=== PATIENT | male | born 1935 | race Caucasian/White ===

== ENCOUNTER → 2020-06-03 10:22 | Outpatient (CLI) | payer MEDICARE, OTHER, SELFPAY ==
[2020-06-04 10:41] LABS: COVID19 Sendout Not Detected (Not Detect)
== END ==
PROVIDERS: Family Provider Internal Medicine; PCP Internal Medicine; Visit Provider Physician Assistant
DX: Z11.59 Encounter for screening for other viral diseases (principal)
CPT/HCPCS: 87635

== ENCOUNTER 2020-06-06 11:44 | Day surgery (SDC) | payer MEDICARE, OTHER, SELFPAY ==
[2020-06-03 10:17] VITALS: BMI 28.5
[2020-06-06] VITALS (11 sets, daily range): BP systolic 121–158; BP diastolic 54–79; PULSE 51–63; RESP 11–20; TEMP 36.4–36.9; O2SAT 92–99; BMI 27.6
[2020-06-06] MEDS: LACTATED RINGERS 1,000 ML 42 ML IV ×2 (12:21→14:08)
--- NOTE | 2020-06-06 12:52 | PM.PREOP ---
Pre-operative Note COVID-19 COVID-19 status: Negative Result date/Date tested (Pos, Neg/Pending): 06/03/20 Interval Note History & Physical reviewed/Exam performed by Physician: Yes Changes to H&P: No
[2020-06-06] MEDS: CLINDAMYCIN 900 MG/50 ML PIGGYBACK 50 MG IV (13:24)
--- NOTE | 2020-06-06 13:40 | SUR.OPER ---
Supine on padded OR bed, head on pillow, arms secured on padded arm boards at <90 degrees abduction, legs uncrossed, safety belt at thigh, tape over blanket over lower legs.
[2020-06-06] MEDS: BUPIVACAINE 0.5% (PF) VIAL 30 ML INJ (13:46)
--- NOTE | 2020-06-06 15:14 | PM.OP.1 ---
Operative Date/Time/Diagnoses Date of procedure: 06/06/20 Time of procedure: 15:15 Pre-op diagnosis: Incisional ventral hernia reducible Post-op diagnosis: same Procedure & Clinicians Procedure: Hernia repair with an underlay of mesh Same procedure as scheduled: Yes Indications: Symptomatic hernia in an incision from a laparoscopic colectomy. Surgeon: Rony Garcia Click Yes if Unassisted: Yes Anesthesia Type: General Operative Notes Findings: Large sac with a defect measuring about 5 cm in diameter Closure Type: primary Specimen(s): none sent Prosthetic devices, grafts, tissues, transplants, or devices: Ventralex mesh 8 x 12 cm Estimated Blood Loss (mL): 20 Procedure in detail: The patient was placed supine on the operating table and underwent general LMA anesthesia. He was prepped and draped in the usual fashion. Local anesthetic was infiltrated and a transverse incision is made through the old scar. It was carried down level the hernia sac which was the essentially her right below the skin. The sac was dissected from the overlying tissues and the fascial edge cleared. Id sec did the peritoneum off the overlying muscular wall back at least 4 cm circumferentially. I removed a portion of the sac that was excessively redundant. I closed the defect with a running 2 0 Vicryl. The piece of mesh was then placed over top of this peritoneum and under the muscle wall. It was circumferentially sutured with 0 Vicryl in a running fashion. And occasional interrupted suture was also placed. I sutured the posterior fascia to the underlying mesh. Once this was completed the fascial defect was closed with [id number] 1. Ethibond suture. The subcu was closed with interrupted 3 0 Vicryl and the skin was closed with a running 4 0 Vicryl subcuticular stitch and Steri-Strips. Dressing was applied the patient was awakened and taken to recovery room good condition. Complications: none Post-operative Condition: stable Disposition: PACU Plan for aftercare: Follow-up in the office
[2020-06-06] MEDS: fentaNYL 100 MCG/2 ML INJ IV (15:32)
[2020-06-06] MEDS: ONDANSETRON 4 MG/2 ML INJ IV (15:52)
[2020-06-06] MEDS: OXYCODONE/ACETAMINOPHEN 5/325 TABLET 1 TAB PO ×2 (15:52→16:40)
--- NOTE | 2020-06-06 16:35 | SUR.PHASEII ---
Patient unable to fill prescription at [facility] due to unavailability of medication. (Hydrocodone with Ibuprofen). Called two other pharmacies and neither have that medication in stock. Paged Dr Garcia.
--- NOTE | 2020-06-06 17:08 | SUR.PHASEII ---
Received return call from Dr Garcia regarding pain medication unavailability. Dr Garcia will call in oxycodone for patient at [email or web address]. Patient to vehicle with all belongings returned. Provided discharge paperwork to and instructed to return to [email or web address] for new prescription. V/U. Home in stable condition.
== END 2020-06-06 17:10 | disposition home or self-care (01) ==
PROVIDERS: Family Provider Internal Medicine; Referring Provider Specialist; Visit Provider Specialist
PROC: (CPT 49560; principal; 2020-06-06 12:45)
DX: K43.2 Incisional hernia without obstruction or gangrene (principal); I10 Essential (primary) hypertension; G47.33 Obstructive sleep apnea (adult) (pediatric); Z85.51 Personal history of malignant neoplasm of bladder
CPT/HCPCS: 49560; 49568; C1781; J2405; J2704; J3010

== ENCOUNTER → 2020-08-06 13:22 | Outpatient (CLI) | payer MEDICARE, OTHER, SELFPAY ==
[2020-08-08 02:24] LABS: COVID19 Sendout Not Detected (Not Detect)
== END ==
PROVIDERS: Family Provider Internal Medicine; Visit Provider Nurse Practitioner
DX: Z11.59 Encounter for screening for other viral diseases (principal)
CPT/HCPCS: 87635

== ENCOUNTER 2020-08-09 09:46 | Day surgery (SDC) | payer MEDICARE, OTHER, SELFPAY ==
[2020-08-09] VITALS (7 sets, daily range): BP systolic 101–139; BP diastolic 56–76; PULSE 54–66; RESP 10–16; TEMP 36.2–37; O2SAT 96–99; BMI 27.7
--- NOTE | 2020-08-09 | PATH_ITS ---
[facility] Accession Number: [id number] . 01 Material submitted: . PART A: colon - POLYP @ 55 CM PART B: colon - ASCENDING COLON POLYP PART C: colon - POLYP @ 20CM . 01 Clinical history: . SDC . 02 Diagnosis: A. Colon, Polyp at 55 cm, Biopsy: Hyperplastic polyp. . B. Ascending Colon, Polyp, Biopsy: Tubular adenoma. . C. Polyp, 20 cm, Biopsy: Hyperplastic polyp. MRV 08/11/2020 1247 Local . 02 Electronically signed: . Preeti Urban MD, Pathologist NPI- [id number] . 01 Gross description: . Part A: POLYP @ 55 CM: Received in formalin is 1 fragment(s) of garcia, soft tissue measuring 5 x 0.3 x 0.2 cm submitted entirely in 1 cassette(s) Part B: ASCENDING COLON POLYP: Received in formalin are 2 fragment(s) of garcia, soft tissue measuring 0.2 x 0.2 x 0.2 cm to 0.5 x 0.3 x 0.3 cm submitted entirely in 1 cassette(s) Part C: POLYP @ 20CM: Received in formalin are 3 fragment(s) of garcia, soft tissue measuring 0.2 x 0.2 x 0.2 cm to 0.6 x 0.3 x 0.2 cm submitted entirely in 1 cassette(s) /MARY 08/10/2020 0145 Local . 02 Pathologist provided ICD-10: D12.2 . 02 CPT . 881768, 003114, [id number] Performed at: [address], [place], [place] [id number] MD Ryan Gallagher MD Phone: [phone] Performed at: 02 [facility] [address] [place] [id number] MD Preeti Urban MD Phone: [phone]
[2020-08-09] MEDS: LACTATED RINGERS 1,000 ML 200 ML IV (10:26)
--- NOTE | 2020-08-09 11:22 | PM.HP.1 ---
History of Present Illness History of Present Illness Date Patient Seen: 08/09/20 Time Patient Seen: 11:22 Chief complaint: SDC Narrative: The patient is a gentleman here for a screening colonoscopy. He had a colon resection a year ago and is this is his 1st colonoscopy since the resection. The last colonoscopy he had was prior to his operation. He does not appear to be followed by any oncologist. Patient History Medical History Allergic rhinitis (Chronic) BPH (benign prostatic hyperplasia) (Chronic) Erectile dysfunction (Chronic) GERD (gastroesophageal reflux disease) (Chronic) Glaucoma (Acute) Hearing loss (Acute) HTN (hypertension) (Chronic) Neoplasm, bladder (Chronic) Obstructive sleep apnea of adult (Chronic) Scoliosis (Acute) Spinal stenosis (Acute) Surgical History H/O transurethral resection of prostate (Resolved) History of surgery (Acute) Hx of appendectomy (Acute) Hx of cataract surgery (Acute) Hx of hernia repair (Acute) Hx of toe surgery (Acute) Hx of vasectomy (Acute) Status post biopsy of thyroid gland (Acute) Family & Social History Family History Father Heart disease Gallstones Cancer Mother Cancer Social History: household members spouse lives independently Yes caregiver/support person No Tobacco & Substance use: Smoking Status Never smoker alcohol intake current alcohol intake frequency 0-2 drinks per day Substance Use Type does not use Meds Home Medications and Allergies Home Medications Medication Instructions Recorded Confirmed Type latanoprost [Xalatan] 1 p [facility] HS #0 02/12/11 08/09/20 History alfuzosin [Uroxatral] 10 mg PO BEDTIME #0 11/09/11 08/09/20 History aspirin 81 mg tablet,delayed 81 mg PO DAILY 07/23/18 08/09/20 History release fluticasone propionate 50 2 spray NASAL DAILY 07/23/18 08/09/20 History mcg/actuation nasal spray,suspension loratadine 10 mg tablet 10 mg PO DAILY 07/23/18 08/09/20 History rabeprazole 20 mg tablet,delayed 20 mg PO DAILY 07/23/18 08/09/20 History release Respironics Dreamstation CPAP #1 ea 03/25/19 08/09/20 History amlodipine 10 mg tablet 10 mg PO DAILY 03/25/19 08/09/20 History lisinopril 40 mg tablet 40 mg PO BEDTIME 03/25/19 08/09/20 History cholecalciferol (vitamin D3) 25 25 mcg PO BID 05/31/20 08/09/20 History mcg (1,000 unit) capsule Allergies Allergy/AdvReac Type Severity Reaction Status Date / Time bimatoprost Allergy Mild SWELLING Verified 08/09/20 10:17 AT EYES cephalexin [CEPHALEXIN] Allergy Mild RASH Verified 08/09/20 10:17 scopolamine Allergy Mild BLURRED Verified 08/09/20 10:17 VISION, DISORIENTED Review of Systems Review of Systems Narrative: Had a recent hernia repair and is doing well. ROS: Yes All systems reviewed with the patient and are negative except as otherwise documented Exam Vital Signs (past 8 hours): - 08/09/20 10:27 Temperature 97.1 F L Pulse Rate 57 L Respiratory Rate 16 Blood Pressure 139/67 Pulse Oximetry 99 Narrative Exam Narrative: No apparent distress. Lungs are clear to auscultation. No rales or rhonchi. Heart regular rate and rhythm without murmur gallop. Abdomen is soft nontender without mass. He has a diastasis recti.. He is alert and oriented. Assessment & Plan Assessment & Plan narrative: The patient for a screening colonoscopy. I have discussed the procedure with them. Risks of bleeding, perforation which would necessitate major operation, failure to find remove all lesions, the potential tattoo were all discussed. All questions were answered. They wished to proceed.
--- NOTE | 2020-08-09 11:25 | PM.PREOP ---
Pre-operative Note COVID-19 COVID-19 status: Negative Result date/Date tested (Pos, Neg/Pending): 08/06/20 Interval Note History & Physical reviewed/Exam performed by Physician: Yes Changes to H&P: No ASA Class (for procedural sedation): III
[2020-08-09] MEDS: fentaNYL 250 MCG/5 ML INJ IV (11:39)
[2020-08-09] MEDS: MIDAZOLAM 5 MG/5 ML VIAL IV (11:51)
--- NOTE | 2020-08-09 12:10 | PM.OP.ENDO ---
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 Most quite small) Procedure & Clinicians Study performed: Colonoscopy with cold biopsy Same procedure as scheduled: Yes Indications: Screening in high risk patient. Last exam about a year ago Surgeon: Rony Garcia Procedure Notes SCOAP/Timeout: Performed Procedure in detail: The patient was placed in the left lateral decubitus position and underwent IV sedation directed by the surgeon consisting of fentanyl and Versed. Digital exam was unremarkable. I did not feel is prostate well . The scope was inserted and advanced through the rectum into the sigmoid, descending, transverse, and ascending colon. A small polyp was removed at 55 cm from the anal verge. Pressure was applied a stiffener inserted.. The cecum was reached identified by the ileocecal valve and the appendiceal opening. The scope was gradually brought out. I saw what appeared to be an end-to-end anastomosis at about 110 cm from the anal verge. Small Polyps were found at the ascending colon, 55 cm and 20 cm from the anal verge. There were all removed with biopsy forceps. The scope ultimately was retroflexed in the rectum. The appearance was normal. The scope was removed and the patient tolerated the procedure well. The prep was very good Scope withdrawal time: 8 minutes(12.5 total) Findings: polyp Specimen(s): other (Polyps) Complications: none Post-procedure Recommendations: Colonscopy in 3 years Follow up: as needed Disposition: PACU
== END 2020-08-09 13:10 | disposition home or self-care (01) ==
PROVIDERS: Family Provider Internal Medicine; PCP Internal Medicine; Referring Provider Specialist; Visit Provider Specialist
PROC: 0DJD8ZZ Inspection of Lower Intestinal Tract, Via Natural or Artificial Opening Endoscopic (ICD-10-PCS; CPT 45378; principal; 2020-08-09 10:45)
DX: Z12.11 Encounter for screening for malignant neoplasm of colon (principal); Z86.010 Personal history of colon polyps; Z90.49 Acquired absence of other specified parts of digestive tract; G47.33 Obstructive sleep apnea (adult) (pediatric); I10 Essential (primary) hypertension; K21.9 Gastro-esophageal reflux disease without esophagitis; D12.2 Benign neoplasm of ascending colon
CPT/HCPCS: 45380; J2250; J3010

== ENCOUNTER → 2020-12-12 16:17 | Outpatient (CLI) | payer MEDICARE, OTHER, SELFPAY ==
--- NOTE | 2020-12-12 16:20 | DI.MRI.S_ITS ---
PROCEDURE: MR ANKLE RT WO CON INDICATIONS: STRAIN OF RIGHT ARCHILLES TENDON INTIAL ECOUNTER TECHNIQUE: Noncontrast sagittal T1 spin echo and T2 fast spin echo with fat saturation, axial proton density fast spin echo and T2 fast spin echo with fat saturation, coronal T1 spin echo and T2 fast spin echo with fat saturation through the ankle/hindfoot. COMPARISON: None. FINDINGS: Image quality: Excellent. Bones and joints: Significant soft soft tissue swelling and edema surrounding ankle joint is seen. No bone marrow contusions or fractures. No hindfoot coalitions. No osteochondral injuries of the talar dome. No pathologic joint effusions. Medial structures: The posterior tibialis, flexor digitorum longus, and flexor hallucis longus tendons are intact. The posterior tibial neurovascular bundle appears normal within the tarsal tunnel, without extrinsic mass effect. The deep layer (anterior and posterior tibiotalar ligaments) and superficial layer (tibionavicular, tibiospring, and tibiocalcaneal ligaments) of the deltoid ligament appear normal. The spring ligament components (superomedial calcaneonavicular, medioplantar oblique calcaneonavicular, and inferoplantar longitudinal ligaments) are intact. Lateral structures: The anterior talofibular, calcaneofibular, and posterior talofibular ligaments appear intact. More superiorly, the anterior and posterior tibiofibular ligaments appear intact, as is the intermalleolar ligament. The tibiofibular syndesmosis is normal in width at 2 mm or less. The peroneus longus and brevis tendons demonstrate normal location and morphology. Adjacent bony peroneal tubercle and retrotrochlear prominence are normal in size. The sinus tarsi demonstrates normal fatty signal, without edema, fibrosis, or cyst formation. Visualized sinus tarsi components (cervical ligament, interosseous talocalcaneal ligament, roots of the inferior extensor retinaculum) appear normal. The calcaneonavicular and calcaneocuboid components of the bifurcate ligament appear intact. The dorsal calcaneocuboid ligament appears intact. Anterior structures: The tibialis anterior, extensor hallucis longus, and extensor digitorum longus tendons appear intact. The dorsal talonavicular ligament appears intact. Posterior and plantar structures: There is full-thickness rupture of Achilles tendon approximately 4.4 centimeter from its distal insertion of posterior calcaneus with up to 5.1 centimeter proximal retraction of torn tendon fibers and a fluid-filled gap at site of rupture with surrounding soft tissue edema. Medial and lateral bands of the plantar fascia are of normal thickness. No abductor digiti quinti muscle atrophy to suggest Cai neuropathy. IMPRESSION: 1. Full-thickness rupture of distal Achilles tendon approximately 4.4 cm from its insertion on posterior calcaneus with up to 5.1 cm proximal retraction of torn tendon fibers and a fluid-filled gap at the site of rupture with surrounding soft tissue edema. Extensive soft tissue edema and swelling surrounding ankle joint. 2. No marrow edema. No fracture or dislocation. Midfoot joint osteoarthritis. 3. Other ankle tendons are grossly intact. Medial and lateral ankle ligaments are intact. Dictated by: Brett Dale M.D. on 12/13/2020 at 9:54 Approved by: Brett Dale M.D. on 12/13/2020 at 10:07
--- NOTE | 2020-12-12 16:22 | DI.US.S_ITS ---
PROCEDURE: US PERIPH VENOUS LOW EXTREM RT INDICATIONS: RULE OUT DVT TECHNIQUE: Real-time imaging, as well as color and pulse Doppler interrogation, were performed of the lower extremity deep veins from the inguinal ligament to the popliteal fossa. COMPARISON: None. FINDINGS: The common femoral, femoral and popliteal veins are normally compressible, and free of intraluminal thrombus. Color and pulse Doppler demonstrate normal phasic intraluminal flow. There is normal augmentation response to distal compression maneuver. IMPRESSION: No right-sided lower extremity DVT found. Dictated by: Kevin Medina M.D. on 12/12/2020 at 17:18 Approved by: Kevin Medina M.D. on 12/12/2020 at 17:19
== END ==
PROVIDERS: Family Provider Internal Medicine; PCP Internal Medicine; Referring Provider Orthopaedic Surgery Foot and Ankle Surgery; Visit Provider Orthopaedic Surgery Foot and Ankle Surgery
DX: S86.011A Strain of right Achilles tendon, initial encounter (principal); R60.0 Localized edema; M19.071 Primary osteoarthritis, right ankle and foot; X58.XXXA Exposure to other specified factors, initial encounter
CPT/HCPCS: 73721; 93971

== ENCOUNTER → 2020-12-15 14:10 | Outpatient (CLI) | payer MEDICARE, OTHER, SELFPAY | PROVIDERS: Family Provider Internal Medicine; PCP Internal Medicine; Referring Provider Orthopaedic Surgery Foot and Ankle Surgery; Visit Provider Orthopaedic Surgery Foot and Ankle Surgery | DX: Z01.818 Encounter for other preprocedural examination (principal) | CPT/HCPCS: 93005 ==

== ENCOUNTER → 2021-07-31 10:36 | Outpatient (CLI) | payer MEDICARE, OTHER, SELFPAY ==
--- NOTE | 2021-07-31 | DI.US.S_ITS ---
PROCEDURE: US PERIPH VENOUS LOW EXTREM RT INDICATIONS: SWELLING TECHNIQUE: Real-time imaging, as well as color and pulse Doppler interrogation, were performed of the lower extremity deep veins from the inguinal ligament to the popliteal fossa. COMPARISON: None. FINDINGS: The common femoral, femoral and popliteal veins are normally compressible, and free of intraluminal thrombus. Color and pulse Doppler demonstrate normal phasic intraluminal flow. There is normal augmentation response to distal compression maneuver. Calf and ankle edema. IMPRESSION: No deep venous thrombosis identified within the right lower extremity. Dictated by: Brian MCKINNON Interpreted: Connie Chavez MD on 07/31/2021 at 11:11 Transcribed by: KERRY on 07/31/2021 at 11:12 Approved by: Connie Chavez M.D. on 07/31/2021 at 13:44
== END ==
PROVIDERS: Family Provider Internal Medicine; PCP Internal Medicine; Referring Provider Orthopaedic Surgery Foot and Ankle Surgery; Visit Provider Orthopaedic Surgery Foot and Ankle Surgery
DX: M79.89 Other specified soft tissue disorders (principal)
CPT/HCPCS: 93971

== ENCOUNTER 2021-12-15 12:42 | Emergency (ER) | payer MEDICARE, OTHER, SELFPAY ==
[2021-12-15] VITALS (38 sets, daily range): BP systolic 95–182; BP diastolic 54–88; PULSE 50–94; RESP 15–27; TEMP 36.2–36.4; O2SAT 89–100
--- NOTE | 2021-12-15 12:44 | DI.CT.S_ITS ---
PROCEDURE: CT STROKE INDICATIONS: stroke/seizure TECHNIQUE: Noncontrast 4.5 mm thick angled axial sections acquired from the foramen magnum to the vertex, with coronal reformats. For radiation dose reduction, the following was used: automated exposure control, adjustment of mA and/or kV according to patient size. COMPARISON: None. FINDINGS: Image quality: Excellent. CSF spaces: Basal cisterns are patent. No extra-axial fluid collections. The ventricles are symmetric in size and shape. Brain: No intracranial bleeds or masses. There is cerebral volume loss for age, with resultant ventricular and sulcal prominence. There are periventricular and deep white matter chronic small vessel ischemic changes. There is intracranial internal carotid artery atherosclerosis. Skull and face: Calvarium and visualized facial bones appear intact, without suspicious lesions. Sinuses: Visualized sinuses and mastoids are clear. IMPRESSION: 1. No CT evidence of acute intracranial abnormalities. 2. Age related atrophy and moderate white matter chronic small vessel ischemic changes. Findings were reported to Dr. Rudolph in the ER at 12:58 p.m. On 12/15/2021. This study fulfills neurological imaging criteria for inclusion or exclusion of acute stroke therapies based on available published neurological guidelines. Dictated by: Brett Dale M.D. on 12/15/2021 at 12:56 Approved by: Brett Dale M.D. on 12/15/2021 at 12:59
--- NOTE | 2021-12-15 12:44 | DI.CT.S_ITS ---
PROCEDURE: CT ANGIO HEAD AND NECK INDICATIONS: stroke, seizure TECHNIQUE: After the administration of intravenous contrast, 1 mm thick sections acquired from the aortic arch through the [place] of [place]. Post-contrast 4.5 mm thick sections then re-acquired from the foramen magnum to the vertex. 3-dimensional fqfaccs-saqhyeqhm-gksjzfbqoz (MIP) and/or volume rendering reformats were acquired of the central intracranial vasculature and neck separately. COMPARISON: [facility], CT, CT STROKE, 12/15/2021, 12:45. FINDINGS: Image quality: There is metallic streak artifact from patient's dental hardware limiting evaluation. BRAIN: CSF spaces: Basal cisterns are patent. No extra-axial fluid collections. The ventricles are symmetric in size and shape. There is mild cerebral volume loss, with resultant ventricular and sulcal prominence. Brain: No hematoma collections, mass, or mass effect. There are subcortical, periventricular and deep white matter hypodensities consistent with mild chronic small vessel ischemic changes. The lott-white matter junction appears preserved. No abnormal intracranial enhancement. Skull and face: Calvarium and facial bones appear intact, without suspicious lesions. Orbits appear normal. Sinuses: There is mild mucosal thickening within the maxillary and ethmoid sinuses. Mastoid air cells are clear. HEAD CT ANGIOGRAPHY: Anterior circulation: Intracranial internal carotid arteries are normal in size and appear patent bilaterally. There is mild atherosclerotic calcification along the cavernous segments of the internal carotid arteries. The paired anterior cerebral arteries appear patent bilaterally. There is an absent A1 segment of the right anterior cerebral artery consistent with an anatomic variant. The anterior communicating artery appears patent. The middle cerebral arteries appear patent bilaterally. No high-grade stenosis, occlusion, or filling defects. No cerebral aneurysms identified. Posterior circulation: Visualized portions of the vertebral arteries demonstrate normal caliber, and join to form a patent basilar artery. The posterior cerebral arteries appears patent bilaterally. No high-grade stenosis, occlusion, or filling defects. No cerebral aneurysms identified. NECK CT ANGIOGRAPHY: Carotid system: The great vessels demonstrate a conventional anatomy as they arise from the aortic arch. The origins of the common carotid arteries appear patent. The common carotid arteries demonstrate normal caliber and courses. There is calcified plaque with minimal narrowing in the right carotid bulb. Left carotid bulb appears widely patent. The internal carotid arteries demonstrate normal calibers and courses. Posterior circulation: There is moderate narrowing at the origin of the left vertebral artery. The origin of the right vertebral artery appears patent with mild focal narrowing proximally. The more superior extracranial portions of both vertebral arteries appear patent bilaterally. There is mild to moderate focal narrowing in the distal right vertebral artery. They join to form a patent basilar artery. Soft tissues: Visualized neck soft tissues demonstrate no suspicious abnormalities. Bones: No suspicious bony lesions. Visualized cervical spine appears normally aligned. IMPRESSION: 1. No acute intracranial abnormality. 2. No high-grade stenosis or occlusion of the central intracranial arteries. 3. Minimal narrowing in the right carotid bulb. Left carotid bulb appears widely patent. 4. Moderate narrowing at the origin of the left vertebral artery. Mild to moderate focal narrowing also demonstrated in the distal right vertebral artery. Any quantitative measurements of stenosis were performed using NASCET criteria. Dictated by: Ryan Lomax M.D. on 12/15/2021 at 13:22 Approved by: Ryan Lomax M.D. on 12/15/2021 at 13:31
--- NOTE | 2021-12-15 12:50 | ED_ITS ---
HPI - Neuro Symptoms/Deficit General Chief Complaint: Neuro Symptoms/Deficit Stated Complaint: Stroke Time Seen by Provider: 12/15/21 12:48 History of Present Illness HPI Narrative: 86 Male with history of hypertension,colon ressection presenting today as a code stroke. He was working in the yard this morning and doing well at 11:45 a.m. he came up to his . She initially was talking to him but then suddenly could not understand him. He collapsed. He when EMS arrived she did have some right- sided weakness he was able to follow commands. In route he had a gaze to the right and started having a seizure. He was given 5 mg of Versed. He was immediately to CT. states that she took a shower and he helped her change the bandage that was around 11:00 a.m.. I personally looked and read at noncontrast head CT at 12:55 p.m. in did not see any intracranial hemorrhage at that point we proceeded with a CT angiogram Patient no longer protecting airway and was intubated when he returned from CT. Related Data Home Medications Medication Instructions Recorded Confirmed latanoprost 0.005 % eye drops 1 drp [facility] HS #0 02/12/11 10/11/21 (Xalatan) alfuzosin 10 mg tablet,extended 10 mg PO BEDTIME #0 11/09/11 10/11/21 release 24 hr (Uroxatral) aspirin 81 mg tablet,delayed 81 mg PO DAILY 07/23/18 10/11/21 release fluticasone propionate 50 2 spray NASAL DAILY 07/23/18 10/11/21 mcg/actuation nasal spray,suspension loratadine 10 mg tablet 10 mg PO DAILY 07/23/18 10/11/21 rabeprazole 20 mg tablet,delayed 20 mg PO DAILY 07/23/18 10/11/21 release (AcipHex) Respironics Dreamstation CPAP #1 ea 03/25/19 10/11/21 amlodipine 10 mg tablet 10 mg PO DAILY 03/25/19 10/11/21 lisinopril 40 mg tablet 40 mg PO BEDTIME 03/25/19 10/11/21 cholecalciferol (vitamin D3) 25 25 mcg PO BID 05/31/20 10/11/21 mcg (1,000 unit) capsule Allergies Allergy/AdvReac Type Severity Reaction Status Date / Time bimatoprost Allergy Mild SWELLING Verified 12/15/21 16:01 AT EYES cephalexin [CEPHALEXIN] Allergy Mild RASH Verified 12/15/21 16:01 scopolamine Allergy Mild BLURRED Verified 12/15/21 16:01 VISION, DISORIENTED Review of Systems Review of Systems ROS Unobtainable: Unobtainable due to medical condition Patient History Medical History Allergic rhinitis BPH (benign prostatic hyperplasia) Erectile dysfunction GERD (gastroesophageal reflux disease) Glaucoma Hearing loss HTN (hypertension) Incisional hernia of anterior abdominal wall without obstruction or gangrene 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) Neoplasm, bladder Obstructive sleep apnea of adult (~2009) Scoliosis Spinal stenosis Surgical History H/O transurethral resection of prostate History of surgery History of uvulopalatopharyngoplasty (~2000) Hx of appendectomy Hx of cataract surgery Hx of hernia repair Hx of toe surgery Hx of vasectomy Status post biopsy of thyroid gland Family History Father Heart disease Gallstones Cancer Mother Cancer Social History marital status: details: hugo Andersen, lives in [place], [place] household members: spouse lives independently: Yes caregiver/support person: No Smoking Status: Never smoker alcohol intake: current substance use type: does not use Smoking Status: Never smoker alcohol intake frequency: 0-2 drinks per day Substance Use Type: does not use Exam Initial Vital Signs Initial Vital Signs: Vital Signs Pulse Rate 86 12/15/21 12:53 Respiratory Rate 23 12/15/21 12:53 Pulse Oximetry 89 L 12/15/21 12:53 Gen.: Unresponsive male sonorous respirations HEENT: No sign of head trauma. Pupils are pinpoint and equal Neck: No JVD Lungs: Clear bilaterally no respiratory distress Cardiac: Regular in rate no murmur Abdomen: Soft nontender no sign of trauma Extremities: Peripheral pulses intact no bony deformity Neurologic: Unresponsive GCS 3 no facial droop pupils reactive no obvious gaze deficit Procedures Intubation sedative: Ketamine (100) paralytic: Succinylcholine (100) ET Tube Size: 7.5 Tube Secured Depth (cm): 23 Tube Secured Location: teeth Tube Placement Confirmation: Visualized tube passing through cords, Equal breath sounds bilaterally, No breath sounds over epigastrium, Confirmation by capnometry and Chest Xray Patient Tolerated Procedure: Well Course Orders Ordered: ED Orders 12/15/21 12:24 Basic Metabolic Panel Stat Complete Blood Count AUTO DIFF Stat ETOH [Ethanol (ETOH)] Stat PT [Prothrombin Time INR] Stat PTT [Partial Thromboplastin Time] Stat Prolactin Stat Troponin & CK Cardiac Panel Stat 12/15/21 12:[address] angio head and neck Stat EKG-12 Lead Stat 12/15/21 13:05 Consult to Dietitian, Adult Routine Chest [XR chest 1V] Stat Ventilator Order 12/15/21 13:30 COVID19 -Nasal swab/Pre-Proc Stat 12/15/21 13:32 Arterial Blood Gas Stat 12/15/21 13:37 Urinalysis and Microscopic Stat Urine Drug Screen, Rapid Stat 12/15/21 16:00 CT head/brain wo con Stat Discontinued Medications Fentanyl (Fentanyl 100 Mcg/2 Ml Inj) 50 mcg IV Q30MIN PRN PRN Reason: Agitation Stop: 12/16/21 00:00 Last Admin: 12/15/21 15:44 Dose: 50 mcg Documented by: Admin: 12/15/21 15:18 Dose: 50 mcg Documented by: ALEXIS Fentanyl (Fentanyl 100 Mcg/2 Ml Inj) 100 mcg IV NOW ONE Stop: 12/15/21 13:21 Last Admin: 12/15/21 13:23 Dose: 100 mcg Documented by: ALEXIS Sodium Chloride (Normal Saline 0.9%) 1,000 mls @ 150 mls/hr IV CONT NATO Last Infusion: 12/15/21 16:20 Dose: 0 mls/hr Documented by: Admin: 12/15/21 13:15 Dose: 150 mls/hr Documented by: ALEXIS Fentanyl 1,000 mcg/ Dextrose 270 mls @ 22.032 mls/hr IV TITRATE NATO; Protocol Last Titration: 12/15/21 16:20 Dose: 0 mcg/kg/hr, 0 mls/hr Documented by: Titration: 12/15/21 15:18 Dose: 1.5 mcg/kg/hr, 33.048 mls/hr Documented by: Admin: 12/15/21 13:36 Dose: 1 mcg/kg/hr, 22.032 mls/hr Documented by: ALEXIS Midazolam HCl 50 mg/ Dextrose 250 mls @ 8.16 mls/hr IV TITRATE NATO; Protocol Last Titration: 12/15/21 16:20 Dose: 0 mg/kg/hr, 0 mls/hr Documented by: Titration: 12/15/21 15:43 Dose: 0.04 mg/kg/hr, 16.32 mls/hr Documented by: Titration: 12/15/21 15:18 Dose: 0.03 mg/kg/hr, 12.24 mls/hr Documented by: Admin: 12/15/21 13:31 Dose: 0.02 mg/kg/hr, 8.16 mls/hr Documented by: ALEXIS Alteplase, Recombinant (Activase) 7.3 mg in 7.3 mls @ 438 mls/hr 0.09 mg/kg (7. 3 mg) IV NOW ONE Stop: 12/15/21 13:35 Last Infusion: 12/15/21 13:49 Dose: 0 mls/hr Documented by: Admin: 12/15/21 13:48 Dose: 438 mls/hr Documented by: ALEXIS Alteplase, Recombinant (Activase) 66.1 mg in 66.1 mls @ 66.1 mls/hr 0.81 mg/kg (66.1 mg) IV NOW ONE Stop: 12/15/21 14:33 Last Infusion: 12/15/21 14:50 Dose: 0 mls/hr Documented by: Admin: 12/15/21 13:49 Dose: 66.1 mls/hr Documented by: ALEXIS Levetiracetam 1,000 mg/ Sodium (Chloride) 110 mls @ 440 mls/hr IV NOW ONE Stop: 12/15/21 13:38 Last Infusion: 12/15/21 14:17 Dose: 0 mls/hr Documented by: Admin: 12/15/21 14:00 Dose: 440 mls/hr Documented by: ALEXIS Succinylcholine Chloride (Succinylcholine 200 Mg/10 Ml Vial) 100 mg IV NOW ONE Stop: 12/15/21 13:01 Last Admin: 12/15/21 13:01 Dose: 100 mg Documented by: ALEXIS Vital Signs Vital signs: Vital Signs - 8 hr 12/15/21 12:53 12/15/21 12:55 12/15/21 13:00 Temperature Pulse Rate 86 83 83 Respiratory Rate 23 18 22 Blood Pressure 125/58 L 121/59 L Pulse Oximetry 89 L 91 93 12/15/21 13:05 12/15/21 13:10 12/15/21 13:15 Temperature Pulse Rate 94 H 88 84 Respiratory Rate 15 27 H 26 H Blood Pressure 176/79 H 182/88 H 165/78 H Pulse Oximetry 92 99 97 12/15/21 13:20 12/15/21 13:25 12/15/21 13:30 Temperature Pulse Rate 82 69 67 Respiratory Rate 18 16 17 Blood Pressure 134/66 102/59 L 99/54 L Pulse Oximetry 97 98 98 12/15/21 13:35 12/15/21 13:40 12/15/21 13:45 Temperature Pulse Rate 68 66 67 Respiratory Rate 16 18 19 Blood Pressure 98/59 L 95/59 L 104/62 Pulse Oximetry 99 97 97 12/15/21 13:50 12/15/21 13:55 12/15/21 14:00 Temperature 97.5 F L 97.5 F L 97.5 F L Pulse Rate 62 60 58 L Respiratory Rate 18 18 18 Blood Pressure 103/61 109/64 103/59 L Pulse Oximetry 97 97 97 12/15/21 14:05 12/15/21 14:10 12/15/21 14:15 Temperature 97.5 F L 97.3 F L 97.3 F L Pulse Rate 55 L 55 L 53 L Respiratory Rate 18 18 18 Blood Pressure 102/58 L 106/61 104/56 L Pulse Oximetry 97 98 97 12/15/21 14:20 12/15/21 14:25 12/15/21 14:30 Temperature 97.3 F L 97.3 F L 97.3 F L Pulse Rate 54 L 52 L 51 L Respiratory Rate 18 18 18 Blood Pressure 105/61 113/63 109/58 L Pulse Oximetry 98 98 98 12/15/21 14:35 12/15/21 14:40 12/15/21 14:45 Temperature 97.3 F L 97.3 F L 97.2 F L Pulse Rate 51 L 51 L 50 L Respiratory Rate 18 18 18 Blood Pressure 112/63 118/64 124/67 Pulse Oximetry 98 99 99 12/15/21 14:50 12/15/21 14:55 12/15/21 15:00 Temperature 97.2 F L 97.2 F L 97.3 F L Pulse Rate 51 L 50 L 51 L Respiratory Rate 18 18 18 Blood Pressure 124/65 123/65 134/69 Pulse Oximetry 99 99 100 12/15/21 15:05 12/15/21 15:10 12/15/21 15:15 Temperature 97.3 F L 97.3 F L 97.3 F L Pulse Rate 52 L 51 L 54 L Respiratory Rate 18 18 18 Blood Pressure 136/70 135/72 141/71 H Pulse Oximetry 100 100 100 12/15/21 15:20 12/15/21 15:25 12/15/21 15:30 Temperature 97.3 F L 97.3 F L 97.3 F L Pulse Rate 52 L 52 L 53 L Respiratory Rate 18 18 18 Blood Pressure 122/61 125/66 Pulse Oximetry 100 100 100 12/15/21 15:39 12/15/21 15:45 12/15/21 15:49 Temperature Pulse Rate 60 56 L 57 L Respiratory Rate 20 18 18 Blood Pressure 164/75 H 150/79 H 145/72 H Pulse Oximetry 100 100 12/15/21 15:50 Temperature Pulse Rate 56 L Respiratory Rate 18 Blood Pressure 143/73 H Pulse Oximetry 100 MDM - Neuro Symptoms/Deficit Lab Data Result diagrams: 12/15/21 12:24 12/15/21 12:24 Labs: Lab Results 12/15/21 12/15/21 12/15/21 Range/Units 12:24 12:24 12:24 WBC 6.3 (4.5-11.0) X10^3/uL RBC 4.87 (4.5-5.9) X10^6/uL Hgb 16.0 (13.5-17.5) g/dL Hct 45.9 (41-53) % MCV 94.2 (80-100) fL MCH 32.8 (26-34) PG MCHC 34.9 (30-36) % RDW 12.7 (11.6-14.8) % Plt Count 205 (150-400) X10^3/uL Neut % (Auto) 53.9 (50-75) % Lymph % (Auto) 28.3 (25-40) % [place] % (Auto) 12.5 (3-14) % Eos % (Auto) 4.5 H (2-4) % Baso % (Auto) 0.8 (0-2) % Neut # (Auto) 3400 (6315-3480) /uL Lymph # (Auto) 1800 (7738-7312) /uL [place] # (Auto) 800 (0-900) /uL Eos # (Auto) 300 (0-450) /uL Baso # (Auto) 100 (0-100) /uL PT 11.3 (10.1-12.7) SECONDS INR 1.0 (0.9-1.3) APTT 32 (26.4-36.2) SECONDS ABG pH (7.35-7.45) ABG pCO2 (35-45) mmHg ABG pO2 (80-100) mmHg ABG HCO3 (22-26) mmol/L ABG Total CO2 (21-31) mmol/L ABG O2 Saturation (95-100) % ABG Base Excess (-2-2) mmol/L FiO2 Sodium 130 L (137-145) mmol/L Potassium 4.2 (3.4-5.1) mmol/L Chloride 99 (98-107) mmol/L Carbon Dioxide 27 (22-32) mmol/L BUN 11 (9-20) mg/dL Creatinine 0.55 L (0.66-1.25) mg/dL Estimated GFR > 60.0 (>60) mL/min BUN/Creatinine Ratio 20.0 (6-22) Glucose 100 (80-110) mg/dL Calcium 9.3 (8.4-10.2) mg/dL Total Creatine Kinase (55-170) U/L CK-MB (CK-2) (<2.37) ng/mL CK-MB (CK-2) Rel Index (1.5-5.0) % Troponin I (0.01-0.034) ng/mL Prolactin (3.7-17.9) ng/mL Urine Color Urine Appearance Urine pH (4.5-8.0) Ur Specific [place] (1.000-1.035) Urine Protein (Negative) Urine Glucose (UA) (Negative) g/dL Urine Ketones (NEGATIVE) Urine Occult Blood (Negative) Urine Nitrate (Negative) Urine Bilirubin (NEGATIVE) Urine Urobilinogen (0.2) E.U./dL Ur Leukocyte Esterase (NEGATIVE) Urine RBC (0-5/HPF) Urine WBC (0-5/HPF) Urine Bacteria (None) Ur Culture Indicated? U Opiates 300ng/mL cut (Negative) Ur Oxycodone Screen (Negative) Urine Methadone Screen (Negative) Ur Barbiturates Screen (Negative) U Tricyclic Antidepress (Negative) Ur Phencyclidine Scrn (Negative) Ur Amphetamines Screen (Negative) U Methamphetamines Scrn (Negative) Ur MDMA Scrn (Ecstasy) (Negative) U Benzodiazepines Scrn (Negative) Urine Cocaine Screen (Negative) U Marijuana (THC) Screen (Negative) Ethyl Alcohol ( - 10) mg/dL SARS-CoV-2 (PCR) (Negative) 12/15/21 12/15/21 12/15/21 Range/Units 12:24 13:30 13:32 WBC (4.5-11.0) X10^3/uL RBC (4.5-5.9) X10^6/uL Hgb (13.5-17.5) g/dL Hct (41-53) % MCV (80-100) fL MCH (26-34) PG MCHC (30-36) % RDW (11.6-14.8) % Plt Count (150-400) X10^3/uL Neut % (Auto) (50-75) % Lymph % (Auto) (25-40) % [place] % (Auto) (3-14) % Eos % (Auto) (2-4) % Baso % (Auto) (0-2) % Neut # (Auto) (1124-3519) /uL Lymph # (Auto) (0948-3088) /uL [place] # (Auto) (0-900) /uL Eos # (Auto) (0-450) /uL Baso # (Auto) (0-100) /uL PT (10.1-12.7) SECONDS INR (0.9-1.3) APTT (26.4-36.2) SECONDS ABG pH 7.30 L (7.35-7.45) ABG pCO2 42.0 (35-45) mmHg ABG pO2 134 H (80-100) mmHg ABG HCO3 20 L (22-26) mmol/L ABG Total CO2 22 (21-31) mmol/L ABG O2 Saturation 99 (95-100) % ABG Base Excess -6.0 L (-2-2) mmol/L FiO2 50 Sodium (137-145) mmol/L Potassium (3.4-5.1) mmol/L Chloride (98-107) mmol/L Carbon Dioxide (22-32) mmol/L BUN (9-20) mg/dL Creatinine (0.66-1.25) mg/dL Estimated GFR (>60) mL/min BUN/Creatinine Ratio (6-22) Glucose (80-110) mg/dL Calcium (8.4-10.2) mg/dL Total Creatine Kinase 248 H (55-170) U/L CK-MB (CK-2) 6.61 H (<2.37) ng/mL CK-MB (CK-2) Rel Index 2.7 (1.5-5.0) % Troponin I < 0.012 (0.01-0.034) ng/mL Prolactin 45.1 H (3.7-17.9) ng/mL Urine Color Urine Appearance Urine pH (4.5-8.0) Ur Specific [place] (1.000-1.035) Urine Protein (Negative) Urine Glucose (UA) (Negative) g/dL Urine Ketones (NEGATIVE) Urine Occult Blood (Negative) Urine Nitrate (Negative) Urine Bilirubin (NEGATIVE) Urine Urobilinogen (0.2) E.U./dL Ur Leukocyte Esterase (NEGATIVE) Urine RBC (0-5/HPF) Urine WBC (0-5/HPF) Urine Bacteria (None) Ur Culture Indicated? U Opiates 300ng/mL cut (Negative) Ur Oxycodone Screen (Negative) Urine Methadone Screen (Negative) Ur Barbiturates Screen (Negative) U Tricyclic Antidepress (Negative) Ur Phencyclidine Scrn (Negative) Ur Amphetamines Screen (Negative) U Methamphetamines Scrn (Negative) Ur MDMA Scrn (Ecstasy) (Negative) U Benzodiazepines Scrn (Negative) Urine Cocaine Screen (Negative) U Marijuana (THC) Screen (Negative) Ethyl Alcohol < 10 ( - 10) mg/dL SARS-CoV-2 (PCR) Negative (Negative) 12/15/21 12/15/21 Range/Units 13:37 13:37 WBC (4.5-11.0) X10^3/uL RBC (4.5-5.9) X10^6/uL Hgb (13.5-17.5) g/dL Hct (41-53) % MCV (80-100) fL MCH (26-34) PG MCHC (30-36) % RDW (11.6-14.8) % Plt Count (150-400) X10^3/uL Neut % (Auto) (50-75) % Lymph % (Auto) (25-40) % [place] % (Auto) (3-14) % Eos % (Auto) (2-4) % Baso % (Auto) (0-2) % Neut # (Auto) (6288-6451) /uL Lymph # (Auto) (6819-0809) /uL [place] # (Auto) (0-900) /uL Eos # (Auto) (0-450) /uL Baso # (Auto) (0-100) /uL PT (10.1-12.7) SECONDS INR (0.9-1.3) APTT (26.4-36.2) SECONDS ABG pH (7.35-7.45) ABG pCO2 (35-45) mmHg ABG pO2 (80-100) mmHg ABG HCO3 (22-26) mmol/L ABG Total CO2 (21-31) mmol/L ABG O2 Saturation (95-100) % ABG Base Excess (-2-2) mmol/L FiO2 Sodium (137-145) mmol/L Potassium (3.4-5.1) mmol/L Chloride (98-107) mmol/L Carbon Dioxide (22-32) mmol/L BUN (9-20) mg/dL Creatinine (0.66-1.25) mg/dL Estimated GFR (>60) mL/min BUN/Creatinine Ratio (6-22) Glucose (80-110) mg/dL Calcium (8.4-10.2) mg/dL Total Creatine Kinase (55-170) U/L CK-MB (CK-2) (<2.37) ng/mL CK-MB (CK-2) Rel Index (1.5-5.0) % Troponin I (0.01-0.034) ng/mL Prolactin (3.7-17.9) ng/mL Urine Color Yellow Urine Appearance Clear Urine pH 6.5 (4.5-8.0) Ur Specific [place] 1.010 (1.000-1.035) Urine Protein 2+ H (Negative) Urine Glucose (UA) Negative (Negative) g/dL Urine Ketones Negative (NEGATIVE) Urine Occult Blood 1+ H (Negative) Urine Nitrate Negative (Negative) Urine Bilirubin Negative (NEGATIVE) Urine Urobilinogen 0.2 (0.2) E.U./dL Ur Leukocyte Esterase Negative (NEGATIVE) Urine RBC 0-1/hpf (0-5/HPF) Urine WBC 0-1/hpf (0-5/HPF) Urine Bacteria None seen (None) Ur Culture Indicated? Cult not indicated U Opiates 300ng/mL cut Negative (Negative) Ur Oxycodone Screen Negative (Negative) Urine Methadone Screen Negative (Negative) Ur Barbiturates Screen Negative (Negative) U Tricyclic Antidepress Negative (Negative) Ur Phencyclidine Scrn Negative (Negative) Ur Amphetamines Screen Negative (Negative) U Methamphetamines Scrn Negative (Negative) Ur MDMA Scrn (Ecstasy) Negative (Negative) U Benzodiazepines Scrn Negative (Negative) Urine Cocaine Screen Negative (Negative) U Marijuana (THC) Screen Negative (Negative) Ethyl Alcohol ( - 10) mg/dL SARS-CoV-2 (PCR) (Negative) Imaging Data CT scan - head: Radiologist's Impression: PROCEDURE:? CT STROKE ? INDICATIONS:? stroke/seizure ? TECHNIQUE:? Noncontrast 4.5 mm thick angled axial sections acquired from the foramen magnum to the vertex, with coronal reformats.? For radiation dose reduction, the following was used:? automated exposure control, adjustment of mA and/or kV according to patient size.? ? COMPARISON:? None. ? FINDINGS:? Image quality:? Excellent.? ? CSF spaces:? Basal cisterns are patent.? No extra-axial fluid collections.? The ventricles are symmetric in size and shape.? ? Brain:? No intracranial bleeds or masses.? There is cerebral volume loss for age, with resultant ventricular and sulcal prominence.? There are periventricular and deep white matter chronic small vessel ischemic changes.? There is intracranial internal carotid artery atherosclerosis.? ? Skull and face:? Calvarium and visualized facial bones appear intact, without suspicious lesions.? ? Sinuses:? Visualized sinuses and mastoids are clear.? ? IMPRESSION:? 1. No CT evidence of acute intracranial abnormalities. 2. Age related atrophy and moderate white matter chronic small vessel ischemic changes. ? Findings were reported to Dr. Rudolph in the ER at 12:58 p.m. On 12/15/2021. ? This study fulfills neurological imaging criteria for inclusion or exclusion of acute stroke therapies based on available published neurological guidelines.? ? ? Dictated by: Brett Dale M.D. on 12/15/2021 at 12:56 ? ? Approved by: Brett Dale M.D. on 12/15/2021 at 12:59 ? CTA - brain/neck: Radiologist's Impression: PROCEDURE:? CT ANGIO HEAD AND NECK ? INDICATIONS:? stroke, seizure ? TECHNIQUE:? After the administration of intravenous contrast, 1 mm thick sections acquired from the aortic arch through the [place] of [place].? Post-contrast 4.5 mm thick sections then re-acquired from the foramen magnum to the vertex.? 3-dimensional [id number] (MIP) and/or volume rendering reformats were acquired of the central intracranial vasculature and neck separately. ? COMPARISON:? Formerly [facility], CT, CT STROKE, 12/15/2021, 12:45. ? FINDINGS:? Image quality:? There is metallic streak artifact from patient's dental hardware limiting evaluation.? ? BRAIN:? CSF spaces:? Basal cisterns are patent.? No extra-axial fluid collections.? The ventricles are symmetric in size and shape.? There is mild cerebral volume loss, with resultant ventricular and sulcal prominence.? ? Brain:? No hematoma collections, mass, or mass effect.? There are subcortical, periventricular and deep white matter hypodensities consistent with mild chronic small vessel ischemic changes.? The ramirez-white matter junction appears preserved.? No abnormal intracranial enhancement. ? Skull and face:? Calvarium and facial bones appear intact, without suspicious lesions.? Orbits appear normal.? ? Sinuses:? There is mild mucosal thickening within the maxillary and ethmoid sinuses.? Mastoid air cells are clear. ? HEAD CT ANGIOGRAPHY:? Anterior circulation:? Intracranial internal carotid arteries are normal in size and appear patent bilaterally.? There is mild atherosclerotic calcification along the cavernous segments of the internal carotid arteries.? The paired anterior cerebral arteries appear patent bilaterally.? There is an absent A1 segment of the right anterior cerebral artery consistent with an anatomic variant.? The anterior communicating artery appears patent. The middle cerebral arteries appear patent bilaterally.? No high-grade stenosis, occlusion, or filling defects.? No cerebral aneurysms identified. ? Posterior circulation:? Visualized portions of the vertebral arteries demonstrate normal caliber, and join to form a patent basilar artery.? The posterior cerebral arteries appears patent bilaterally.? No high-grade stenosis, occlusion, or filling defects.? No cerebral aneurysms identified. ? NECK CT ANGIOGRAPHY:? Carotid system:? The great vessels demonstrate a conventional anatomy as they arise from the aortic arch.? The origins of the common carotid arteries appear patent.? The common carotid arteries demonstrate normal caliber and courses.? There is calcified plaque with minimal narrowing in the right carotid bulb.? Left carotid bulb appears widely patent.? The internal carotid arteries demonstrate normal calibers and courses.? ? Posterior circulation:? There is moderate narrowing at the origin of the left vertebral artery.? The origin of the right vertebral artery appears patent with mild focal narrowing proximally.? The more superior extracranial portions of both vertebral arteries appear patent bilaterally.? There is mild to moderate focal narrowing in the distal right vertebral artery.? They join to form a patent basilar artery.? ? Soft tissues:? Visualized neck soft tissues demonstrate no suspicious abnormalities.? ? Bones:? No suspicious bony lesions.? Visualized cervical spine appears normally aligned.? ? ? IMPRESSION:? ? 1. No acute intracranial abnormality. ? 2. No high-grade stenosis or occlusion of the central intracranial arteries. ? 3. Minimal narrowing in the right carotid bulb.? Left carotid bulb appears widely patent. ? 4.? Moderate narrowing at the origin of the left vertebral artery.? Mild to moderate focal narrowing also demonstrated in the distal right vertebral artery. ? Any quantitative measurements of stenosis were performed using NASCET criteria.? ? ? Dictated by: Ryan Lomax M.D. on 12/15/2021 at 13:22 ? ? Chest x-ray: Radiologist's Impression: PROCEDURE:? XR CHEST 1V ? INDICATIONS:? post-intubation, ng tube placement ? TECHNIQUE:? One view of the chest was acquired.? ? COMPARISON:? Formerly [facility], CR, CHEST 2 VIEW, 02/24/2016, 11:13. ? FINDINGS:? ? Surgical changes and devices:? Interval placement of endotracheal tube which projects 4.7 cm from the jono.? New line enteric tube extending beyond the left diaphragm with tip in the gastroduodenal region. ? Lungs and pleura:? Low lung volumes.? No consolidation, pleural effusions or pneumothorax.? ? Mediastinum:? Prominence of the cardiomediastinal silhouette, exaggerated by technique.? ? Bones and chest wall:? No suspicious bony lesions.? Overlying soft tissues appear unremarkable.? ? IMPRESSION:? Support devices as detailed above. ? ? Dictated by: Earl Seymour M.D. on 12/15/2021 at 13:25 ? ? CT Head #2: Radiologist's Impression: PROCEDURE:? CT HEAD/BRAIN WO CON ? INDICATIONS:? POST TPA ? TECHNIQUE:? Noncontrast 4.5 mm thick angled axial sections acquired from the foramen magnum to the vertex, with coronal and sagittal reformats.? For radiation dose reduction, the following was used:? automated exposure control, adjustment of mA and/or kV according to patient size.? ? COMPARISON:? [facility], CT, CT STROKE, 12/15/2021, 12:45. ? FINDINGS:? Image quality:? Excellent.? ? CSF spaces:? Basal cisterns are patent.? No extra-axial fluid collections.? Ventricles are normal in size and shape.? ? Brain:? Age-related global cerebral volume loss and chronic microvascular ischemic changes.? Vertebral and carotid artery atherosclerosis.? No midline shift.? No intracranial masses or hemorrhage.? [place]-white matter interface is normal.? ? Skull and face:? Calvarium and visualized facial bones are intact, without suspicious lesions.? ? Sinuses:? Visualized sinuses and mastoids are clear.? ? IMPRESSION:? No acute intracranial abnormality.? Age-related global cerebral volume loss and chronic microvascular ischemic changes as seen on prior study. ? ? Dictated by: Mina Rodriguez M.D. on 12/15/2021 at 15:52 ? ? ECG Data Interpretation: Sinus rhythm rate 64 TX interval 224 QRS 80 QTC 449 MDM Narrative Medical decision making narrative: Patient was brought immediately to CT. He had no obvious intracranial hemo rrhage CT angio was done. Patient had an oral airway placed while in CT for sonorous respirations. He maintained blood pressure heart rate and O2 saturation. The patient was immediately brought back to the resuscitation room where he was intubated for airway protection. 1310 Discussed case with tele stroke Dr. Hilario, in regards to if the patient is a tPA candidate or not. He has talked to himself, at this time they are both in agreeance to push tPA. He also recommends loading 1000 mg of Keppra. 1445 Dr. Patton at [facility] is noted in patient's symptoms test results will accept patient when bed available 1450 Dr. Monique at [facility] has been updated patient's symptoms test results requests repeat head CT before transfer to be sure there was no complication from tPA. Request that we try other places they are boarding many people, but will accept if no other places available 1500zdr. Cassandra, at [facility] updated patient's symptoms test results happily accepts patient. Patient is fortunately accepted at [facility] he is given are regular. at bedside agrees with helicopter transfer. Patient is in CT for repeat Patient's repeat head CT did not show any new bleeding from tPA. Critical Care Time Critical Care Time Critical Care Time: Yes Total Critical Care Time: 52 Attestation: The high probability of a clinically significant, sudden or life threatening deterioration of the neurovascular system(s) required my full and direct attention, intervention and personal management. The aggregate critical care time was 52 minutes. This time is in addition to time spent performing reported procedures but includes the following: [x] Data Review and interpretation [x] Patient assessment and monitoring of vital signs [x] Documentation [x] Medication orders and management Discharge Plan [facility] Impression: CVA (cerebral vascular accident) Prescriptions: No Action latanoprost [Xalatan] 0.005 % drops 1 drp OPHTH HS Qty: 0 0RF alfuzosin [Uroxatral] 10 MG tablet extended release 24 hr 10 mg PO BEDTIME Qty: 0 0RF cholecalciferol (vitamin D3) 25 mcg (1,000 unit) capsule 25 mcg PO BID 0RF rabeprazole [AcipHex] 20 mg tablet,delayed release (DR/EC) 20 mg PO DAILY 0RF fluticasone propionate 50 mcg/actuation spray,suspension 2 spray NASAL DAILY 0RF aspirin 81 mg tablet,delayed release (DR/EC) 81 mg PO DAILY 0RF Label Comments: takes every 3rd day loratadine 10 mg tablet 10 mg PO DAILY 0RF lisinopril 40 mg tablet 40 mg PO BEDTIME 0RF amlodipine 10 mg tablet 10 mg PO DAILY 0RF (DME) RespirSynthetic Genomicss Dreamstation CPAP Qty: 1 0RF Dose Instruction: As directed Label Comments: Pressure: 8-14 cmH2O DME: Medicare [place] Rx Instructions: As directed
[2021-12-15] MEDS: KETAMINE 50 MG/5 ML *SYRINGE 100 MG (13:00)
[2021-12-15] MEDS: SUCCINYLCHOLINE 200 MG/10 ML VIAL 100 MG IV (13:01)
[2021-12-15 13:04] LABS: Add Manual Diff / Slide Review NO; Basophils Absolute Auto 100 /uL (0-100); Basophils Percent Auto 0.8 % (0-2); Eosinophils Absolute Auto 300 /uL (0-450); Eosinophils Percent Auto 4.5 % (2-4); Hematocrit 45.9 % (41-53); Lymphocytes Absolute Auto 1800 /uL (1100-4500); Lymphocytes Percent Auto 28.3 % (25-40); Mean Corpuscular HGB Conc 34.9 % (30-36); Mean Corpuscular Hemoglobin 32.8 PG (26-34); Mean Corpuscular Volume 94.2 fL (80-100); Monocytes Absolute Auto 800 /uL (0-900); Monocytes Percent Auto 12.5 % (3-14); Neutrophils Absolute Auto 3400 /uL (1500-7000); Neutrophils Percent Auto 53.9 % (50-75); Platelet Count 205 X10^3/uL (150-400); Red Blood Cell Count 4.87 X10^6/uL (4.5-5.9); Red Cell Distribution Width 12.7 % (11.6-14.8); White Blood Cell Count 6.3 X10^3/uL (4.5-11.0)
--- NOTE | 2021-12-15 13:05 | DI.RAD.S_ITS ---
PROCEDURE: XR CHEST 1V INDICATIONS: post-intubation, ng tube placement TECHNIQUE: One view of the chest was acquired. COMPARISON: [facility], , CHEST 2 VIEW, 02/24/2016, 11:13. FINDINGS: Surgical changes and devices: Interval placement of endotracheal tube which projects 4.7 cm from the jono. New line enteric tube extending beyond the left diaphragm with tip in the gastroduodenal region. Lungs and pleura: Low lung volumes. No consolidation, pleural effusions or pneumothorax. Mediastinum: Prominence of the cardiomediastinal silhouette, exaggerated by technique. Bones and chest wall: No suspicious bony lesions. Overlying soft tissues appear unremarkable. IMPRESSION: Support devices as detailed above. Dictated by: Earl Seymour M.D. on 12/15/2021 at 13:25 Approved by: Earl Seymour M.D. on 12/15/2021 at 13:25
[2021-12-15 13:09] LABS: Prothrombin Time 11.3 SECONDS (10.1-12.7)
[2021-12-15 13:12] LABS: PTT Partial Thromboplastin Tim 32 SECONDS (26.4-36.2)
[2021-12-15] MEDS: SODIUM CHLORIDE 0.9% 1,000 ML 150 ML IV (13:15)
[2021-12-15 13:20] LABS: Blood Urea Nitrogen 11 mg/dL (9-20); Calcium 9.3 mg/dL (8.4-10.2); Carbon Dioxide 27 mmol/L (22-32); Chloride 99 mmol/L (98-107); Estimated Glomerular Filt Rate > 60.0 mL/min (>60); Glucose 100 mg/dL (80-110); HEMOLYSIS 28 (0-50); Potassium 4.2 mmol/L (3.4-5.1); Sodium 130 mmol/L (137-145)
[2021-12-15] MEDS: MIDAZOLAM 5 MG/ML VIAL ×2 (13:20→16:04)
[2021-12-15 13:21] LABS: Creatine Kinase 248 U/L (55-170); Ethanol (ETOH) < 10 mg/dL
[2021-12-15] MEDS: fentaNYL 100 MCG/2 ML INJ IV (13:23)
[2021-12-15] MEDS: MIDAZOLAM 50 MG in DEXTROSE 5% IN WATER 240 ML 8.16 ML IV (13:31)
[2021-12-15 13:33] LABS: Troponin I < 0.012 ng/mL (0.01-0.034)
[2021-12-15 13:36] LABS: CKMB % Relative Index 2.7 % (1.5-5.0); Creatine Kinase MB 6.61 ng/mL (<2.37)
[2021-12-15] MEDS: fentaNYL 1,000 MCG in DEXTROSE 5% IN WATER 250 ML 22.032 ML IV (13:36)
[2021-12-15 13:37] LABS: Prolactin 45.1 ng/mL (3.7-17.9)
[2021-12-15] MEDS: ALTEPLASE 438 MG IV (13:48)
[2021-12-15] MEDS: ALTEPLASE IV (13:49)
[2021-12-15 13:52] LABS: Fractionated Inspired Oxygen 50; HCO3 ABG 20 mmol/L (22-26); Oxygen Saturation ABG 99 % (95-100); PO2 ABG 134 mmHg (80-100); TCO2 ABG 22 mmol/L (21-31)
[2021-12-15 13:52] LABS: UR Morphine/Opiate cutoff 300 Negative (Negative); Ur Creatinine Normal (Normal); Ur Specific Gravity Normal (Normal); Urine Amphetamines Negative (Negative); Urine Barbiturates Negative (Negative); Urine Benzodiazepines Negative (Negative); Urine Cocaine Negative (Negative); Urine MDMA Negative (Negative); Urine Methadone Negative (Negative); Urine Methamphetamines Negative (Negative); Urine Oxycodone Negative (Negative); Urine Phencyclidine Negative (Negative); Urine Tetrahydrocannabinol Negative (Negative); Urine Tricyclic Antidepressant Negative (Negative); Urine pH Normal (Normal)
[2021-12-15] MEDS: levETIRAcetam 1,000 MG in SODIUM CHLORIDE 0.9% 100 ML 440 ML IV (14:00)
[2021-12-15 14:06] LABS: COVID19 -Nasal RAPID Negative (Negative)
[2021-12-15 14:20] LABS: Appearance Urine UA CLEAR; Bilirubin Urine UA NEGATIVE (NEGATIVE); Color Urine UA YELLOW; Glucose Urine UA NEGATIVE (Negative); Ketones Urine UA NEGATIVE (NEGATIVE); Leukocyte Esterase Urine UA NEGATIVE (NEGATIVE); Nitrite Urine UA NEGATIVE (Negative); Occult Blood Urine UA 1+ (Negative); Protein Urine UA 2+ (Negative); Urobilinogen Urine UA 0.2 E.U./dL (0.2); pH Urine UA 6.5 (4.5-8.0)
[2021-12-15 14:30] LABS: Bacteria Urine None Seen; Culture Indicated Urine Cult Not Indicated; RBC Urine 0-1/HPF (0-5/HPF); WBC Urine 0-1/HPF (0-5/HPF)
[2021-12-15] MEDS: fentaNYL 100 MCG/2 ML INJ 50 MCG IV ×2 (15:18→15:44)
--- NOTE | 2021-12-15 16:00 | DI.CT.S_ITS ---
PROCEDURE: CT HEAD/BRAIN WO CON INDICATIONS: POST TPA TECHNIQUE: Noncontrast 4.5 mm thick angled axial sections acquired from the foramen magnum to the vertex, with coronal and sagittal reformats. For radiation dose reduction, the following was used: automated exposure control, adjustment of mA and/or kV according to patient size. COMPARISON: Merged With [facility], CT, CT STROKE, 12/15/2021, 12:45. FINDINGS: Image quality: Excellent. CSF spaces: Basal cisterns are patent. No extra-axial fluid collections. Ventricles are normal in size and shape. Brain: Age-related global cerebral volume loss and chronic microvascular ischemic changes. Vertebral and carotid artery atherosclerosis. No midline shift. No intracranial masses or hemorrhage. Ramirez-white matter interface is normal. Skull and face: Calvarium and visualized facial bones are intact, without suspicious lesions. Sinuses: Visualized sinuses and mastoids are clear. IMPRESSION: No acute intracranial abnormality. Age-related global cerebral volume loss and chronic microvascular ischemic changes as seen on prior study. Dictated by: Mina Rodriguez M.D. on 12/15/2021 at 15:52 Approved by: Mina Rodriguez M.D. on 12/15/2021 at 15:53
--- NOTE | 2021-12-15 16:29 | PC.NURSE ---
Note: all belongings sent home from ED with including clothing, wallet, keys.
--- NOTE | 2021-12-15 16:33 | PC.NURSE ---
Please note, Midazolam, fentanyl and normal saline continued with ALNW. Discontinued for purposes of [facility] charting only.
== END 2021-12-15 16:35 | disposition short-term general hospital (02) ==
PROVIDERS: Emergency Medicine; Emergency Provider Emergency Medicine; Family Provider Internal Medicine
DX: I63.9 Cerebral infarction, unspecified (principal); I10 Essential (primary) hypertension; Z20.822 Contact with and (suspected) exposure to COVID-19
CPT/HCPCS: 31500; 36415; 36600; 70450; 70496; 70498; 71045; 80048; 80305; 80320; 81001; 82550; 82553; 82805; 84146; 84484; 85025; 85610; 85730; 87635; 93005; 93010; 94799; 96365; 96366; 96368; 96375; 99285; 99291; 99292; C9803; J0330; J1953; J2250; J2997; J3010; Q9967

== ENCOUNTER → 2022-03-27 14:33 | Outpatient (CLI) | payer MEDICARE, OTHER, SELFPAY ==
[2021-12-15 15:29] VITALS: PULSE 51; RESP 18; O2SAT 100
== END ==
PROVIDERS: Family Provider Internal Medicine; PCP Internal Medicine; Referring Provider Internal Medicine; Visit Provider Internal Medicine

== ENCOUNTER 2022-04-12 11:54 | Emergency (ER) | payer MEDICARE, OTHER, SELFPAY ==
[2021-12-15 15:29] VITALS: PULSE 51; RESP 18; O2SAT 100
[2022-04-12 12:00] VITALS: BP 199/91; PULSE 59; RESP 20; TEMP 36.1; O2SAT 98; BMI 27.8
[2022-04-12 13:25] VITALS: BP 184/87
[2022-04-12 13:30] VITALS: BP 195/84
--- NOTE | 2022-04-12 13:44 | ED_ITS ---
HPI - Abdominal Pain General Chief Complaint: Abdominal Pain Stated Complaint: Suspects Hernia, Abd Time Seen by Provider: 04/12/22 13:24 Source: patient Mode of arrival: Ambulatory History of Present Illness HPI narrative: Patient is a 86-year-old male history of colon resection for follow-up, hypertension, TIA presenting today with with what he thinks is a hernia. He says this morning he stood up he felt a bulge in his abdomen. It was quite tender he pushed on it and it went away. He has no further abdominal pain no bulging no nausea no vomiting no change in bowel habits. He overall is feeling significantly better and back to his normal self. Related Data Home Medications Medication Instructions Recorded Confirmed latanoprost 0.005 % eye drops 1 drp [facility] ##0 02/12/11 04/11/22 (Xalatan) alfuzosin 10 mg tablet,extended 10 mg PO BEDTIME ##0 11/09/11 04/11/22 release 24 hr (Uroxatral) aspirin 81 mg tablet,delayed 81 mg PO DAILY 07/23/18 04/11/22 release fluticasone propionate 50 2 spray intranasal DAILY 07/23/18 04/11/22 mcg/actuation nasal spray,suspension loratadine 10 mg tablet 10 mg PO DAILY 07/23/18 04/11/22 Respironics Dreamstation CPAP #1 ea 03/25/19 04/11/22 cholecalciferol (vitamin D3) 25 25 mcg PO BID 05/31/20 04/11/22 mcg (1,000 unit) capsule rosuvastatin 5 mg tablet 5 mg PO DAILY 01/15/22 04/11/22 chlorthalidone 25 mg tablet 12.5 mg PO DAILY 04/11/22 04/11/22 psyllium husk 3.4 gram/5.4 gram 1 tbsp PO DAILY 04/11/22 04/11/22 oral powder (Metamucil) sodium chloride, sodium ea .Route 04/11/22 04/11/22 bicarb-nasal rinse squeeze bottle with packet (Neilmed Sinus Rinse Complete with packet) Previous Rx's Medication Instructions Recorded lisinopril 40 mg tablet 40 mg PO BEDTIME #90 tabs 01/15/22 rabeprazole 20 mg tablet,delayed 20 mg PO DAILY #90 tabs 01/15/22 release (AcipHex) Allergies Allergy/AdvReac Type Severity Reaction Status Date / Time bimatoprost Allergy Mild SWELLING Verified 04/12/22 12:05 AT EYES cephalexin [CEPHALEXIN] Allergy Mild RASH Verified 04/12/22 12:05 scopolamine Allergy Mild BLURRED Verified 04/12/22 12:05 VISION, DISORIENTED Review of Systems Review of Systems Narrative: GENERAL: Denies chills, fatigue, malaise, fever, sweats, travel HEENT: Denies sinus pain, ear pain, sore throat, difficulty swallowing, neck pain RESPIRATORY: Denies dyspnea, cough, wheezing, hemoptysis, sputum. CARDIOVASCULAR: Denies chest pain, palpitations, orthopnea, edema GASTROINTESTINAL: See HPI : Denies dysuria, frequency, incontinence, hematuria, urinary retention, flank pain. MUSCULOSKELETAL: Denies weakness, joint pain, or bony pain SKIN: No rash, no erythema, no pruritus NEUROLOGIC: Denies weakness, dizziness, headache, numbness, change in speech, confusion PSYCHIATRIC: No concerning psychosocial issues. 12 point review of systems is negative except for those stated above and HPI Patient History Medical History Allergic rhinitis (~194) Ankle pain (~2019) Bladder cancer (~2006) BPH (benign prostatic hyperplasia) (~1997) BPH w urinary obs/LUTS Cataracts, bilateral Cerebrovascular disease Chicken pox Colon polyps Erectile dysfunction Essential hypertension Foot pain Fractures GERD (gastroesophageal reflux disease) Glaucoma (~2000) Hearing loss (~2008) Hemorrhoid (~1957) History of elevated PSA (~2009) HTN (hypertension) Incisional hernia of anterior abdominal wall without obstruction or gangrene 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) Mixed hyperlipidemia Mumps Neoplasm, bladder Obstructive sleep apnea of adult (~2009) Prostate cancer (~2009) Scoliosis Spinal stenosis Venous insufficiency Surgical History Anesthesia H/O transurethral resection of prostate History of surgery History of uvulopalatopharyngoplasty (~2000) Hx of appendectomy Hx of cataract surgery Hx of hernia repair Hx of toe surgery Hx of vasectomy Status post biopsy of thyroid gland Family History Father Heart disease Gallstones Cancer Mother Cancer Grandfather Heart disease Social History marital status: details: hugo Andersen, lives in [place], [place] household members: spouse lives independently: Yes caregiver/support person: No Smoking Status: Never smoker alcohol intake: current substance use type: does not use Smoking Status: Never smoker alcohol intake frequency: 0-2 drinks per day Substance Use Type: does not use Exam Initial Vital Signs Initial Vital Signs: Vital Signs Temperature 97.0 F L 04/12/22 12:00 Pulse Rate 59 L 04/12/22 12:00 Respiratory Rate 20 04/12/22 12:00 Blood Pressure 199/91 H 04/12/22 12:00 Pulse Oximetry 98 04/12/22 12:00 Oxygen Delivery Method 04/12/22 12:00 GENERAL: Alert pleasant 86-year-old and in no acute distress. HEENT: Head atraumatic,EOMI, pupils reactive, face symmetric, moist mucous membranes CARDIOVASCULAR: Regular rate and rhythm without murmurs, rubs or gallops. RESPIRATORY: Breath sounds equal bilaterally, no wheezes rales or rhonchi. ABDOMEN: Soft, nontender. No appreciable hernia felt. Even while standing I do not appreciate any bulging. Normoactive bowel sounds all 4 quadrants. No guarding or rebound. EXTREMITIES: Normal range of motion, no clubbing or edema. Neurovascularly intact NEUROLOGICAL: Alert and oriented x4.Normal gait and speech. SKIN: Warm, dry, no laceration, no petechiae, no rashes or lesions. Course Vital Signs Vital signs: Vital Signs - 8 hr 04/12/22 12:00 04/12/22 13:25 04/12/22 13:30 Temperature 97.0 F L Pulse Rate 59 L Respiratory Rate 20 Blood Pressure 199/91 H 184/87 H 195/84 H Pulse Oximetry 98 Oxygen Delivery Method Room Air 04/12/22 13:52 Temperature Pulse Rate 52 L Respiratory Rate Blood Pressure 183/89 H Pulse Oximetry 98 Oxygen Delivery Method Room Air MDM - Abdominal Pain MDM Narrative Medical decision making narrative: At this time the patient does have an reproducible hernia. He currently is completely asymptomatic. I see no need for any imaging or blood work. He is nontender in his abdomen. Discharge Plan Departure Patient Disposition: Home Clinical Impression: Ventral hernia Instructions: Ventral Hernia Activity Restrictions/Additional Instructions: *You have been diagnosed with probable ventral hernia *What to do: At this time likely had a ventral hernia. I am glad that you were able to reduce it your self. I anticipate that it may pop out again. Try to lay down and push on it to get it to reduce herself. If unable to do so than please return to the emergency department *Continue to take medications as directed *Follow up with your primary care provider in 2-3 days or call [phone] *Return to ER if you should have increasing abdominal pain, persistent vomiting, is increased pain unable to push bulging or any new, worsening or concerning symptoms Prescriptions: No Action latanoprost [Xalatan] 0.005 % drops 1 drp OPHTH HS Qty: 0 alfuzosin [Uroxatral] 10 MG tablet extended release 24 hr 10 mg PO BEDTIME Qty: 0 rosuvastatin 5 mg tablet 5 mg PO DAILY rabeprazole [AcipHex] 20 mg tablet,delayed release (DR/EC) 20 mg PO DAILY Qty: 90 3RF lisinopril 40 mg tablet 40 mg PO BEDTIME Qty: 90 3RF chlorthalidone 25 mg tablet 12.5 mg PO DAILY Rx Instructions: 1/2 tablet daily cholecalciferol (vitamin D3) 25 mcg (1,000 unit) capsule 25 mcg PO BID Neilmed Sinus Rinse Complete Packet With Rinse Device .Route Rx Instructions: . Metamucil 3.4 gram/5.4 gram powder 1 tbsp PO DAILY Rx Instructions: mix into at least 8 oz of water or juice before administering fluticasone propionate 50 mcg/actuation spray,suspension 2 spray NASAL DAILY aspirin 81 mg tablet,delayed release (DR/EC) 81 mg PO DAILY Label Comments: takes every 3rd day loratadine 10 mg tablet 10 mg PO DAILY (DME) Respironics Dreamstation CPAP Qty: 1 Dose Instruction: As directed Label Comments: Pressure: 8-14 cmH2O DME: Medicare [place] Rx Instructions: As directed Referrals: Sanford Kramer MD [Primary Care Provider] - Visit Report Forms: Patient Portal/API
[2022-04-12 13:52] VITALS: BP 183/89; PULSE 52; O2SAT 98
== END 2022-04-12 13:53 | disposition home or self-care (01) ==
PROVIDERS: Emergency Provider Emergency Medicine; Family Provider Internal Medicine; PCP Internal Medicine
DX: K43.9 Ventral hernia without obstruction or gangrene (principal)
CPT/HCPCS: 99281

== ENCOUNTER → 2022-04-24 11:50 | Outpatient (CLI) | payer MEDICARE, OTHER, SELFPAY ==
[2021-12-15 15:29] VITALS: PULSE 51; RESP 18; O2SAT 100
== END ==
PROVIDERS: Family Provider Internal Medicine; PCP Internal Medicine; Referring Provider Internal Medicine; Visit Provider Internal Medicine

== ENCOUNTER 2022-04-24 13:30 | Outpatient (RCR) | payer MEDICARE, OTHER, SELFPAY ==
[2021-12-15 15:29] VITALS: PULSE 51; RESP 18; O2SAT 100
--- NOTE | 2022-04-19 13:13 | ST.OP.ACL ---
Visit Care Team Role Provider Type Sanford Kramer MD Attending Provider Physician Family Provider Primary Care Provider Referring Provider Specialty: Internal Medicine Address: [address] [place] [address], [facility] Email: [email or web address] Adult Cognitive Linguistic Evaluation PRODUCT PICKER Adult Cognitive Linguistic Eval Start: 04/19/22 11:01 Freq: Status: Active Protocol: Document 04/19/22 11:02 REUBENK (Rec: 04/19/22 11:31 LNK [id number]) Adult Cognitive Linguistic Evaluation Session Time Visit Start Time 10:30 Visit Stop Time 11:30 Total Visit Minutes 60 Visit Information Visit Number 1 Plan of Care Dates 04/18/22-07/19/[address] Kramer Reason for Referral s/p TIA/cognitive deficits Setting Assessment Location Outpatient Care Visit Type Note Type Initial evaluation Next Note Type Next Note Type Treatment Note Patient Information Identification Type Name,Date of Patient History Pt was accompanied by his Nathaly. Pt and reported that pt has history of cerebrovascular event considered ischemic presenting with a TIA on 12/15/2021, with right-sided weakness and a seizure with aphasia, apparently resolved by the time of ER visit. He was reported as recovering completely except for some bruising that occurred when he fell at the time while gardening. He was given TPA IV at [facility] ER and transferred and hospitalized overnight at [facility] in [place]. With a normal brain MRI 12/17/2021, he was discharged home. The cerebrovascular accident has left no sequelae but pt's notices he seems to be a little more forgetful. Occupation Status retired Previous Therapy Previous Speech-Language Therapy No Subjective Patient Report Pt does not think he has difficulty with memory, despite 's ongoing concerns. Assessment Oral Motor Examination Completed Informal assessment indicated structures and function to be WNL Informal Assessment Receptive Language Normal Yes Expressive Language Normal Yes Pragmatic Language Normal Yes Pragmatic Language Impairment(s) Turn-taking Speech Normal Yes Cognition Normal notes pt has short term memory problems lately Cognitive Impairment(s) Short-term memory,Executive functioning Formal Assessment Standardized Test/Screener Type Research [facility] Mental Status (UMS) Administration Complete Results The SLUMS was administered 03/27 with results demonstrating difficulty with clock drawing . He was ten referred for additional cognitive assessment with ST. The Cognitive Linguistic Quick Test + (CLQT+) was administered and completed. The CLQT assesses 6 cognitive domains: Attention, Memory, Executive Functions, Language, Visual Spatial skills and a Clock Drawing task. There are 10 subtests that contribute to, and comprise, the overall cognition scores. The 10 subtests are as follows: Personal Facts, Symbol Cancellation, Confrontational Naming, Clock Drawing, Story Retelling, Symbol Trails, Generative Naming, Design Memory, Mazes and Design Generation. All subtests are timed. There were two areas in which -----'s score was at a moderate deficit. Those were Memory and his Clock Drawing. The other areas scored at a mild impairment level. A criterion referenced table was used to determine if ----- ----'s scores and performance were within expected norms for his age. -------- scored MILD cognitive impairment for the following cognitive domains: Attention, Executive Functions, language and Visuospatial Skills. Findings/Results Language Function Mildly impaired Cognitive Function Mildly impaired Findings Across all cognitive domains listed above (6), the pt's scores were WNL (for ages 79- 89). with the exception of the Language Domain, which was mildly impaired. Within the Language domain, two subtests presented with significant difficulty with Generative Naming and design Generation subtests, both of which require good Executive Functioning skills such as which evaluates mental flexibility, productivity and a disciplined linguistic recall, strategy development, creativity, working memory and self-monitoring skills. Cognitive Communication Deficits Self-awareness of Cognitive- Limited awareness (minimal Communication Deficits appreciation without specificity) Impact on Functioning Activity Limits/Particip.Rest. Mild: General Tasks and Demands Household Tasks Interpersonal Interactions Mod: Community Safety Risks Mild: Being Left Alone at Home Traveling Alone in Community Mod: Reacting to Emergency Managing Medication Prognosis Prognosis Good Based on Family support Plan of Care Speech-Language Treatment No Frequency 1x/week Patient/Caregiver Education Described results of evaluation,Patient expressed understanding of evaluation, Family/caregivers expressed understanding of evaluation, Patient requires further education/training,Family/ caregivers require further education/training Short Term Goals 1) Recommend Cognitive Therapy weekly to assist Marcus and his family to develop compensatory strategies and exercises to improve cognitive flexibility. 2) Recommend that Marcus take driving test before driving a car. Heating And Ventilating Worker Goals Strategies will be developed for memory, organization and planning with Marcus and his family. He will successfully use these strategies daily as reported by pt and his family
--- NOTE | 2022-04-19 13:15 | ST.OPPOC ---
Physical, Occupational & Speech Therapy At [facility] Visit Care Team Role Provider Type Sanford Kramer MD Attending Provider Physician Family Provider Primary Care Provider Referring Provider Address: [address] [place] [address], [id number] Speech Pathology Plan of Care Plan of Care Dates 04/18/22-07/19/[address] Kramer Patient History Pt was accompanied by his Nathaly. Pt and reported that pt has history of cerebrovascular event considered ischemic presenting with a TIA on 12/15/2021, with right- sided weakness and a seizure with aphasia, apparently resolved by the time of ER visit. He was reported as recovering completely except for some bruising that occurred when he fell at the time while gardening. He was given TPA IV at [facility] ER and transferred and hospitalized overnight at [facility] in [place]. With a normal brain MRI 12/17/2021, he wasdischarged home. The cerebrovascular accident has left no sequelae but pt's notices he seems to be a little more forgetful. Short Term Goals 1) Recommend Cognitive Therapy weekly to assist Marcus and his family to develop compensatory strategies and exercises to improve cognitive flexibility. 2) Recommend that Marcus take driving test before driving a car. Watch Technician Goals Strategies will be developed for memory, organization and planning with Marcus and his family. He will successfully use these strategies daily as reported by pt and his family Comment: Electronically Signed by: PARUL Enrique 04/19/22 0268 If you are in agreement with this Plan of Care, please return a signed and dated copy. I have reviewed this Plan of Care and certify that the skilled therapy services above are required to meet the patient?s needs. Physician Signature Date Printed Name and Credentials Clinical Instructor Signature Printed Name and Credentials
--- NOTE | 2022-04-24 17:13 | ST.OPDS ---
Visit Care Team Role Provider Type Sanford Kramer MD Attending Provider Physician Family Provider Primary Care Provider Referring Provider Address: [address] [place] [address], [id number] PATHOLOGY TECH Treatment Note PATHOLOGY TECH Treatment Note Start: 04/19/22 11:01 Freq: Status: Active Protocol: Document 04/24/22 16:55 LNK (Rec: 04/24/22 17:11 LNK [id number]) Speech Pathology Treatment Note Session Time Visit Start Time 13:30 Visit Stop Time 14:30 Total Visit Minutes 60 Visit Information Visit Number 2 Plan of Care Dates 04/18/22-07/19/22 Setting Treatment Setting Outpatient Care Visit Type Note Type Treatment Note Next Note Type Next Note Type Discharge Summary General Information Patient History Pt was accompanied by his Nathaly. Pt and reported that pt has history of cerebrovascular event considered ischemic presenting with a TIA on 12/15/2021, with right-sided weakness and a seizure with aphasia, apparently resolved by the time of ER visit. He was reported as recovering completely except for some bruising that occurred when he fell at the time while gardening. He was given TPA IV at [facility] ER and transferred and hospitalized overnight at [facility] in [place]. With a normal brain MRI 12/17/2021, he was discharged home. The cerebrovascular accident has left no sequelae but pt's notices he seems to be a little more forgetful. Subjective Identification Type Name,Date of Others Present Family Additional Areas of Concern Memory Patient Knowledge/Awareness of PATHOLOGY TECH Role Excellent in Treatment Patient/Caregiver Compliance with Home Excellent Exercise Program Objective Short Term Goals 1) Recommend Cognitive Therapy weekly to assist Marcus and his family to develop compensatory strategies and exercises to improve cognitive flexibility. 2) Recommend that Marcus take driving test before driving a car. Half-Way Goals Strategies will be developed for memory, organization and planning with Marcus and his family. He will successfully use these strategies daily as reported by pt and his family Treatment Activities Reviewed the CLQT+ with the pt and his , explaining the results of the sub-tests, the criteria references and the overall results. Pt was pleased to hear that his results were WNL with the exception of his language domain, which eas mildly problematic. Reviewed pt's 's concern with the pt's memory. Pt reported that he found a white board at his home and will use it to aid his memory. Strategies were described and reviewed with the pt. Uses of technology to assist memory were also presented. Written information listing the above was provided to the pt and his . Pt and both felt that they wanted to try the strategies at [facility] before trying therapy. Given the results of the assessment, this PATHOLOGY TECH is in agreement with their plan. They were encouraged to contact their physician if they notice any decline in the pt's overall status. Th pt was discharged from therapy to [facility]. Assessment Patient Response to Treatment Excellent Rehab Potential Excellent Impairment comment memory - working and short term Reviewed with Patient Home Exercise Program Patient/Caregiver Understanding Excellent Plan Amount of Therapy Recommended No Further Therapy Frequency of Treatment No Further Therapy Provided Patient/Caregiver Instruction Home Exercise Program, Questions/Concerns Therapy Recommendations Recommended Exercises/ Activities,Discharge from Speech Therapy
== END 2022-06-14 09:45 ==
LOC: SP 13:30
PROVIDERS: Family Provider Internal Medicine; PCP Internal Medicine; Referring Provider Internal Medicine; Visit Provider Internal Medicine
DX: R41.3 Other amnesia (principal); R47.9 Unspecified speech disturbances; I63.9 Cerebral infarction, unspecified
CPT/HCPCS: 96125; 97129; 97130

== ENCOUNTER → 2022-10-22 10:37 | Outpatient (CLI) | payer MEDICARE, OTHER, SELFPAY ==
[2021-12-15 15:29] VITALS: PULSE 51; RESP 18; O2SAT 100
[2022-10-22 14:14] LABS: COVID19 -Nasal RAPID Negative (Negative)
== END ==
PROVIDERS: Family Provider Internal Medicine; PCP Internal Medicine; Visit Provider Surgery
DX: Z20.822 Contact with and (suspected) exposure to COVID-19 (principal); Z01.812 Encounter for preprocedural laboratory examination
CPT/HCPCS: 87635; C9803

== ENCOUNTER 2022-10-23 06:38 | Day surgery (SDC) | payer MEDICARE, OTHER, SELFPAY ==
[2021-12-15 15:29] VITALS: PULSE 51; RESP 18; O2SAT 100
[2022-10-23] VITALS (16 sets, daily range): BP systolic 129–262; BP diastolic 46–79; PULSE 51–71; RESP 11–25; TEMP 36–36.3; O2SAT 94–99; BMI 27.4
--- NOTE | 2022-10-23 07:37 | SUR.OPER ---
Supine on pink padded OR bed, head on pillow, arms padded and tucked at sides, legs uncrossed, safety belt at thigh, tape over blanket over lower legs .
[2022-10-23] MEDS: LACTATED RINGERS 1,000 ML 42 ML IV (07:44)
--- NOTE | 2022-10-23 07:47 | P.HP_ITS ---
History of Present Illness History of Present Illness Date Patient Seen: 10/23/22 Time Patient Seen: 07:30 Chief complaint: [facility] Narrative: Mr. Greco is here today for a hernia repair for a recurrent incisional hernia at the epigastric region from previous port site. He was seen in my office in August and reports no changes in his health since then. Is hernia continues to be troublesome bothersome and painful. 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) Medicare annual wellness visit, initial Microalbuminuria Mixed hyperlipidemia Mumps Neoplasm, bladder Obstructive sleep apnea of adult (~2009) 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) Prostate cancer (~2009) Repeated falls Scoliosis Seizure Spinal stenosis Venous insufficiency Surgical History Anesthesia History of ankle surgery History of bladder surgery (08/04/19) History of colon surgery History of surgery History of uvulopalatopharyngoplasty (~2000) Hx of appendectomy Hx of cataract surgery Hx of cystoscopy Hx of hernia repair (06/06/20) Hx of toe surgery Hx of vasectomy Status post biopsy of thyroid gland Family & Social History Family History Father Heart disease Gallstones Cancer Mother Cancer Grandfather Heart disease Social History: household members spouse lives independently Yes caregiver/support person No Tobacco & Substance use: Smoking Status Never smoker alcohol intake current alcohol intake frequency holiday/special occasion Substance Use Type does not use Meds Home Medications and Allergies Home Medications Medication Instructions Recorded Confirmed Type latanoprost 0.005 % eye drops 1 drp OPHTH HS ##0 02/12/11 10/23/22 History (Xalatan) alfuzosin 10 mg tablet,extended 10 mg PO BEDTIME ##0 11/09/11 10/23/22 History release 24 hr (Uroxatral) aspirin 81 mg tablet,delayed 81 mg PO DAILY 07/23/18 10/23/22 History release fluticasone propionate 50 2 spray intranasal DAILY 07/23/18 10/23/22 History mcg/actuation nasal spray,suspension loratadine 10 mg tablet 10 mg PO DAILY 07/23/18 10/23/22 History Respironics Dreamstation CPAP #1 ea 03/25/19 09/19/22 History cholecalciferol (vitamin D3) 25 25 mcg PO BID 05/31/20 10/23/22 History mcg (1,000 unit) capsule rosuvastatin 5 mg tablet 5 mg PO DAILY 01/15/22 10/23/22 History psyllium husk 3.4 gram/5.4 gram 1 tbsp PO DAILY 04/11/22 10/22/22 History oral powder (Metamucil) sodium chloride, sodium ea .Route 04/11/22 09/19/22 History bicarb-nasal rinse squeeze bottle with packet (Neilmed Sinus Rinse Complete with packet) lisinopril 40 mg tablet 40 mg PO BEDTIME #90 tabs 08/20/22 10/23/22 Rx oxycodone 5 mg tablet 5 mg PO Q6H PRN pain #20 tabs 10/23/22 Rx Allergies Allergy/AdvReac Type Severity Reaction Status Date / Time bimatoprost Allergy Mild SWELLING Verified 10/23/22 07:28 AT EYES cephalexin [CEPHALEXIN] Allergy Mild RASH Verified 10/23/22 07:28 scopolamine Allergy Mild BLURRED Verified 10/23/22 07:28 VISION, DISORIENTED Exam Vital Signs (past 8 hours): - 10/23/22 07:37 Temperature 97.4 F L Pulse Rate 51 L Respiratory Rate 16 Blood Pressure 176/79 H Pulse Oximetry 99 Oxygen Delivery Method Room Air Oxygen Delivery Method Room Air Const General: cooperative, healthy appearing and comfortable [facility] Head: normal to inspection Resp Effort & Inspection: normal respiratory effort and able to speak in complete sentences Cardio Pulses: radial pulses present GI Palpation: soft, hernia (Palpable epigastric hernia just caudal to the site of a previous incision.) and No tender Assessment & Plan Assessment and plan (1) Recurrent incisional hernia: Status: Acute Assessment & Plan narrative: I discussed risks benefits and alternatives of laparoscopic and open repair. I have obtained Mr. Greco's informed consent to proceed with a laparoscopic possible open repair of this area. Understands the risks include but are not limited to bleeding infection recurrence injury to organs requiring additional surgery to repair, stroke heart attack blood clots. He would like to proceed. Time Spent With Patient Critical Care time: I spent a total of [] minutes of critical care time on this patient's care today; this time is exclusive of procedural time.
[2022-10-23] MEDS: CEFAZOLIN 2 GM/100 ML PREMIX 100 ML IV (07:55)
[2022-10-23] MEDS: BUPIVACAINE 0.5% W/ EPI (PF) 30 ML VIAL INJ (08:29)
--- NOTE | 2022-10-23 10:14 | PM.OP.1 ---
Procedure & Clinicians Procedure: Laparoscopic incisional recurrent hernia repair Same procedure as scheduled: Yes Indications: Mr. Greco presented to my office with symptomatic problems with a hernia protruding from what on exam appeared to be just inferior to a previously repaired incisional hernia. I discussed the risks benefits and alternatives of open versus incisional repair and Mr. Greco understanding risks agreed to proceed Surgeon: Miri Cobb Click Yes if Unassisted: Yes Anesthesia Type: General Operative Notes Findings: There was a hernia in the epigastric area, which had some omentum incarcerated within it. Evidence of a previous repair as well as sutures were seen cephalad to this. Additionally there were some scattered adhesions in the right upper quadrant and right lateral. The defect was measured at 2 cm in diameter. Specimen(s): none sent Prosthetic devices, grafts, tissues, transplants, or devices: A 8 cm Ventralex mesh was used. Procedure in detail: Patient was taken to the operating room and placed supine on the operating room table. Preoperative antibiotics were administered and bilateral SCDs were in place. General endotracheal anesthesia was induced. A time-out was performed. The abdomen was prepped and draped in the usual sterile fashion with the arms tucked. Next local anesthetic was used to infused just about at McBurney's point in the right lower quadrant. An open technique was used to incise the skin carry the incision down through the subcutaneous tissues anterior rectus sheath, split the muscles and enter the abdomen posteriorly under direct visualization. A Ayana trocar was introduced into the abdomen and the abdomen was insufflated. The laparoscope was inserted and there was no evidence of entry injury. Two 5 mm additional trocars were then placed under direct visualization. One just above the umbilicus and 1 laterally. Laparoscopic graspers were used to gently reduce the hernia contents. It was omentum and transverse colon attached below but was not touched by any instrument. The defect was measured by comparing it to the laparoscopic instrument and then measuring the instrument. The defect was 2 cm in diameter. The hernia sac was left in place. A 8 cm Ventralex mesh was prepared by placing sutures of 0 Prolene in all 4 quadrants. It was introduced to the abdomen through the 12 mm port. Next small stab wounds were created around the defect and a [place] device was used to grab the sutures and create a transabdominal tacking suture. This was repeated in all 4 quadrants. I decreased the insulfaltion pressure to 10 mmHg. When I went to tie the very 1st of the tacking sutures, I broke the suture. I then placed a another Prolene suture into the abdomen and placed it through the ring of the ventralex mesh laparoscopically. I then used the [place] device to create another full thickness suture tack in that location, and tied all 4 sutures down. I inspected the area and placed local anesthesia around each of the stab points. I removed the accessory trocars under direct visualization. I desufflated the abdomen and removed the Ayana trocar. A previously placed 0 Vicryl suture in the anterior rectus sheath was closed and an additional 0 Prolene was placed in this defect as well. The skin was closed with Monocryl and dressed with Steri-Strips. Patient tolerated the procedure well and went in good condition to the postoperative care unit. There were no complications and the EBL was minimal Complications: none Post-operative Disposition: PACU
--- NOTE | 2022-10-23 10:41 | SUR.PHASEI ---
Lower midline puncture and laterally to left stab incisions are oozing. soaked [address] Cobb aware, went to start another case. 4x4's and tape applied to slow oozing. Pt. comfortable, drinking fluids.
--- NOTE | 2022-10-23 11:00 | SUR.PHASEI ---
continues to ooze from stab incisions. MD unavailable, ABD binder applied with fresh 4x4's and tape. awaiting MD to see patient before transfer.
--- NOTE | 2022-10-23 11:15 | SUR.PHASEI ---
Dr. hood at bedside. dressings changed, new steri strips applied. gauze, tegaderm applied. abd binder back on.
[2022-10-23] MEDS: OXYCODONE/ACETAMINOPHEN 5/325 TABLET 1 TAB PO (11:37)
--- NOTE | 2022-10-23 12:02 | SUR.PHASEII ---
Pt with lap sites intact. Left lateral site with sanguinous output. Not saturated. Newly dressed wounds from PACU still in place. along with abdominal binder. Pt has pain 4/10.
== END 2022-10-23 12:03 | disposition home or self-care (01) ==
PROVIDERS: Family Provider Internal Medicine; PCP Internal Medicine; Referring Provider Surgery; Visit Provider Surgery
PROC: (CPT 49613; principal; 2022-10-23 07:45)
DX: K43.2 Incisional hernia without obstruction or gangrene (principal)
CPT/HCPCS: 49613; 71045; 80053; 82550; 82553; 83690; 83735; 84484; 85025; 85610; 85730; 93005; 99285; J0330; J0690; J1100; J2704; J3010

== ENCOUNTER 2022-10-23 21:40 | Observation (INO) | payer MEDICARE, OTHER, SELFPAY ==
[2021-12-15 15:29] VITALS: PULSE 51; RESP 18; O2SAT 100
[2022-10-23 21:50] VITALS: BP 114/65; PULSE 64; RESP 16; TEMP 36.4; O2SAT 95; BMI 27.2
--- NOTE | 2022-10-23 21:55 | DI.RAD.S_ITS ---
PROCEDURE: XR CHEST 1V INDICATIONS: chest pain TECHNIQUE: One view of the chest was acquired. COMPARISON: [facility], CR, XR CHEST 1V, 12/15/2021, 13:10. FINDINGS: Surgical changes and devices: None. Lungs and pleura: There are low lung volumes with probable mild linear atelectasis in the left lung base. No definite focal consolidation. No pleural effusions or pneumothorax. Mediastinum: Mediastinal contours appear normal. Heart size is normal. Bones and chest wall: No suspicious bony lesions. Overlying soft tissues appear unremarkable. IMPRESSION: 1. Low lung volumes with probable left basilar atelectasis. No definite acute cardiopulmonary disease. Dictated by: Ryan Lomax M.D. on 10/23/2022 at 23:13 Approved by: Ryan Lomax M.D. on 10/23/2022 at 23:14
[2022-10-23 21:58] VITALS: PULSE 66; RESP 23; O2SAT 98
[2022-10-23 22:00] VITALS: BP 117/66; PULSE 63; RESP 24; RESP 25; O2SAT 98
[2022-10-23 22:21] LABS: Add Manual Diff / Slide Review NO; Basophils Absolute Auto 0 /uL (0-100); Basophils Percent Auto 0.2 % (0-2); Eosinophils Absolute Auto 0 /uL (0-450); Eosinophils Percent Auto 0.1 % (2-4); Hematocrit 40.3 % (41-53); Hemoglobin 13.5 g/dL (13.5-17.5); Lymphocytes Absolute Auto 1400 /uL (1100-4500); Lymphocytes Percent Auto 9.8 % (25-40); Mean Corpuscular HGB Conc 33.5 % (30-36); Mean Corpuscular Hemoglobin 32.1 PG (26-34); Mean Corpuscular Volume 95.6 fL (80-100); Monocytes Absolute Auto 1300 /uL (0-900); Monocytes Percent Auto 9.1 % (3-14); Neutrophils Absolute Auto 11300 /uL (1500-7000); Neutrophils Percent Auto 80.8 % (50-75); Platelet Count 240 X10^3/uL (150-400); Red Blood Cell Count 4.22 X10^6/uL (4.5-5.9); Red Cell Distribution Width 12.7 % (11.6-14.8)
[2022-10-23 22:26] LABS: Prothrombin Time 11.9 SECONDS (10.1-12.7)
[2022-10-23 22:28] LABS: PTT Partial Thromboplastin Tim 24 SECONDS (26-36)
[2022-10-23 22:30] VITALS: BP 117/55; PULSE 65; RESP 24; O2SAT 98
[2022-10-23 22:30] LABS: Alanine Aminotransferase 23 IU/L (<50); Alkaline Phosphatase 69 U/L (38-126); Aspartate Aminotransferase 30 IU/L (17-59); BUN Creatinine Ratio 24.6 (6-22); Blood Urea Nitrogen 16 mg/dL (9-20); Calcium 8.8 mg/dL (8.4-10.2); Carbon Dioxide 26 mmol/L (22-32); Chloride 97 mmol/L (98-107); Creatine Kinase 296 U/L (55-170); Estimated Glomerular Filt Rate > 60 mL/min (>60); Glucose 155 mg/dL (80-110); HEMOLYSIS < 15 (0-50); Lipase 70 U/L (23-300); Magnesium 1.7 mg/dL (1.6-2.3); Potassium 3.9 mmol/L (3.4-5.1); Sodium 132 mmol/L (137-145); Total Protein 6.5 g/dL (6.3-8.2)
[2022-10-23 22:41] LABS: Troponin I 0.036 ng/mL (0.01-0.034)
[2022-10-23 22:45] LABS: CKMB % Relative Index 1.9 % (1.5-5.0); Creatine Kinase MB 5.66 ng/mL (<2.37)
[2022-10-23 23:00] VITALS: BP 117/55; PULSE 62; RESP 17; O2SAT 97
[2022-10-23 23:01] VITALS: BP 112/62; PULSE 61; RESP 22; O2SAT 97
[2022-10-24] VITALS (13 sets, daily range): BP systolic 124–169; BP diastolic 58–77; PULSE 59–65; RESP 16–30; O2SAT 91–99
--- NOTE | 2022-10-24 00:43 | DI.CT.S_ITS ---
PROCEDURE: CT HEAD/BRAIN WO CON INDICATIONS: Altered mental status TECHNIQUE: Noncontrast 4.5 mm thick angled axial sections acquired from the foramen magnum to the vertex, with coronal and sagittal reformats. For radiation dose reduction, the following was used: automated exposure control, adjustment of mA and/or kV according to patient size. COMPARISON: [facility], CT, CT HEAD/BRAIN WO CON, 12/15/2021, 15:19. FINDINGS: Image quality: Excellent. CSF spaces: Basal cisterns are patent. No extra-axial fluid collections. There is moderate cerebral volume loss, with resultant ventricular and sulcal prominence. Brain: No intracranial hemorrhage, mass, or mass effect. There are subcortical, periventricular and deep white matter hypodensities consistent with moderate chronic small vessel ischemic changes. The lott-white matter junction appears preserved. There is intracranial internal carotid artery atherosclerosis. Skull and face: Calvarium and visualized facial bones are intact, without suspicious lesions. Sinuses: Visualized sinuses and mastoids are clear. IMPRESSION: 1. No acute intracranial abnormality. 2. Moderate cerebral volume loss and chronic white matter small vessel ischemic changes. Dictated by: Ryan Lomax M.D. on 10/24/2022 at 1:32 Approved by: Ryan Lomax M.D. on 10/24/2022 at 1:34
--- NOTE | 2022-10-24 00:43 | DI.CT.S_ITS ---
PROCEDURE: CT ANGIO CHEST ABDOMEN PELVIS INDICATIONS: Dissection protocol/syncope TECHNIQUE: Precontrast 5 mm thick sections acquired from the lung apices to the iliac crests. After the administration of intravenous contrast, 2.5 mm thick sections again acquired from the lung apices to the iliac crests. Maximum intensity projection (MIP) oblique sagittal and coronal reformats were then acquired. For radiation dose reduction, the following was used: automated exposure control. COMPARISON: None. FINDINGS: Image quality: Excellent. AORTA: Noncontrast images demonstrate no evidence of intramural hematoma. The aorta is normal in caliber and contour without intimal flaps to suggest dissection. There is conventional branching of the aortic arch. The visualized great vessels are normal in caliber and appear patent. The celiac, superior mesenteric, and inferior mesenteric arteries are patent. There are single renal arteries bilaterally which also appear patent. The common, external, and internal iliac arteries appear patent. The common femoral and visualized proximal superficial femoral arteries appear patent. CHEST: Lower Neck: No lymphadenopathy by size criteria. Thyroid: Visualized thyroid demonstrates a few small nodules within the left lobe measuring up to 0.8 cm. Axillae: No lymphadenopathy by size criteria. Chest Wall: Unremarkable. Lungs and Airways: No acute consolidation. There is mild dependent atelectasis and scarring within the lung bases. There are few scattered small pulmonary nodules including a left lower lobe nodule measuring up to 0.5 cm on series 4, image 183 and a a left lower lobe subpleural 0.3 cm nodule on series 4, image 177. The trachea and central airways are patent. Pleura: No pneumothorax or pleural effusions. Heart: Heart size is mildly enlarged. No pericardial effusion. Thoracic Vessels: The pulmonary arteries are normal in size and demonstrate no filling defects to suggest central pulmonary embolism. Mediastinum and Shu: No lymphadenopathy by size criteria. Esophagus: No wall thickening. There is a small hiatal hernia. ABDOMEN: Liver: No mass lesion. Gallbladder: Within normal limits without calcified gallstones. Biliary ducts: No biliary ductal dilatation. Pancreas: Unremarkable. Spleen: Normal in size. Adrenal Glands: No adrenal nodules. Kidneys and Ureters: No hydronephrosis. There are bilateral renal cysts. Stomach and Bowel: Stomach, small bowel loops, and colon are normal in caliber and wall thickness. Peritoneum: There is a small to moderate amount of hyperdense intraperitoneal free fluid. This includes a lobulated dense collection along the left anterior abdominal wall and in the left paracolic gutter. Small amount of perihepatic fluid is also demonstrated extending inferiorly within the right paracolic gutter. A small amount of free fluid is also demonstrated in the pelvis. The findings are consistent with hemoperitoneum, likely related to recent surgery. No evidence of active arterial extravasation. There are few scattered small foci of free air within the left abdomen consistent with sequelae of recent surgery. Ventral Wall: There is a small midline ventral abdominal hernia containing a short segment small bowel. No evidence of associated bowel obstruction or definite strangulation. There is edema and gas within the right rectus abdominus muscle consistent with sequelae of recent surgery. Abdominal Nodes: No retroperitoneal or mesenteric adenopathy by size criteria. Vessels: Aorta and inferior vena cava are normal in size. PELVIS: Pelvic Organs: Unremarkable. Bladder: Unremarkable. Pelvic Nodes: No enlarged lymph nodes. Miscellaneous: No inguinal hernias are seen. Bones: Visualized osseous structures demonstrate no suspicious focal lesions. IMPRESSION: 1. No evidence of aortic aneurysm or dissection. 2. No evidence of central pulmonary embolism. 3. Small to moderate amount of hemoperitoneum in the abdomen and pelvis including a lobulated dense collection along the left anterolateral abdominal wall likely reflecting the source of hemorrhage. No evidence of active arterial extravasation identified. Findings reported to Dr. Liriano on 10/24/2022 at 1:49 a.m.. Dictated by: Ryan Lomax M.D. on 10/24/2022 at 1:36 Approved by: Ryan Lomax M.D. on 10/24/2022 at 2:01
--- NOTE | 2022-10-24 00:45 | ED_ITS ---
HPI - Syncope General Chief Complaint: Syncope Stated Complaint: Syncope Time Seen by Provider: 10/24/22 00:28 Source: EMS Mode of arrival: EMS History of Present Illness HPI narrative: Patient here with family. Here for near-syncope/tremors/seizure-like activity/diaphoresis/dizziness. Patient discharged this morning from this facility after elective laparoscopic incisional recurrent hernia repair. Has been doing well with his abdominal pain after the surgery. Today when he got home there was an episode when he was in the bathroom and got very diaphoretic and dizzy. Denied any chest pain or palpitations. Tonight at the dinner table had an episode where he had seizure-like activity but he remembers everything no loss of consciousness. He had a hard time speaking when this happened. No headache no chest pain no back pain. Patient was tremulous dizzy and diaphoretic. Symptoms have resolved now. No history of seizures in the past. No history of cardiac disease or stroke. Symptoms have now resolved Fast exam is negative Related Data Home Medications Medication Instructions Recorded Confirmed latanoprost 0.005 % eye drops 1 drp [facility] ##0 02/12/11 10/24/22 (Xalatan) alfuzosin 10 mg tablet,extended 10 mg PO BEDTIME ##0 11/09/11 10/24/22 release 24 hr (Uroxatral) fluticasone propionate 50 2 spray intranasal DAILY 07/23/18 10/24/22 mcg/actuation nasal spray,suspension loratadine 10 mg tablet 10 mg PO DAILY 07/23/18 10/24/22 Respironics Dreamstation CPAP #1 ea 03/25/19 09/19/22 cholecalciferol (vitamin D3) 25 25 mcg PO BID 05/31/20 10/24/22 mcg (1,000 unit) capsule rosuvastatin 5 mg tablet 5 mg PO DAILY 01/15/22 10/24/22 psyllium husk 3.4 gram/5.4 gram 1 tbsp PO DAILY 04/11/22 10/24/22 oral powder (Metamucil) sodium chloride, sodium ea DAILY 04/11/22 09/19/22 bicarb-nasal rinse squeeze bottle with packet (Neilmed Sinus Rinse Complete with packet) Previous Rx's Medication Instructions Recorded lisinopril 40 mg tablet 40 mg PO BEDTIME #90 tabs 08/20/22 acetaminophen 500 mg tablet 500 mg PO Q6H #30 tabs 10/23/22 (Acetaminophen Extra Strength) docusate sodium 100 mg capsule 100 mg PO DAILY #30 caps 10/23/22 (Colace) oxycodone 5 mg tablet 5 mg PO Q6H PRN pain #20 tabs 10/23/22 Allergies Allergy/AdvReac Type Severity Reaction Status Date / Time bimatoprost Allergy Mild SWELLING Verified 10/23/22 21:54 AT EYES cephalexin [CEPHALEXIN] Allergy Mild RASH Verified 10/23/22 21:54 scopolamine Allergy Mild BLURRED Verified 10/23/22 21:54 VISION, DISORIENTED Review of Systems Review of Systems Narrative: GENERAL: negative chills, fatigue, malaise, fever, positive sweats. HEENT: negative sinus pain, ear pain, sore throat RESPIRATORY: negative dyspnea, cough CARDIOVASCULAR: negative chest pain, palpitations GASTROINTESTINAL: negative nausea, vomiting, abdominal pain : negative dysuria, frequency, hematuria MUSCULOSKELETAL: negative muscle or bony pain SKIN: negative rash, skin lesions NEUROLOGIC: negative weakness, positive dizziness, positive aphasia, positive tremors ROS Unobtainable: All systems reviewed & are unremarkable except as noted in HPI and below Patient History Medical History Allergic rhinitis (~1944) Ankle pain (~2019) Bilateral leg edema Bladder cancer (~2006) BPH (benign prostatic hyperplasia) (~1997) BPH w urinary obs/LUTS Cataracts, bilateral Cerebrovascular disease Chicken pox Colon polyps Do not resuscitate Erectile dysfunction Essential hypertension Fractures GERD (gastroesophageal reflux disease) Glaucoma (~2000) Hearing loss (~2008) Hemorrhoid (~1957) History of elevated PSA (~2009) HTN (hypertension) Incisional hernia of anterior abdominal wall without obstruction or gangrene 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) Medicare annual wellness visit, initial Microalbuminuria Mixed hyperlipidemia Mumps Neoplasm, bladder Obstructive sleep apnea of adult (~2009) 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) Prostate cancer (~2009) Repeated falls Scoliosis Seizure Spinal stenosis Venous insufficiency Surgical History Anesthesia History of ankle surgery History of bladder surgery (08/04/19) History of colon surgery History of surgery History of uvulopalatopharyngoplasty (~2000) Hx of appendectomy Hx of cataract surgery Hx of cystoscopy Hx of hernia repair (06/06/20) Hx of toe surgery Hx of vasectomy Status post biopsy of thyroid gland Family History Father Heart disease Gallstones Cancer Mother Cancer Grandfather Heart disease Social History marital status: details: hugo Andersen, lives in [place], [place] household members: spouse lives independently: Yes caregiver/support person: No Smoking Status: Never smoker alcohol intake: current substance use type: does not use Smoking Status: Never smoker alcohol intake frequency: holidays/special occasions only Substance Use Type: does not use Exam Narrative Exam Narrative: GENERAL: in no distress, not toxic not dyspneic HEAD: Normocephalic. EYES: Pupils equal round No scleral icterus. ENT: Mucous membranes moist. NECK: Trachea midline. CARDIOVASCULAR: Regular rate and rhythm without murmurs RESPIRATORY: Clear to auscultation. Breath sounds equal bilaterally. No wheezes, rales, or rhonchi. GASTROINTESTINAL: Abdomen soft, non-tender EXTREMITIES: No gross deformities. BACK: No flank tenderness. NEURO: AOx4. Clear speech no facial droop light touch intact bilateral face hands and legs. 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 Negative pronator drift SKIN: Warm and dry PSYCH: Not anxious, is cooperative Initial Vital Signs Initial Vital Signs: Vital Signs Temperature 97.6 F 10/23/22 21:50 Pulse Rate 64 10/23/22 21:50 Respiratory Rate 16 10/23/22 21:50 Blood Pressure 114/65 10/23/22 21:50 Pulse Oximetry 95 10/23/22 21:50 Oxygen Delivery Method 10/23/22 21:50 Scores NIH Stroke Scale Level of Conciousness: Alert, keenly responsive Ask month/age: Answers both questions correctly. Open/close eyes, close hand: Performs both tasks correctly Best gaze horizontal: Normal Visual yap: No visual loss Facial palsy: Normal symetrical movement Left arm drift: No drift for full 10 sec Right arm drift: No drift for full 10 sec Left leg drift: No drift for full 5 sec Right leg drift: No drift for full 5 sec Limb ataxia: Absent Sensory on face/arms/legs: Normal, no sensory loss Best language: No aphasia, normal Dysarthria: Normal Extinction or inattention: No abnormality Total NIH Stroke scale score: 0 Course Orders Ordered: Discontinued Medications Acetaminophen (Acetaminophen 325 Mg Tablet) 650 mg PO Q6H PRN PRN Reason: Fever/Mild Pain (1-3) Atorvastatin Calcium (Atorvastatin 20 Mg Tablet) 80 mg PO BEDTIME NATO Sodium Chloride (Normal Saline 0.9%) 500 mls @ 1,000 mls/hr IV BOLUS ONE Stop: 10/24/22 01:12 Last Infusion: 10/24/22 02:02 Dose: 0 mls/hr Documented By: Admin: 10/24/22 00:50 Dose: 1,000 mls/hr Documented By: DEVON Oxycodone HCl (Oxycodone Ir 5 Mg Tablet) 5 mg PO Q6H PRN PRN Reason: pain Pantoprazole Sodium (Pantoprazole 40 Mg Vial) 40 mg IV NOW ONE Stop: 10/24/22 01:34 Last Admin: 10/24/22 01:36 Dose: 40 mg Documented By: DEVON Vital Signs Vital signs: Vital Signs - 8 hr 10/23/22 21:50 10/23/22 21:58 10/23/22 22:00 Temperature 97.6 F Pulse Rate 64 66 Respiratory Rate 16 23 Blood Pressure 114/65 117/66 Pulse Oximetry 95 98 Oxygen Delivery Method Room Air 10/23/22 22:00 10/23/22 22:30 10/23/22 22:30 Temperature Pulse Rate 63 65 Respiratory Rate 25 H 24 Blood Pressure 117/55 L Pulse Oximetry 98 98 Oxygen Delivery Method 10/23/22 23:00 10/23/22 23:01 10/23/22 23:01 Temperature Pulse Rate 62 61 Respiratory Rate 17 22 Blood Pressure 112/62 Pulse Oximetry 97 97 Oxygen Delivery Method 10/23/22 22:00 10/23/22 23:00 10/24/22 00:00 Temperature Pulse Rate 63 62 Respiratory Rate 24 27 H Blood Pressure 117/66 117/55 L 124/66 Pulse Oximetry 98 97 Oxygen Delivery Method Room Air 10/24/22 00:30 10/24/22 02:00 Temperature Pulse Rate 62 65 Respiratory Rate 25 H 16 Blood Pressure 157/68 H 150/70 H Pulse Oximetry 98 96 Oxygen Delivery Method MDM - Syncope Differential Diagnosis Differential diagnosis: Likely subarachnoid hemorrhage, pulmonary embolism, dehydration and other (Dissection/TIA/stroke/medication reaction/dehydration) Lab Data Result diagrams: 10/24/22 10:06 10/24/22 10:06 Labs: Lab Results 10/23/22 10/23/22 10/23/22 Range/Units 21:40 21:40 21:40 WBC 14.0 H (4.5-11.0) X10^3/uL RBC 4.22 L (4.5-5.9) X10^6/uL Hgb 13.5 (13.5-17.5) g/dL Hct 40.3 L (41-53) % MCV 95.6 (80-100) fL MCH 32.1 (26-34) PG MCHC 33.5 (30-36) % RDW 12.7 (11.6-14.8) % Plt Count 240 (150-400) X10^3/uL Neut % (Auto) 80.8 H (50-75) % Lymph % (Auto) 9.8 L (25-40) % Chaves % (Auto) 9.1 (3-14) % Eos % (Auto) 0.1 L (2-4) % Baso % (Auto) 0.2 (0-2) % Neut # (Auto) 93602 H (0717-4182) /uL Lymph # (Auto) 1400 (0147-9260) /uL Chaves # (Auto) 1300 H (0-900) /uL Eos # (Auto) 0 (0-450) /uL Baso # (Auto) 0 (0-100) /uL PT 11.9 (10.1-12.7) SECONDS INR 1.0 (0.9-1.3) APTT 24 L (26-36) SECONDS Sodium 132 L (137-145) mmol/L Potassium 3.9 (3.4-5.1) mmol/L Chloride 97 L (98-107) mmol/L Carbon Dioxide 26 (22-32) mmol/L BUN 16 (9-20) mg/dL Creatinine 0.65 L (0.66-1.25) mg/dL Estimated GFR > 60 (>60) mL/min BUN/Creatinine Ratio 24.6 H (6-22) Glucose 155 H (80-110) mg/dL Calcium 8.8 (8.4-10.2) mg/dL Magnesium 1.7 (1.6-2.3) mg/dL Total Bilirubin 1.0 (0.2-1.3) mg/dL AST 30 (17-59) IU/L ALT 23 (<50) IU/L Alkaline Phosphatase 69 (38-126) U/L Total Creatine Kinase 296 H (55-170) U/L CK-MB (CK-2) 5.66 H (<2.37) ng/mL CK-MB (CK-2) Rel Index 1.9 (1.5-5.0) % Troponin I 0.036 H (0.01-0.034) ng/mL Total Protein 6.5 (6.3-8.2) g/dL Lipase 70 (23-300) U/L 10/24/22 Range/Units 00:40 WBC (4.5-11.0) X10^3/uL RBC (4.5-5.9) X10^6/uL Hgb (13.5-17.5) g/dL Hct (41-53) % MCV (80-100) fL MCH (26-34) PG MCHC (30-36) % RDW (11.6-14.8) % Plt Count (150-400) X10^3/uL Neut % (Auto) (50-75) % Lymph % (Auto) (25-40) % Chaves % (Auto) (3-14) % Eos % (Auto) (2-4) % Baso % (Auto) (0-2) % Neut # (Auto) (0912-8027) /uL Lymph # (Auto) (9865-1101) /uL Chaves # (Auto) (0-900) /uL Eos # (Auto) (0-450) /uL Baso # (Auto) (0-100) /uL PT (10.1-12.7) SECONDS INR (0.9-1.3) APTT (26-36) SECONDS Sodium (137-145) mmol/L Potassium (3.4-5.1) mmol/L Chloride (98-107) mmol/L Carbon Dioxide (22-32) mmol/L BUN (9-20) mg/dL Creatinine (0.66-1.25) mg/dL Estimated GFR (>60) mL/min BUN/Creatinine Ratio (6-22) Glucose (80-110) mg/dL Calcium (8.4-10.2) mg/dL Magnesium (1.6-2.3) mg/dL Total Bilirubin (0.2-1.3) mg/dL AST (17-59) IU/L ALT (<50) IU/L Alkaline Phosphatase (38-126) U/L Total Creatine Kinase 286 H (55-170) U/L CK-MB (CK-2) 5.02 H (<2.37) ng/mL CK-MB (CK-2) Rel Index 1.8 (1.5-5.0) % Troponin I 0.038 H (0.01-0.034) ng/mL Total Protein (6.3-8.2) g/dL Lipase (23-300) U/L Imaging Data Chest x-ray: Radiologist's Impression: [address] [address] XRay Report Signed Patient: Vasiliy Greco MR#: [id number] : 1935 Acct:[id number] Age/Sex: 86 / M Date of Service: 10/23/22 Loc: ED Accession Number: [id number] ?? Procedure: XR chest 1V Ordering Provider: Husam Liriano MD PROCEDURE:? XR CHEST 1V ? INDICATIONS:? chest pain ? TECHNIQUE:? One view of the chest was acquired.? ? COMPARISON:? [facility], CR, XR CHEST 1V, 12/15/2021, 13:10. ? FINDINGS:? ? Surgical changes and devices:? None.? ? Lungs and pleura:? There are low lung volumes with probable mild linear atelectasis in the left lung base.? No definite focal consolidation.? No pleural effusions or pneumothorax.? ? Mediastinum:? Mediastinal contours appear normal.? Heart size is normal.? ? Bones and chest wall:? No suspicious bony lesions.? Overlying soft tissues appear unremarkable.? ? IMPRESSION:? ? 1. Low lung volumes with probable left basilar atelectasis.? No definite acute cardiopulmonary disease. ? ? Dictated by: Ryan Lomax M.D. on 10/23/2022 at 23:13 ? ? Approved by: Ryan Lomax M.D. on 10/23/2022 at 23:14 ? CT scan - head: Radiologist's Impression: [address] [address] [address] Scan Report Signed Patient: Vasiliy Greco JR MR#: [id number] : 1935 Acct:[id number] Age/Sex: 86 / M Date of Service: 10/24/22 Loc: ED Accession Number: [id number] ?? Procedure: CT head/brain wo con Ordering Provider: Husam Liriano MD PROCEDURE:? CT HEAD/BRAIN WO CON ? INDICATIONS:? Altered mental status ? TECHNIQUE:? Noncontrast 4.5 mm thick angled axial sections acquired from the foramen magnum to the vertex, with coronal and sagittal reformats.? For radiation dose reduction, the following was used:? automated exposure control, adjustment of mA and/or kV according to patient size.? ? COMPARISON:? [facility], CT, CT HEAD/BRAIN WO CON, 12/15/2021, 15:19. ? FINDINGS:? Image quality:? Excellent.? ? CSF spaces:? Basal cisterns are patent.? No extra-axial fluid collections.? There is moderate cerebral volume loss, with resultant ventricular and sulcal prominence.? ? Brain:? No intracranial hemorrhage, mass, or mass effect.? There are subcortical, periventricular and deep white matter hypodensities consistent with moderate chronic small vessel ischemic changes.? The lott-white matter junction appears preserved.? There is intracranial internal carotid artery atherosclerosis.? ? Skull and face:? Calvarium and visualized facial bones are intact, without suspicious lesions.? ? Sinuses:? Visualized sinuses and mastoids are clear.? ? IMPRESSION:? ? 1. No acute intracranial abnormality. ? 2. Moderate cerebral volume loss and chronic white matter small vessel ischemic changes.? Dictated by: Ryan Lomax M.D. on 10/24/2022 at 1:32 ? ? Approved by: Ryan Lomax M.D. on 10/24/2022 at 1:34 ? CT angiogram chest abdomen and pelvis: Radiologist's Impression: [address] [address] [address] Scan Report Signed Patient: Vasiliy Greco JR MR#: [id number] : 1935 Acct:[id number] Age/Sex: 86 / M Date of Service: 10/24/22 Loc: ED Accession Number: [id number] ?? Procedure: CT angio chest abdomen pelvis Ordering Provider: Husam Liriano MD PROCEDURE:? CT ANGIO CHEST ABDOMEN PELVIS ? INDICATIONS:? Dissection protocol/syncope ? TECHNIQUE:? Precontrast 5 mm thick sections acquired from the lung apices to the iliac crests.? After the administration of intravenous contrast, 2.5 mm thick sections again acquired from the lung apices to the iliac crests.? Maximum intensity projection (MIP) oblique sagittal and coronal reformats were then acquired.? For radiation dose reduction, the following was used:? automated exposure control.? ? COMPARISON:? None. ? FINDINGS:? Image quality:? Excellent.? ? AORTA:? Noncontrast images demonstrate no evidence of intramural hematoma.? The aorta is normal in caliber and contour without intimal flaps to suggest dissection.? T here is conventional branching of the aortic arch.? The visualized great vessels are normal in caliber and appear patent.? The celiac, superior mesenteric, and inferior mesenteric arteries are patent.? There are single renal arteries bilaterally which also appear patent.? The common, external, and internal iliac arteries appear patent.? The common femoral and visualized proximal superficial femoral arteries appear patent. ? CHEST:? Lower Neck: No lymphadenopathy by size criteria. Thyroid:? Visualized thyroid demonstrates a few small nodules within the left lobe measuring up to 0.8 cm. Axillae: No lymphadenopathy by size criteria. Chest Wall:? Unremarkable.? ? Lungs and Airways:? No acute consolidation.? There is mild dependent atelectasis and scarring within the lung bases.? There are few scattered small pulmonary nodules including a left lower lobe nodule measuring up to 0.5 cm on series 4, image 183 and a a left lower lobe subpleural 0.3 cm nodule on series 4, image 177.? The trachea and central airways are patent. Pleura: No pneumothorax or pleural effusions.? ? Heart: Heart size is mildly enlarged.? No pericardial effusion. Thoracic Vessels:? The pulmonary arteries are normal in size and demonstrate no filling defects to suggest central pulmonary embolism. Mediastinum and Shu: No lymphadenopathy by size criteria. Esophagus: No wall thickening.? There is a small hiatal hernia. ? ABDOMEN: Liver:? No mass lesion. Gallbladder:? Within normal limits without calcified gallstones.? ? Biliary ducts:? No biliary ductal dilatation.? ? Pancreas:? Unremarkable.? ? Spleen:? Normal in size.? ? Adrenal Glands:? No adrenal nodules.? ? Kidneys and Ureters:? No hydronephrosis.? There are bilateral renal cysts. ? ? Stomach and Bowel:? Stomach, small bowel loops, and colon are normal in caliber and wall thickness.? Peritoneum:? There is a small to moderate amount of hyperdense intraperitoneal free fluid.? This includes a lobulated dense collection along the left anterior abdominal wall and in the left paracolic gutter.? Small amount of perihepatic fluid is also demonstrated extending inferiorly within the right paracolic gutter.? A small amount of free fluid is also demonstrated in the pelvis.? The findings are consistent with hemoperitoneum, likely related to recent surgery.? No evidence of active arterial extravasation.? There are few scattered small foci of free air within the left abdomen consistent with sequelae of recent surgery. ? Ventral Wall: ? There is a small midline ventral abdominal hernia containing a short segment small bowel.? No evidence of associated bowel obstruction or definite strangulation.? There is edema and gas within the right rectus abdominus muscle consistent with sequelae of recent surgery. Abdominal Nodes:? No retroperitoneal or mesenteric adenopathy by size criteria.? Vessels:? Aorta and inferior vena cava are normal in size.? ? PELVIS: Pelvic Organs:? Unremarkable.? ? Bladder:? Unremarkable.? ? Pelvic Nodes: No enlarged lymph nodes.? Miscellaneous: No inguinal hernias are seen. ? ? ? Bones:? Visualized osseous structures demonstrate no suspicious focal lesions. ? IMPRESSION:? ? 1. No evidence of aortic aneurysm or dissection. ? 2. No evidence of central pulmonary embolism. ? 3. Small to moderate amount of hemoperitoneum in the abdomen and pelvis including a lobulated dense collection along the left anterolateral abdominal wall likely reflecting the source of hemorrhage.? No evidence of active arterial extravasation iden tified. ? Findings reported to Dr. Liriano on 10/24/2022 at 1:49 a.m.. ? ? ? Dictated by: Ryan Lomax M.D. on 10/24/2022 at 1:36 ? ? Approved by: Ryan Lomax M.D. on 10/24/2022 at 2:01 ? ECG Data Interpretation: Normal sinus rhythm rate [address] elevation or depression MDM Narrative Medical decision making narrative: Patient here with family. Here for near-syncope/tremors/seizure-like activity/diaphoresis/dizziness. Patient discharged this morning from this facility after elective laparoscopic incisional recurrent hernia repair. Has been doing well with his abdominal pain after the surgery. Today when he got home there was an episode when he was in the bathroom and got very diaphoretic and dizzy. Denied any chest pain or palpitations. Tonight at the dinner table had an episode where he had seizure-like activity but he remembers everything no loss of consciousness. He had difficulty speaking. No headache no chest pain no back pain. Patient was tremulous dizzy and diaphoretic. Symptoms have resolved now. No history of seizures in the past. No history of cardiac disease or stroke. Patient is DNR but elects for full treatment otherwise. POLST form is provided CBC EKG CMP troponin chest x-ray CT head CT angiogram chest abdomen pelvis ordered. IV fluids for renal clearance. [facility] CC: ?Near-syncope ? Complicating co-morbidities: ?Recent surgery this morning ? Data collected from: Patient and family ? Medical records reviewed: ?Laparoscopic surgery this morning ? Differential considered: ?Includes but not limited to VT/dissection/PE/stroke/TIA/seizure/medication reaction ? Exam documented above, pertinent findings include: Appropriately healing abdominal incision wounds. Dressing removed. ? Lab Test results independently reviewed as above. Pertinent findings: Elevated troponin 0.03. Leukocytosis 14,000 ? Independently reviewed EKG as above ? Imaging studies independently reviewed: CT head/CT angiogram chest abdomen pelvis/chest x-ray, no acute findings ? Consultations: 2:50 a.m. Spoke with hospitalist,, dr garcia, will admit ? Treatments: IV fluids for renal clearance for angiogram ? Re-evaluations: I did review results with patient and family. They do agree for admit. This is atypical for his response after surgeries. ? Discussion: Appropriate for admission. Patient require balance or workup for altered mental status which includes echocardiogram and MRI. I did review with patient and family and hospitalist and agree for treatment plan. Findings and CT scan of abdomen and pelvis likely postsurgical changes from surgery earlier yesterday. Troponin nonspecific. Slightly higher above upper limits. However no chest pain. ? Diagnosis: Altered mental status ? Disposition: Admit Discharge Plan Departure Patient Disposition: Admitted as Observation Clinical Impression: Altered mental status Admit Date/Time: 10/24/22 02:51 Admit Provider: Maninder Garcia
[2022-10-24] MEDS: SODIUM CHLORIDE 0.9% 500 ML 1000 ML IV (00:50)
[2022-10-24 00:57] LABS: Creatine Kinase 286 U/L (55-170)
[2022-10-24 01:10] LABS: Troponin I 0.038 ng/mL (0.01-0.034)
[2022-10-24 01:13] LABS: CKMB % Relative Index 1.8 % (1.5-5.0); Creatine Kinase MB 5.02 ng/mL (<2.37)
[2022-10-24] MEDS: PANTOPRAZOLE 40 MG VIAL IV (01:36)
--- NOTE | 2022-10-24 02:52 | PC.NURSE ---
CHANGE MANAGEMENT MANAGER note: Patient's family left their phone numbers in case we needed them. Nupur, daughter: [phone] Nathaly, : [phone]
--- NOTE | 2022-10-24 03:34 | DI.MRI.S_ITS ---
PROCEDURE: MR STROKE Pre- and post-contrast brain MRI, non-contrast brain MR angiogram, pre- and postcontrast neck MR angiogram INDICATIONS: tia? TECHNIQUE: Brain: Noncontrast axial T1 spin echo, axial T2 fast spin echo, sagittal and axial FLAIR, coronal T2 fast spin echo, axial gradient echo, axial diffusion and ADC through the brain. After the administration of contrast, axial 3D VIBE of the cranial vasculature and brain. Brain MRA: Non-contrast 3-D time of flight MR angiogram, with multiple savignb-tahwlqpkc-jknrlubhxj (MIP) reformats performed. Neck MRA: Axial and sagittal TruFISP through the neck. Coronal dynamic MR angiogram during administration of contrast in the arterial and venous phases, with 3-dimenstional peupjhw-kovbodpbf-holjrxgasb (MIP) reformats constructed from subtraction images. COMPARISON: [facility], MR, BRAIN (IAC) W AND WO CONTRAST, 11/21/2011, 9:22. [facility], CT, CT HEAD/BRAIN WO CON, 12/15/2021, 15:19. [facility], CT, CT HEAD/BRAIN WO CON, 10/24/2022, 0:58. (A prior head and neck CT angiogram is not available from the archive at the time of this dictation.) FINDINGS: Image quality: This examination is limited by involuntary motion artifact. BRAIN: CSF spaces: Ventricles are normal in size and shape. Basal cisterns are patent. No extra-axial fluid collections. Brain: No intracranial bleeds or mass effects. Ramirez-white matter interface is normal. Diffusion weighted images show no acute ischemic insults. Brainstem appears normal. Normal intravascular flow voids are present. No abnormal intracranial enhancement. Note is made of age-appropriate brain parenchymal volume loss and chronic small vessel ischemic changes. Skull and face: Calvarial marrow signal is normal. Orbits appear normal. Note is made of bilateral lens replacements. Sinuses: Sinuses and mastoids are clear. BRAIN MR ANGIOGRAM: Anterior circulation: Intracranial internal carotid arteries are normal in size and enhancement. There is a hypoplastic right A1 segment, with a corresponding robust left A1 segment. This is considered to be a normal developmental variant of the [place] of [place], of typically no clinical consequence. The flow within the paired anterior cerebral arteries is otherwise normal and symmetric. The flow within the middle cerebral arteries is normal and symmetric. The anterior communicating artery is seen. No stenoses, occlusions, or aneurysms. Posterior circulation: The visualized portions of the vertebral arteries demonstrate normal caliber, and join to form a normal appearing basilar artery. The flow within the posterior cerebral arteries is normal and symmetric. No stenoses, occlusions, or aneurysms. NECK MR ANGIOGRAM: Carotids: Great vessels demonstrate a conventional anatomy as they arise from the aortic arch. The origins of the common carotid arteries appear patent. The calibers and courses of both common carotid arteries are normal. The bifurcation regions appear normal bilaterally. The internal carotid arteries demonstrate normal course and caliber. Posterior circulation: The origins of the vertebral arteries appear patent. More superior portions of both vertebral arteries demonstrate normal course and caliber, and join to form a normal appearing basilar artery. Miscellaneous: Subclavian arteries appear patent. Pre-contrast images through the neck show no soft tissue abnormalities. IMPRESSION: BRAIN MRI: No findings of acute or subacute infarction can be seen. No masses or abnormal enhancement can be seen. Note is made of age-appropriate brain parenchymal volume loss and chronic small vessel ischemic changes. BRAIN MR ANGIOGRAM: No significant intracranial arterial abnormality is seen. Hypoplastic right A1 segment noted. NECK MR ANGIOGRAM: Within the arteries of the neck, no hemodynamically significant stenosis can be seen. Dictated by: Steve Dennis M.D. on 10/24/2022 at 9:08 Approved by: Steve Dennis M.D. on 10/24/2022 at 9:14
--- NOTE | 2022-10-24 06:07 | PM.HP.1 ---
History of Present Illness History of Present Illness Date Patient Seen: 10/24/22 Time Patient Seen: 05:30 Chief complaint: Syncope Narrative: Mr. Greco is an 86M with PMH HTN, BPH, VIKTOR who presents to the hospital with dizziness. The story initially relayed to me from the ED physician was that patient was noted to have two episodes of difficulty with speaking, and also with diaphoresis. The patient when relaying story to me is clear that he felt quite dizzy like he was going to pass out. He did get surgery to repair a hernia earlier today, and had not eaten normally in preparation for this. He had no fevers/chills, no lateralizing weakness. Per nursing triage note patient was hypotensive when EMS arrived with blood pressure in the 60s, and had taken hydrocodone for pain after surgery. In the ED, workup was done, vitals notable for afebrile, blood pressure 114/65, heart rate in the 60s. NIH 0. Labs notable for WBC 14, Na 132, creatinine 0.65. Trop 0.038. CT head with no acute process. CTA chest, abdomen, pelvis shows hemoperitoneum in setting of surgery earlier today. He received IV fluids. When I saw him he felt back to normal. He was admitted for further treatment. 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 (~2009) Medicare annual wellness visit, initial Microalbuminuria Mixed hyperlipidemia Mumps Neoplasm, bladder Obstructive sleep apnea of adult (~2009) 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) Prostate cancer (~2009) Repeated falls Scoliosis Seizure Spinal stenosis Venous insufficiency Surgical History Anesthesia History of ankle surgery History of bladder surgery (08/04/19) History of colon surgery History of surgery History of uvulopalatopharyngoplasty (~2000) Hx of appendectomy Hx of cataract surgery Hx of cystoscopy Hx of hernia repair (06/06/20) Hx of toe surgery Hx of vasectomy Status post biopsy of thyroid gland Family & Social History Family History Father Heart disease Gallstones Cancer Mother Cancer Grandfather Heart disease Social History: household members spouse lives independently Yes caregiver/support person No Safety & Behavioral: Feels Safe in Current Yes Environment Been Physically Hurt or No Threatened By a Person Tobacco & Substance use: Smoking Status Never smoker alcohol intake current alcohol intake frequency holiday/special occasion Substance Use Type does not use Meds Home Medications and Allergies Home Medications Medication Instructions Recorded Confirmed Type latanoprost 0.005 % eye drops 1 drp OPHTH HS ##0 02/12/11 10/23/22 History (Xalatan) alfuzosin 10 mg tablet,extended 10 mg PO BEDTIME ##0 11/09/11 10/23/22 History release 24 hr (Uroxatral) aspirin 81 mg tablet,delayed 81 mg PO DAILY 07/23/18 10/23/22 History release fluticasone propionate 50 2 spray intranasal DAILY 07/23/18 10/23/22 History mcg/actuation nasal spray,suspension loratadine 10 mg tablet 10 mg PO DAILY 07/23/18 10/23/22 History Respironics Dreamstation CPAP #1 ea 03/25/19 09/19/22 History cholecalciferol (vitamin D3) 25 25 mcg PO BID 05/31/20 10/23/22 History mcg (1,000 unit) capsule rosuvastatin 5 mg tablet 5 mg PO DAILY 01/15/22 10/23/22 History psyllium husk 3.4 gram/5.4 gram 1 tbsp PO DAILY 04/11/22 10/22/22 History oral powder (Metamucil) sodium chloride, sodium ea .Route 04/11/22 09/19/22 History bicarb-nasal rinse squeeze bottle with packet (Neilmed Sinus Rinse Complete with packet) lisinopril 40 mg tablet 40 mg PO BEDTIME #90 tabs 08/20/22 10/23/22 Rx acetaminophen 500 mg tablet 500 mg PO Q6H #30 tabs 10/23/22 Rx (Acetaminophen Extra Strength) docusate sodium 100 mg capsule 100 mg PO DAILY #30 caps 10/23/22 Rx (Colace) ibuprofen 600 mg tablet 600 mg PO Q6H #30 tabs 10/23/22 Rx oxycodone 5 mg tablet 5 mg PO Q6H PRN pain #20 tabs 10/23/22 Rx Allergies Allergy/AdvReac Type Severity Reaction Status Date / Time bimatoprost Allergy Mild SWELLING Verified 10/23/22 21:54 AT EYES cephalexin [CEPHALEXIN] Allergy Mild RASH Verified 10/23/22 21:54 scopolamine Allergy Mild BLURRED Verified 10/23/22 21:54 VISION, DISORIENTED Review of Systems Review of Systems Narrative: 14 systems reviewed and negative Exam Vital Signs (past 8 hours): - 10/23/22 22:30 10/23/22 22:30 10/23/22 23:00 Pulse Rate 65 62 Respiratory Rate 24 17 Blood Pressure 117/55 L Pulse Oximetry 98 97 Oxygen Delivery Method 10/23/22 23:01 10/23/22 23:01 10/23/22 23:00 Pulse Rate 61 Respiratory Rate 22 Blood Pressure 112/62 117/55 L Pulse Oximetry 97 Oxygen Delivery Method 10/24/22 00:00 10/24/22 00:30 10/24/22 02:00 Pulse Rate 62 62 65 Respiratory Rate 27 H 25 H 16 Blood Pressure 124/66 157/68 H 150/70 H Pulse Oximetry 97 98 96 Oxygen Delivery Method Room Air Oxygen Delivery Method Room Air Narrative Exam Narrative: GEN: no acute distress HEENT: moist mucous membranes, PERRL NECK: trachea midline, no JVD PULM: clear bilaterally, no wheezes, rhonchi, rales CV: regular rate and rhythm, no murmurs ABD: soft, nontender, nontender, nondistended, no organomegaly, normal bowel sounds EXT: warm and well perfused, with no edema NEURO: awake, alert, oriented, no focal deficits Objective Labs Result Diagrams: 10/23/22 21:40 10/23/22 21:40 Labs: Laboratory Results - last 24 hr 10/23/22 10/23/22 10/23/22 21:40 21:40 21:40 WBC 14.0 H RBC 4.22 L Hgb 13.5 Hct 40.3 L MCV 95.6 MCH 32.1 MCHC 33.5 RDW 12.7 Plt Count 240 Neut % (Auto) 80.8 H Lymph % (Auto) 9.8 L [place] % (Auto) 9.1 Eos % (Auto) 0.1 L Baso % (Auto) 0.2 Neut # (Auto) 11184 H Lymph # (Auto) 1400 [place] # (Auto) 1300 H Eos # (Auto) 0 Baso # (Auto) 0 PT 11.9 INR 1.0 APTT 24 L Sodium 132 L Potassium 3.9 Chloride 97 L Carbon Dioxide 26 BUN 16 Creatinine 0.65 L Estimated GFR > 60 BUN/Creatinine Ratio 24.6 H Glucose 155 H Calcium 8.8 Magnesium 1.7 Total Bilirubin 1.0 AST 30 ALT 23 Alkaline Phosphatase 69 Total Creatine Kinase 296 H CK-MB (CK-2) 5.66 H CK-MB (CK-2) Rel Index 1.9 Troponin I 0.036 H Total Protein 6.5 Lipase 70 10/24/22 00:40 WBC RBC Hgb Hct MCV MCH MCHC RDW Plt Count Neut % (Auto) Lymph % (Auto) [place] % (Auto) Eos % (Auto) Baso % (Auto) Neut # (Auto) Lymph # (Auto) [place] # (Auto) Eos # (Auto) Baso # (Auto) PT INR APTT Sodium Potassium Chloride Carbon Dioxide BUN Creatinine Estimated GFR BUN/Creatinine Ratio Glucose Calcium Magnesium Total Bilirubin AST ALT Alkaline Phosphatase Total Creatine Kinase 286 H CK-MB (CK-2) 5.02 H CK-MB (CK-2) Rel Index 1.8 Troponin I 0.038 H Total Protein Lipase Assessment & Plan Assessment & Plan narrative: 1. Dizziness -he is s/p ventral hernia repair -initially concern for possible stroke, CT head negative -with more history, sounds as if patient had symptomatic hypotension -suspect secondary to surgery, decreased oral intake because NPO, and medications -check MRI and ECHO -NIH q4h -hold aspirin for now, ordered statin -PT/OT ordered, speech therapy ordered -did get IV fluids in the ED -check orthostatics today 2. Hypertension -hold home BP medications 3. VIKTOR -home CPAP ordered 4. BPH -hold home medications 5. Cardiac demand ischemia -troponin mildly elevated, no chest pain -suspect secondary to surgery, and hypotension -restart aspirin on discharge 6. Leukocytosis -suspect secondary to surgery -no fever noted by patient -CT abdomen shows mild to moderate hemoperitoneum, which ED physician discussed with radiology and per that discussion is expected post-operatively I have reviewed the plan of care with the ED physician, and indepedently reviewed available labs and CT head and CTA chest, abdomen, pelvis. CODE: DNR Proxy: sobia Dominguez Time Spent With Patient Critical Care time: I spent a total of [] minutes of critical care time on this patient's care today; this time is exclusive of procedural time. Quality [facility] - Meds 'Current medications' to include all prescriptions, [id number] products, herbals, cannabis/cannabidiol products, and vitamin/mineral/dietary (nutritional) supplements. I have utilized all available resources to obtain, update, or review the patient?s current medications. [If Yes, STOP here]: Yes
--- NOTE | 2022-10-24 09:42 | DI.ECHO.S_ITS ---
Version: 1 Study ID: [id number] [place] [address] Name: TA NUNN JR Study Date: 10/24/2022, 10: 58 AM : 1935 BP: 157 / 68 mmHg Gender: Male Height: 66 in Age: 86 Years Weight: 169 lb BSA: 1.86 mA? Ordering: AUGUSTO MARSH Referring: AUGUSTO MARSH Clinician: Lily Glass Reason For Study: TIA History: Summary Statements Normal sinus rhythm. Normal LV size and mild concentric left ventricular hypertrophy. There is subtle distal septal hypokinesis. Otherwise normal wall motion. Normal left ventricular systolic function. Ejection fraction is 60-65%. Mild left atrial enlargement. Otherwise normal chamber sizes. No significant valvular abnormalities. Estimated PA systolic pressure is 36 mm Hg assuming RA pressure of 3 mm Hg. No source of embolism found. No prior study available for comparison. Procedure: A two-dimensional transthoracic echocardiogram with color flow and Doppler was performed. The study quality was technically adequate. There is no prior echocardiogram noted for this patient. The patient was in sinus rhythm with heart rates between 55-65 bpm during the exam. Left Ventricle: The ejection fraction is estimated to be 55-60%. The left ventricular cavity is small. There is mild concentric left ventricular hypertrophy. Right Ventricle: The right ventricle is normal in size and function. Atria: There is no Doppler evidence for an interatrial shunt. The left atrium is mildly dilated. Right atrial size is normal. Mitral Valve: There is trace mitral regurgitation. The mitral valve leaflets appear mildly thickened, but open well. Aortic Valve: There is trace aortic regurgitation. There is no aortic valve stenosis. The aortic valve is not well visualized. Tricuspid Valve: There is mild tricuspid regurgitation. The right ventricular systolic pressure is estimated to be at least 36 mmHg based on an estimated right atrial pressure of 3 mm Hg. The tricuspid valve is normal in structure and function. Pulmonic Valve: There is no pulmonic valvular regurgitation. The pulmonic valve is not well visualized. Great Vessels: The ascending aorta could not be visualized. The aortic root is normal size. The IVC is of normal diameter and collapses greater than 50% with a sniff. This suggests a low right atrial pressure of 3 mm Hg. Pericardium/ Pleura: There is no pericardial effusion. There is no pleural effusion. 2D and M-Mode Measurements and Calculations LVIDd: 3.5 cm LVOT diam: 2.16 cm LVIDs: 2.36 cm Ao root diam: 3.4 cm IVSd: 1.22 cm LVPWd: 1.12 cm LV gerardo. diameter/BSA (cm/m^2): 1.90 LV sys. diameter/BSA (cm/m^2): 1.27 RVD1 (basal): 3.5 cm RVD2 (mid): 2.5 cm TAPSE: 2.9 cm LA A4 area: 17.9 certified pharmacy tech? IVC diam: 1.69 cm LA A2 area: 27.5 certified pharmacy tech? RA area: 17.5 certified pharmacy tech? LA length (vol): 5.1 cm RA long axis: 5.5 cm LA vol: 81.1 ml RA vol: 47.8 ml LA vol index: 43.6 ml/mA? RA : 25.7 ml/mA? Doppler Measurements and Calculations Ao V2 max: 130.5 cm/sec LVOT Max Terence: 97.2 cm/sec Ao V2 mean: 88.5 cm/sec LV V1 max P.8 mmHg Ao V2 VTI: 30.7 cm LV V1 VTI: 23.4 cm Ao max P.8 mmHg SV(LVOT): 86.0 ml Ao mean P.7 mmHg KATJA(I,D): 2.8 certified pharmacy tech? KATJA(V,D): 2.7 certified pharmacy tech? KATJA indexed to BSA (cm^2/m^2): 1.51 sev ratio: 0.76 MV E max terence: 53.5 cm/sec MV dec time: 0.29 sec MV A max terence: 54.8 cm/sec MV E/A: 0.98 Med Peak E' Terence: 4.1 cm/sec Lat Peak E' Terence: 7.1 cm/sec E/e' average: 10.2 TR max terence: 286.5 cm/sec PA mean P.10 mmHg TR max P.8 mmHg PA V2 max: 96.5 cm/sec Meera Otoole M.D. Electronically signed by: Meera Otoole M.D. 10/24/2022, 12: 44 PM
[2022-10-24 10:25] LABS: Hemoglobin A1C% w Est Avg Glu 4.9 % (4.0-6.0)
[2022-10-24 10:27] LABS: Add Manual Diff / Slide Review NO; Basophils Absolute Auto 0 /uL (0-100); Basophils Percent Auto 0.5 % (0-2); Eosinophils Absolute Auto 100 /uL (0-450); Eosinophils Percent Auto 1.1 % (2-4); Hematocrit 31.1 % (41-53); Hemoglobin 10.6 g/dL (13.5-17.5); Lymphocytes Absolute Auto 900 /uL (1100-4500); Lymphocytes Percent Auto 11.8 % (25-40); Mean Corpuscular HGB Conc 34.2 % (30-36); Mean Corpuscular Hemoglobin 32.8 PG (26-34); Monocytes Absolute Auto 1000 /uL (0-900); Monocytes Percent Auto 12.2 % (3-14); Neutrophils Absolute Auto 5900 /uL (1500-7000); Neutrophils Percent Auto 74.4 % (50-75); Platelet Count 158 X10^3/uL (150-400); Red Blood Cell Count 3.24 X10^6/uL (4.5-5.9); Red Cell Distribution Width 12.5 % (11.6-14.8); White Blood Cell Count 7.9 X10^3/uL (4.5-11.0)
[2022-10-24 10:33] LABS: BUN Creatinine Ratio 26.3 (6-22); Blood Urea Nitrogen 15 mg/dL (9-20); Calcium 8.4 mg/dL (8.4-10.2); Carbon Dioxide 29 mmol/L (22-32); Chloride 100 mmol/L (98-107); Estimated Glomerular Filt Rate > 60 mL/min (>60); Glucose 90 mg/dL (80-110); HEMOLYSIS < 15 (0-50); Sodium 133 mmol/L (137-145)
--- NOTE | 2022-10-24 12:02 | SLP.IPNOTE ---
Order received. Reviewed records, MRI/CT results which appear to indicate no cranial deficits. Spoke with nursing and MD who reported that pt is swallowing and communicating without difficulty. No ST indicated. Will complete the order. MD in agreement.
--- NOTE | 2022-10-24 13:19 | P.DS_ITS ---
History of Present Illness History of Present Illness Chief complaint: Syncope Narrative: Mr. Greco is an 86M with PMH HTN, BPH, VIKTOR who presents to the hospital with dizziness. The story initially relayed to me from the ED physician was that patient was noted to have two episodes of difficulty with speaking, and also with diaphoresis. The patient when relaying story to me is clear that he felt quite dizzy like he was going to pass out. He did get surgery to repair a hernia earlier today, and had not eaten normally in preparation for this. He had no fevers/chills, no lateralizing weakness. Per nursing triage note patient was hypotensive when EMS arrived with blood pressure in the 60s, and had taken hydr ocodone for pain after surgery. In the ED, workup was done, vitals notable for afebrile, blood pressure 114/65, heart rate in the 60s. NIH 0. Labs notable for WBC 14, Na 132, creatinine 0.65. Trop 0.038. CT head with no acute process. CTA chest, abdomen, pelvis shows hemoperitoneum in setting of surgery earlier today. He received IV fluids. When I saw him he felt back to normal. He was admitted for further treatment. Discharge Providers Provider Date of admission: 10/24/22 02:51 Discharge Date: 10/24/22 Primary care physician: Sanford Kramer MD Consults: 10/24/22 09:42 Consult to Occupational Therapy Evaluate & Treat Comment: Physician Instructions: Evaluate and treat Consult to Physical Therapy Evaluate & Treat Comment: Physician Instructions: Evaluate and Treat Consult to Speech Therapy Evaluate & Treat Comment: Physician Instructions: Evaluate and treat Discharge provider: Maninder Robles MD Summary Hospital Course Discharge Diagnosis: 1. Dizziness 2. Hypertension 3. VIKTOR 4. BPH 5. Cardiac demand ischemia Hospital Course: Mr. Greco came in to the hospital with positional dizziness. He felt worse when standing. His symptoms resolved quickly, prior to the hospital he did have brief hypotension. He received fluids in the hospital and had no symptoms, and no further episodes of hypotension. It was thought this was secondary to surgery earlier in the day, some expected blood loss, and eating/drinking less than normal. He also took opiates prior to this occurring which may have exacerbated his symptoms while hypovolemic. He had MRI done which showed no stroke. He had CT abdomen which showed some fluid that was expected post operatively. He is scheduled for follow up with surgery and should follow up with his PCP in the next two weeks. Exam Vital Signs (past 8 hours): - 10/24/22 07:00 10/24/22 09:52 10/24/22 10:00 Pulse Rate 60 60 59 L Respiratory Rate 20 23 26 H Blood Pressure 128/58 L Pulse Oximetry 95 99 99 Oxygen Delivery Method Room Air Room Air 10/24/22 10:30 10/24/22 11:00 10/24/22 11:30 Pulse Rate 61 63 60 Respiratory Rate 21 20 22 Blood Pressure Pulse Oximetry 99 99 91 Oxygen Delivery Method 10/24/22 11:59 10/24/22 11:59 10/24/22 12:00 Pulse Rate 62 60 Respiratory Rate 19 30 H Blood Pressure 169/77 H Pulse Oximetry 98 99 Oxygen Delivery Method Room Air 10/24/22 12:30 10/24/22 12:39 Pulse Rate 65 Respiratory Rate 30 H Blood Pressure 153/72 H Pulse Oximetry 95 Oxygen Delivery Method Oxygen Delivery Method Room Air Narrative Exam Narrative: GEN: no acute distress HEENT: moist mucous membranes, PERRL NECK: trachea midline, no JVD PULM: clear bilaterally, no wheezes, rhonchi, rales CV: regular rate and rhythm, no murmurs ABD: soft, nontender, nontender, nondistended, no organomegaly, normal bowel sounds EXT: warm and well perfused, with no edema NEURO: awake, alert, oriented, no focal deficits Objective Labs Result Diagrams: 10/24/22 10:06 10/24/22 10:06 Labs: Laboratory Results - last 24 hr 10/23/22 10/23/22 10/23/22 21:40 21:40 21:40 WBC 14.0 H RBC 4.22 L Hgb 13.5 Hct 40.3 L MCV 95.6 MCH 32.1 MCHC 33.5 RDW 12.7 Plt Count 240 Neut % (Auto) 80.8 H Lymph % (Auto) 9.8 L [place] % (Auto) 9.1 Eos % (Auto) 0.1 L Baso % (Auto) 0.2 Neut # (Auto) 27269 H Lymph # (Auto) 1400 [place] # (Auto) 1300 H Eos # (Auto) 0 Baso # (Auto) 0 PT 11.9 INR 1.0 APTT 24 L Sodium 132 L Potassium 3.9 Chloride 97 L Carbon Dioxide 26 BUN 16 Creatinine 0.65 L Estimated GFR > 60 BUN/Creatinine Ratio 24.6 H Glucose 155 H Hemoglobin A1c Calcium 8.8 Magnesium 1.7 Total Bilirubin 1.0 AST 30 ALT 23 Alkaline Phosphatase 69 Total Creatine Kinase 296 H CK-MB (CK-2) 5.66 H CK-MB (CK-2) Rel Index 1.9 Troponin I 0.036 H Total Protein 6.5 Lipase 70 10/24/22 10/24/22 10/24/22 00:40 10:06 10:06 WBC 7.9 RBC 3.24 L Hgb 10.6 L Hct 31.1 L MCV 96.0 MCH 32.8 MCHC 34.2 RDW 12.5 Plt Count 158 Neut % (Auto) 74.4 Lymph % (Auto) 11.8 L [place] % (Auto) 12.2 Eos % (Auto) 1.1 L Baso % (Auto) 0.5 Neut # (Auto) 5900 Lymph # (Auto) 900 L [place] # (Auto) 1000 H Eos # (Auto) 100 Baso # (Auto) 0 PT INR APTT Sodium 133 L Potassium 4.0 Chloride 100 Carbon Dioxide 29 BUN 15 Creatinine 0.57 L Estimated GFR > 60 BUN/Creatinine Ratio 26.3 H Glucose 90 Hemoglobin A1c Calcium 8.4 Magnesium Total Bilirubin AST ALT Alkaline Phosphatase Total Creatine Kinase 286 H CK-MB (CK-2) 5.02 H CK-MB (CK-2) Rel Index 1.8 Troponin I 0.038 H Total Protein Lipase 10/24/22 10:06 WBC RBC Hgb Hct MCV MCH MCHC RDW Plt Count Neut % (Auto) Lymph % (Auto) [place] % (Auto) Eos % (Auto) Baso % (Auto) Neut # (Auto) Lymph # (Auto) [place] # (Auto) Eos # (Auto) Baso # (Auto) PT INR APTT Sodium Potassium Chloride Carbon Dioxide BUN Creatinine Estimated GFR BUN/Creatinine Ratio Glucose Hemoglobin A1c 4.9 Calcium Magnesium Total Bilirubin AST ALT Alkaline Phosphatase Total Creatine Kinase CK-MB (CK-2) CK-MB (CK-2) Rel Index Troponin I Total Protein Lipase [facility] Medical History Allergic rhinitis (~1945) Ankle pain (~2019) Bilateral leg edema Bladder cancer (~2006) BPH (benign prostatic hyperplasia) (~1997) BPH w urinary obs/LUTS Cataracts, bilateral Cerebrovascular disease Chicken pox Colon polyps Do not resuscitate Erectile dysfunction Essential hypertension Fractures GERD (gastroesophageal reflux disease) Glaucoma (~2000) Hearing loss (~2008) Hemorrhoid (~1957) History of elevated PSA (~2009) HTN (hypertension) Incisional hernia of anterior abdominal wall without obstruction or gangrene 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) Medicare annual wellness visit, initial Microalbuminuria Mixed hyperlipidemia Mumps Neoplasm, bladder Obstructive sleep apnea of adult (~2009) 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) Prostate cancer (~2009) Repeated falls Scoliosis Seizure Spinal stenosis Venous insufficiency Surgical History Anesthesia History of ankle surgery History of bladder surgery (08/04/19) History of colon surgery History of surgery History of uvulopalatopharyngoplasty (~2000) Hx of appendectomy Hx of cataract surgery Hx of cystoscopy Hx of hernia repair (06/06/20) Hx of toe surgery Hx of vasectomy Status post biopsy of thyroid gland Family History Father Heart disease Gallstones Cancer Mother Cancer Grandfather Heart disease Social History marital status: details: hugo Andersen, lives in [place], [place] household members: spouse lives independently: Yes caregiver/support person: No Smoking Status: Never smoker alcohol intake: current substance use type: does not use Discharge Plan Discharge Plan Patient Disposition: Home Provider Discharge Comment: Mr. Greco came in to the hospital with dizziness, he felt improved with some fluids. He was likely a little dehydrated. He had no stroke. He should follow up with his surgeon as previously scheduled. He should be careful with the oxycodone pain medication. He should hold off on taking the ibuprofen. He can restart his aspirin tomorrow 10/25. Discharge orders & Medications Prescriptions: Continued latanoprost [Xalatan] 0.005 % drops 1 drp OPHTH HS Qty: 0 alfuzosin [Uroxatral] 10 MG tablet extended release 24 hr 10 mg PO BEDTIME Qty: 0 lisinopril 40 mg tablet 40 mg PO BEDTIME Qty: 90 3RF rosuvastatin 5 mg tablet 5 mg PO DAILY cholecalciferol (vitamin D3) 25 mcg (1,000 unit) capsule 25 mcg PO BID oxycodone 5 mg tablet 5 mg PO Q6H PRN (Reason: pain) Qty: 20 0RF Rx Instructions: may take 1-2 tabs as needed for pain. May take with tylenol/advil. acetaminophen [Acetaminophen Extra Strength] 500 mg tablet 500 mg PO Q6H Qty: 30 0RF Rx Instructions: alternate with advil aka ibuprofen docusate sodium [Colace] 100 mg capsule 100 mg PO DAILY Qty: 30 0RF Rx Instructions: Take while taking oxycodone for pain to prevent constipation. Neilmed Sinus Rinse Complete Packet With Rinse Device DAILY Rx Instructions: . Metamucil 3.4 gram/5.4 gram powder 1 tbsp PO DAILY Rx Instructions: mix into at least 8 oz of water or juice before administering fluticasone propionate 50 mcg/actuation spray,suspension 2 spray NASAL DAILY loratadine 10 mg tablet 10 mg PO DAILY (DME) RespirCleanifys Dreamstation CPAP Qty: 1 Dose Instruction: As directed Label Comments: Pressure: 8-14 cmH2O DME: Medicare [place] Rx Instructions: As directed Discontinued ibuprofen 600 mg tablet 600 mg PO Q6H Qty: 30 0RF Rx Instructions: alternate with tylenol to take a pain medication dose every 3 hours while awake. aspirin 81 mg tablet,delayed release (DR/EC) 81 mg PO DAILY Label Comments: takes every 3rd day Follow up/Referrals: Sanford Kramer MD [Primary Care Provider] - 2 Weeks Diet/Activity/Treatments Diet: Regular Visit Report/Discharge Packet Stand Alone Forms: Patient Portal/API, Stroke Signs & Symptoms Discharge Data Primary Care Provider: Sanford Kramer V Attending Provider: Maninder Robles
[2022-10-26 15:56] LABS: Albumin 3.6 g/dL (3.5-5.0); Albumin Globulin Ratio 1.2 (1.0-2.8); Globulin 2.9 g/dL (1.7-4.1)
== END 2022-10-24 12:38 | disposition home or self-care (01) ==
LOC: ED 10-24 00:49 → AC 10-24 02:51
PROVIDERS: Admitting Provider Internal Medicine; Emergency Provider Emergency Medicine; Family Provider Internal Medicine; PCP Internal Medicine; Visit Provider Internal Medicine
DX: R42 Dizziness and giddiness (principal); R55 Syncope and collapse; I10 Essential (primary) hypertension; G47.33 Obstructive sleep apnea (adult) (pediatric); N40.0 Benign prostatic hyperplasia without lower urinary tract symptoms; I25.89 Other forms of chronic ischemic heart disease; D72.829 Elevated white blood cell count, unspecified; R29.700 NIHSS score 0; Z98.890 Other specified postprocedural states
CPT/HCPCS: 36415; 70450; 70548; 70553; 71045; 71275; 74174; 80048; 80053; 82550; 82553; 83036; 83690; 83735; 84484; 85025; 85610; 85730; 93005; 93306; 96361; 96374; 99285; G0378; C9113; Q9967

== ENCOUNTER → 2022-12-14 09:46 | Outpatient (CLI) | payer MEDICARE, OTHER, SELFPAY ==
[2021-12-15 15:29] VITALS: PULSE 51; RESP 18; O2SAT 100
--- NOTE | 2022-12-15 02:36 | DI.NM.S_ITS ---
DATE OF SERVICE: 12/14/2022 PROCEDURE PERFORMED: Pharmacologic vasodilator stress and rest myocardial perfusion imaging with gating to assess ejection fraction and regional wall motion. ORDERING PROVIDER: Christiana Wick MD INDICATIONS: The patient is an 87-year-old male with hypertension and pedal edema with a recent episode of near syncope. CARDIAC STRESS: Per protocol, 0.4 mg of regadenoson was infused with a normal hemodynamic response. He had mild symptoms of dyspnea but no chest discomfort. His resting ECG shows sinus rhythm with normal ST segments. There are no significant ST-segment shifts or arrhythmias with stress. Per protocol, 25.9 millicuries of technetium-99m Myoview was injected. He was imaged 20 minutes later using a gated SPECT acquisition protocol. Earlier in the day while at rest, he had been injected with 11.5 millicuries of technetium- 99m Myoview and was imaged 20 minutes later, again using a gated SPECT acquisition protocol. FINDINGS: 1. Raw data: There is fair myocardial tracer uptake but considerable motion on both the stress and rest images, particularly on the stress images, which clearly could produce significant artifact. In addition, there is subdiaphragmatic tracer activity on both the stress and rest images, more so on the stress images. The lung/heart ratio is normal at 0.24 with a normal TID ratio of 1.10. 2. Quantitated gated SPECT: Post-stress ejection fraction is estimated at 72% without any focal wall motion abnormality and specifically, the inferior wall has normal contractility. Resting ejection fraction is 63% with a resting end- diastolic volume of 118 mL. 3. Myocardial perfusion imaging: Post-stress supine images show a fairly normal myocardial perfusion pattern although with mildly reduced tracer activity at the base of the inferior wall in a pattern that would be consistent with diaphragmatic attenuation, supported by its complete resolution on the prone images, revealing a homogeneous perfusion pattern without any perfusion defects. The resting images show similar perfusion pattern although the proximal inferior defect is less prominent. IMPRESSION: 1. Probable normal myocardial perfusion study. 2. Mild, partially reversible perfusion defect at the base of the inferior wall that completely resolves on the prone images and likely due to diaphragmatic attenuation artifact, possibly accentuated by the considerable motion noted on the stress images. Given the normal perfusion imaging on the prone images, there is no evidence for any myocardial ischemia or previous myocardial infarction. 3. Normal left ventricular systolic function without any focal wall motion abnormality. 4. No angina or ECG evidence of ischemia with pharmacologic vasodilator stress. 5. Compared to the previous myocardial perfusion study of 02/12/2011, the previous ejection fraction was estimated at 71% with an end-diastolic volume of 113 mL, suggesting the absence of any significant change. The inferior defect was not evident on the previous exam. Vasiliy Greco JR - RS/chloe/norberto doc#: [id number]/job#: [id number] dd: 12/14/2022 16:40:00 dt: 12/15/2022 02:24:00 DICTATING MD/COPIES TO: Brent Fuller MD; Christiana Wick MD COPIES MNE: [place];
== END ==
PROVIDERS: Family Provider Internal Medicine; PCP Internal Medicine; Referring Provider Internal Medicine Cardiovascular Disease; Visit Provider Internal Medicine Cardiovascular Disease
DX: R55 Syncope and collapse (principal); R53.83 Other fatigue; I10 Essential (primary) hypertension; R60.0 Localized edema
CPT/HCPCS: 78452; 93017; A9502; J2785

== ENCOUNTER → 2023-01-17 09:00 | Outpatient (CLI) | payer MEDICARE, OTHER, SELFPAY ==
[2021-12-15 15:29] VITALS: PULSE 51; RESP 18; O2SAT 100
[2023-01-17 11:16] LABS: Hematocrit 42.8 % (41-53); Hemoglobin 14.7 g/dL (13.5-17.5); Mean Corpuscular HGB Conc 34.3 % (30-36); Mean Corpuscular Hemoglobin 31.5 PG (26-34); Mean Corpuscular Volume 91.8 fL (80-100); Platelet Count 179 X10^3/uL (150-400); Red Blood Cell Count 4.66 X10^6/uL (4.5-5.9); Red Cell Distribution Width 13.3 % (11.6-14.8); White Blood Cell Count 5.1 X10^3/uL (4.5-11.0)
[2023-01-17 11:42] LABS: Alanine Aminotransferase 25 IU/L (<50); Albumin 3.5 g/dL (3.5-5.0); Albumin Globulin Ratio 1.2 (1.0-2.8); Alkaline Phosphatase 68 U/L (38-126); Aspartate Aminotransferase 31 IU/L (17-59); BUN Creatinine Ratio 18.5 (6-22); Bilirubin Total 0.7 mg/dL (0.2-1.3); Blood Urea Nitrogen 10 mg/dL (9-20); Calcium 9.2 mg/dL (8.4-10.2); Carbon Dioxide 27 mmol/L (22-32); Chloride 96 mmol/L (98-107); Estimated Glomerular Filt Rate > 60 mL/min (>60); Globulin 2.9 g/dL (1.7-4.1); Glucose 87 mg/dL (80-110); HEMOLYSIS < 15 (0-50); Potassium 4.5 mmol/L (3.4-5.1); Sodium 129 mmol/L (137-145); Total Protein 6.4 g/dL (6.3-8.2)
== END ==
PROVIDERS: Family Provider Internal Medicine; PCP Internal Medicine; Referring Provider Internal Medicine; Visit Provider Internal Medicine
DX: D64.9 Anemia, unspecified (principal); I67.9 Cerebrovascular disease, unspecified
CPT/HCPCS: 36415; 80053; 85027

== ENCOUNTER → 2023-02-28 09:05 | Outpatient (CLI) | payer MEDICARE, OTHER, SELFPAY ==
[2023-01-21 15:54] VITALS: PULSE 51; RESP 18; O2SAT 100
--- NOTE | 2023-02-28 | DI.CT.S_ITS ---
PROCEDURE: CT IVP A/P W/WO INDICATIONS: FAMILY HISTORY OF BLADDER CANCER TECHNIQUE: Optional 5 mm thick noncontrast images acquired from the diaphragm to the symphysis pubis. After the administration of intravenous contrast, 5 mm thick images acquired from the diaphragm to the symphysis pubis after a 10-minute delay. 2 mm thick coronal and sagittal reformats were then performed of the kidneys and ureters. For radiation dose reduction, the following was used: automated exposure control, adjustment of mA and/or kV according to patient size. COMPARISON: None. FINDINGS: Image quality: Excellent. Lung bases: Lung bases are clear. Heart size is normal. Moderate coronary artery calcifications. Urinary system: Both kidneys are normal in size, without hydronephrosis or nephrolithiasis on pre-contrast images. No perinephric fat stranding. There is normal bilateral renal enhancement. Renal calyces appear normal in morphology when filled with contrast. Opacified portions of both ureters demonstrate normal caliber. 10.2 cm exophytic cyst off the lower pole of the right kidney. 4 cm left renal cyst. There is mild prostate enlargement. There is diffuse thickening of the wall of the bladder with some trabeculations present. No focal luminal mass identified. No calcified bladder stones. Other solid organs: Liver is normal in size and enhancement. Gallbladder is unremarkable . Biliary system is non dilated. Pancreas enhances normally. Spleen is normal in size and enhancement. No adrenal nodules. Peritoneum and bowel: Bowel loops demonstrate normal wall thickness and caliber. Remote partial colectomy. Right colonic and transverse colonic No free fluid or air. Nodes and vessels: No retroperitoneal or mesenteric adenopathy by size criteria. Aorta and inferior vena cava are normal in size. Abdominal wall: No ventral hernias. Pelvis: No pathologic free pelvic fluid. No inguinal hernias or adenopathy. Bones: No suspicious bony lesions. No vertebral body compression fractures. There is arthritis involving the pubic symphysis with a joint effusion noted. IMPRESSION: 1. No renal stones, ureteral stones, hydronephrosis, or findings suspicious for malignancy. 2. Mild prostate enlargement. 3. Diffuse bladder wall thickening with bladder trabeculations suggesting bladder outlet obstruction. 4. Incidental note made of 10 cm right renal cyst. Dictated by: Froylan Uribe M.D. on 02/28/2023 at 11:55 Approved by: Froylan Uribe M.D. on 02/28/2023 at 12:03
== END ==
PROVIDERS: Family Provider Internal Medicine; PCP Internal Medicine; Referring Provider Urology; Visit Provider Urology
DX: N40.0 Benign prostatic hyperplasia without lower urinary tract symptoms (principal); N28.1 Cyst of kidney, acquired; Z80.52 Family history of malignant neoplasm of bladder
CPT/HCPCS: 74178; Q9967

== ENCOUNTER → 2023-04-27 11:00 | Outpatient (CLI) | payer MEDICARE, OTHER, SELFPAY ==
[2023-01-21 15:54] VITALS: PULSE 51; RESP 18; O2SAT 100
--- NOTE | 2023-04-27 11:02 | DI.RAD.S_ITS ---
PROCEDURE: XR SHOULDER RT MIN 2V INDICATIONS: Fall TECHNIQUE: 3 views of the shoulder were acquired. COMPARISON: None. FINDINGS: Bones: No fractures or dislocations. No suspicious bony lesions. Visualized ribs appear intact. There are degenerative changes involving the acromioclavicular and glenohumeral joints. Coracoclavicular and acromioclavicular intervals are maintained. Soft tissues: No suspicious soft tissue calcifications. IMPRESSION: Degenerative changes of the acromioclavicular and glenohumeral joints. No acute fracture or dislocation. If there is persistent clinical concern for occult fracture given adequate mechanism of injury, consider repeat imaging in 10-14 days. Dictated by: Joni Hester M.D. on 04/27/2023 at 12:33 Approved by: Joni Hester M.D. on 04/27/2023 at 12:34
--- NOTE | 2023-04-27 11:02 | DI.RAD.S_ITS ---
PROCEDURE: XR ELBOW RT MIN 3V INDICATIONS: Fall TECHNIQUE: 3 views of the elbow were acquired. COMPARISON: None. FINDINGS: Bones: No fractures or dislocations. No suspicious bony lesions. Soft tissues: Very small anterior elbow joint effusion. Focal soft tissue swelling overlying the posterior right elbow. No suspicious soft tissue calcifications. IMPRESSION: Very small anterior elbow joint effusion. No definite fracture identified. There is also focal posterior right elbow soft tissue swelling which may represent olecranon bursitis. Consider immobilization and repeat imaging in 10-14 days if there is high clinical suspicion for occult fracture given mechanism of injury. Dictated by: Joni Hester M.D. on 04/27/2023 at 12:31 Approved by: Joni Hester M.D. on 04/27/2023 at 12:33
== END ==
PROVIDERS: Family Provider Internal Medicine; PCP Internal Medicine; Referring Provider Nurse Practitioner Family; Visit Provider Nurse Practitioner Family
DX: S49.91XA Unspecified injury of right shoulder and upper arm, initial encounter (principal); W19.XXXA Unspecified fall, initial encounter
CPT/HCPCS: 73030; 73080

== ENCOUNTER → 2023-09-25 10:33 | Outpatient (CLI) | payer MEDICARE, OTHER, SELFPAY ==
[2023-01-21 15:54] VITALS: PULSE 51; RESP 18; O2SAT 100
--- NOTE | 2023-09-25 10:35 | DI.CT.S_ITS ---
PROCEDURE: CT IVP A/P W/WO INDICATIONS: Malignant neoplasm of overlapping sites of bladder TECHNIQUE: Optional 5 mm thick noncontrast images acquired from the diaphragm to the symphysis pubis. After the administration of intravenous contrast, 5 mm thick images acquired from the diaphragm to the symphysis pubis after a 10-minute delay. 2 mm thick coronal and sagittal reformats were then performed of the kidneys and ureters. For radiation dose reduction, the following was used: automated exposure control, adjustment of mA and/or kV according to patient size. COMPARISON: [facility], CT, CT IVP A/P W/WO, 02/28/2023, 9:33. FINDINGS: Image quality: Diagnostic. Kidneys and Ureters: Both kidneys are normal in size, without hydronephrosis or nephrolithiasis on pre-contrast images. No perinephric fat stranding. There are bilateral low-density renal cysts. There is normal bilateral renal enhancement. Renal calyces appear normal in morphology when filled with contrast. Opacified portions of both ureters demonstrate normal caliber Bladder: The bladder is partially filled with contrast. There is circumferential wall thickening of the bladder and mild perivesicular fat stranding. The extent of bladder wall thickening is slightly increased when compared with the prior CT dated February 28, 2023. However, this may be to decreased distension from the prior study. There is a small left posterior bladder diverticulum. OTHER ORGANS: Lung bases: Unremarkable. Heart: No significant findings. Liver: No solid mass. Gallbladder: Unremarkable. Biliary ducts: No biliary dilation. Pancreas: No ductal dilation. Spleen: Size is within normal limits. Adrenal Glands: No adrenal nodules. Stomach and Bowel: Normal colonic caliber, without significant wall thickening. Patient is status post right hemicolectomy. Peritoneum: No abnormal intraperitoneal fluid. No free air. Ventral Wall: No hernia. Abdominal Nodes: No retroperitoneal or mesenteric adenopathy by size criteria. Vessels: Aorta and inferior vena cava are normal in size. There are scattered atheromatous calcifications throughout the aorta and iliac arteries bilaterally. PELVIS: Pelvic Organs: Unremarkable. Pelvic Nodes: No enlarged lymph nodes. Miscellaneous: There are small bilateral fat containing inguinal hernias. Bones: No aggressive osseous abnormality. IMPRESSION: 1. No suspicious renal mass lesions or suspicious filling defects within the bilateral renal collecting systems. 2. No hydronephrosis, nephrolithiasis, hydroureter, or ureterolithiasis. 3. Circumferential bladder wall thickening which likely correlates with the given history of bladder cancer. No findings to suggest new metastatic disease. Dictated by: Sharon Quiles M.D. on 09/25/2023 at 13:03 Approved by: Sharon Quiles M.D. on 09/25/2023 at 13:28
[2023-09-25 11:17] LABS: Estimated Glomerular Filt Rate > 60 mL/min (>60)
== END ==
PROVIDERS: Radiology Diagnostic Radiology; Family Provider Internal Medicine; PCP Internal Medicine; Referring Provider Urology; Visit Provider Urology
DX: C67.8 Malignant neoplasm of overlapping sites of bladder (principal)
CPT/HCPCS: 36415; 74178; 82565; Q9967

== ENCOUNTER → 2023-10-10 11:52 | Outpatient (CLI) | payer MEDICARE, OTHER, SELFPAY ==
[2023-01-21 15:54] VITALS: PULSE 51; RESP 18; O2SAT 100
[2023-10-10 13:00] LABS: Appearance Urine UA CLEAR; Bilirubin Urine UA NEGATIVE (NEGATIVE); Color Urine UA YELLOW; Glucose Urine UA NEGATIVE (Negative); Ketones Urine UA NEGATIVE (NEGATIVE); Leukocyte Esterase Urine UA NEGATIVE (NEGATIVE); Nitrite Urine UA NEGATIVE (Negative); Occult Blood Urine UA NEGATIVE (Negative); Protein Urine UA 1+ (Negative); Urobilinogen Urine UA 0.2 E.U./dL (0.2)
[2023-10-10 13:46] LABS: Bacteria Urine None Seen; RBC Urine None Seen (0-5/HPF); Squamous Epithelial Cell Urine None Seen (0-5/HPF); WBC Urine None Seen (0-5/HPF)
[2023-10-10 13:47] LABS: Culture Indicated Urine Cult Not Indicated
== END ==
PROVIDERS: Family Provider Internal Medicine; PCP Internal Medicine; Referring Provider Urology; Visit Provider Urology
DX: R39.15 Urgency of urination (principal)
CPT/HCPCS: 81001

== ENCOUNTER 2023-10-13 11:36 | Emergency (ER) | payer MEDICARE, OTHER, SELFPAY ==
[2023-01-21 15:54] VITALS: PULSE 51; RESP 18; O2SAT 100
--- NOTE | 2023-10-13 11:46 | ED_ITS ---
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 He states that he was constipated for the previous 4 days, took 3 Dulcolax last night and had an explosive bowel movement around 3:00 a.m. this morning. He states he started noticing some abdominal discomfort yesterday which has continued into today without worsening. He states that it does not hurt when still but hurts with palpation. He reports that when he had a bowel movement this morning, he had bright red blood in the toilet. He has shown me a video which is consistent with this. He denies any changes to urination but states over the last several weeks he has been having increased urination at night. He reports that he is presently having diffuse abdominal pain with palpation, but no pain while sitting still. He reports experiencing dry heaves yesterday but denies any nausea or vomiting. He denies taking anticoagulants, denies fever nor history of diverticulosis. He has follow up with urologist this week. He reports his most recent colonoscopy was in August 2020. He reports that the colonoscopy previous to the most recent 1 showed a polyp. He states polyp was removed, denies any new findings after colonoscopy. He reports history of appendectomy. He reports multiple surgically repaired abdominal hernias as well as inguinal hernias. He denies any scrotal pain. Review of chart shows recent CT abdomen done September 25, 2023 showing circumferential bladder wall thickening which is reportedly slightly increased when compared to abdominal CT in February 2023. Related Data Home Medications Medication Instructions Recorded Confirmed latanoprost 0.005 % eye drops 1 marcelle [facility] ##0 02/12/11 08/07/23 (Xalatan) alfuzosin 10 mg tablet,extended 10 mg PO BEDTIME ##0 11/09/11 08/07/23 release 24 hr (Uroxatral) fluticasone propionate 50 2 spray intranasal DAILY 07/23/18 08/07/23 mcg/actuation nasal spray,suspension loratadine 10 mg tablet 10 mg PO DAILY 07/23/18 08/07/23 Respironics Dreamstation CPAP #1 ea 03/25/19 08/07/23 cholecalciferol (vitamin D3) 25 25 mcg PO BID 05/31/20 08/07/23 mcg (1,000 unit) capsule psyllium husk 3.4 gram/5.4 gram 1 tbsp PO DAILY 04/11/22 08/07/23 oral powder (Metamucil) sodium chloride, sodium ea DAILY 04/11/22 08/07/23 bicarb-nasal rinse squeeze bottle with packet ([facility] Sinus Rinse Complete with packet) aspirin 81 mg capsule 81 mg PO DAILY 10/31/22 08/07/23 ibuprofen 200 mg tablet 400 mg PO Q8H PRN fever or pain 10/31/22 08/07/23 melatonin 5 mg tablet 2.5 mg PO BEDTIME PRN 10/31/22 08/07/23 rosuvastatin 5 mg tablet 5 mg PO DAILY 12/18/22 08/07/23 amlodipine 10 mg tablet 10 mg PO DAILY 08/07/23 08/07/23 hydralazine 100 mg tablet 100 mg PO 3XD 08/07/23 08/07/23 Previous Rx's Medication Instructions Recorded docusate sodium 100 mg capsule 100 mg PO DAILY #30 caps 10/23/22 (Colace) rabeprazole 20 mg tablet,delayed 20 mg PO DAILY #90 tabs 03/11/23 release lisinopril 40 mg tablet 40 mg PO BEDTIME #90 tabs 08/12/23 Allergies Allergy/AdvReac Type Severity Reaction Status Date / Time bimatoprost Allergy Mild SWELLING Verified 08/07/23 10:28 AT EYES cephalexin [CEPHALEXIN] Allergy Mild RASH Verified 08/07/23 10:28 scopolamine Allergy Mild BLURRED Verified 08/07/23 10:28 VISION, DISORIENTED Patient History <Teresita Good PA-C - Last Filed: 10/13/23 14:15> Medical History Microalbuminuria Bilateral leg edema Do not resuscitate Repeated falls Seizure 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) Venous insufficiency BPH w urinary obs/LUTS Mixed hyperlipidemia Essential hypertension Cerebrovascular disease Fractures Ankle pain (~2019) Mumps Measles Chicken pox Cataracts, bilateral History of elevated PSA (~2009) Hemorrhoid (~1957) Colon polyps Prostate cancer (~2009) Bladder cancer (~2006) 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) Incisional hernia of anterior abdominal wall without obstruction or gangrene Scoliosis Spinal stenosis Hearing loss (~2008) Glaucoma (~2000) Neoplasm, bladder Erectile dysfunction GERD (gastroesophageal reflux disease) Allergic rhinitis (~1944) BPH (benign prostatic hyperplasia) (~1997) HTN (hypertension) Obstructive sleep apnea of adult (~2009) Surgical History Hx of cystoscopy History of colon surgery History of bladder surgery (08/04/19) History of ankle surgery Anesthesia History of uvulopalatopharyngoplasty (~2000) Status post biopsy of thyroid gland History of surgery Hx of cataract surgery Hx of hernia repair (06/06/20) Hx of toe surgery Hx of vasectomy Hx of appendectomy Family History Father Heart disease Gallstones Cancer Mother Cancer Grandfather Heart disease Social History marital status: details: hugo Andersen, lives in [place], [place] household members: spouse lives independently: Yes caregiver/support person: No Smoking Status: Never smoker alcohol intake: current substance use type: does not use Smoking Status: Never smoker alcohol intake frequency: holidays/special occasions only Substance Use Type: does not use Exam <Teresita Good PA-C - Last Filed: 10/13/23 14:15> Initial Vital Signs Initial Vital Signs: Vital Signs Temperature 98.3 F 10/13/23 11:50 Pulse Rate 83 10/13/23 11:50 Respiratory Rate 18 10/13/23 11:50 Blood Pressure 122/64 10/13/23 11:50 Pulse Oximetry 98 10/13/23 11:50 Oxygen Delivery Method Room Air 10/13/23 11:50 GENERAL: 87 year old patient appears stated age. Well-developed patient, in no acute distress. Sitting upright in chair without pain. HEAD: Atraumatic. Normocephalic. EYES: Pupils equal round and reactive. No scleral icterus. No injection or drainage. NECK: Trachea midline. CARDIOVASCULAR: Regular rate and rhythm without murmurs, gallops, or rubs. RESPIRATORY: Clear to auscultation. Breath sounds equal bilaterally. No wheezes, rales, or rhonchi. 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 SKIN: No rash or erythema of visible areas <DO Madhu Persaud Last Filed: 10/13/23 14:17> Initial Vital Signs Initial Vital Signs: Vital Signs Temperature 98.3 F 10/13/23 11:50 Pulse Rate 83 10/13/23 11:50 Respiratory Rate 18 10/13/23 11:50 Blood Pressure 122/64 10/13/23 11:50 Pulse Oximetry 98 10/13/23 11:50 Oxygen Delivery Method Room Air 10/13/23 11:50 Course <Teresita Good PA-C - Last Filed: 10/13/23 14:15> Orders Ordered: ED Orders 10/13/23 12:07 XR acute abdomen series Stat CMP [Comprehensive Metabolic Panel] Stat Complete Blood Count AUTO DIFF Stat LDH [Lactate Dehydrogenase] Stat Lactate (Lactic Acid) Stat Lipase Stat PT [Prothrombin Time INR] Stat PTT Partial Thromboplastin Bari Stat 10/13/23 12:53 CT abdomen pelvis w con Stat Vital Signs Vital signs: Vital Signs - 8 hr 10/13/23 11:50 10/13/23 12:48 10/13/23 14:09 Temperature 98.3 F Pulse Rate 83 78 76 Respiratory Rate 18 20 18 Blood Pressure 122/64 120/61 125/68 Pulse Oximetry 98 96 97 Oxygen Delivery Method Room Air Room Air Room Air <DO Madhu Persaud Last Filed: 10/13/23 14:17> Orders Ordered: ED Orders 10/13/23 12:07 XR acute abdomen series Stat CMP [Comprehensive Metabolic Panel] Stat Complete Blood Count AUTO DIFF Stat LDH [Lactate Dehydrogenase] Stat Lactate (Lactic Acid) Stat Lipase Stat PT [Prothrombin Time INR] Stat PTT Partial Thromboplastin Bari Stat 10/13/23 12:53 CT abdomen pelvis w con Stat Vital Signs Vital signs: Vital Signs - 8 hr 10/13/23 11:50 10/13/23 12:48 10/13/23 14:09 Temperature 98.3 F Pulse Rate 83 78 76 Respiratory Rate 18 20 18 Blood Pressure 122/64 120/61 125/68 Pulse Oximetry 98 96 97 Oxygen Delivery Method Room Air Room Air Room Air MDM - Abdominal Pain <Teresita Good PA-C - Last Filed: 10/13/23 14:15> Lab Data 10/13/23 12:07 10/13/23 12:07 Labs: Lab Results 10/13/23 Range/Units 12:07 WBC 15.5 H (4.5-11.0) X10^3/uL RBC 5.04 (4.5-5.9) X10^6/uL Hgb 16.1 (13.5-17.5) g/dL Hct 47.0 (41-53) % MCV 93.2 (80-100) fL MCH 32.0 (26-34) PG MCHC 34.3 (30-36) % RDW 13.1 (11.6-14.8) % Plt Count 222 (150-400) X10^3/uL Neut % (Auto) 93.4 H (50-75) % Lymph % (Auto) 2.1 L (25-40) % [place] % (Auto) 3.8 (3-14) % Eos % (Auto) 0.3 L (2-4) % Baso % (Auto) 0.4 (0-2) % Neut # (Auto) 62186 H (4622-3070) /uL Lymph # (Auto) 300 L (7892-3483) /uL [place] # (Auto) 600 (0-900) /uL Eos # (Auto) 100 (0-450) /uL Baso # (Auto) 100 (0-100) /uL PT 12.1 (9.4-12.5) SECONDS INR 1.1 (0.9-1.3) APTT 28 (25.1-36.5) SECONDS Sodium 129 L (137-145) mmol/L Potassium 4.0 (3.4-5.1) mmol/L Chloride 99 (98-107) mmol/L Carbon Dioxide 22 (22-32) mmol/L BUN 18 (9-20) mg/dL Creatinine 0.68 (0.66-1.25) mg/dL Estimated GFR > 60 (>60) mL/min BUN/Creatinine Ratio 26.5 H (6-22) Glucose 124 H (80-110) mg/dL Lactate 1.7 (0.7-2.1) mmol/L Calcium 9.8 (8.4-10.2) mg/dL Total Bilirubin 1.2 (0.2-1.3) mg/dL AST 37 (17-59) IU/L ALT 25 (<50) IU/L Alkaline Phosphatase 66 (38-126) U/L Lactate Dehydrogenase 283 H (120-246) U/L Total Protein 6.9 (6.3-8.2) g/dL Albumin 3.8 (3.5-5.0) g/dL Globulin 3.1 (1.7-4.1) g/dL Albumin/Globulin Ratio 1.2 (1.0-2.8) Lipase 62 (23-300) U/L Point of care testing: Point of Care Testing Stool Occult Blood Positive Imaging Data XR Acute Abdomen Series: Radiologist's Impression: PROCEDURE: XR ACUTE ABDOMEN SERIES INDICATIONS: Abdominal pain, blood in stool TECHNIQUE: One view chest and two views of the abdomen were acquired. COMPARISON: [facility], CT, CT IVP A/P W/WO, 09/25/2023, 11:31. FINDINGS: Surgical changes and devices: Mild dextroconvex scoliotic curvature is seen. Age-appropriate bony degenerative changes are seen. Chest: Lungs are clear. Heart size is normal. No pleural effusions. No pneumoperitoneum. Abdomen: Bowel gas pattern is normal. No suspicious calcifications. Visualized solid organ contours appear normal. Bones: No suspicious bony lesions. IMPRESSION: No acute abnormality. The bowel gas pattern is nonobstructive. Dictated by: Steve Dennis M.D. on 10/13/2023 at 12:02 Approved by: Steve Dennis M.D. on 10/13/2023 at 12:03 CT scan - abdomen/pelvis: Radiologist's Impression: PROCEDURE: CT ABDOMEN PELVIS W CON INDICATIONS: Abdominal pain, blood in stool TECHNIQUE: After the administration of intravenous contrast, axial sections acquired from the lung bases to the pubic symphysis. Coronal and sagittal reformats were performed. For radiation dose reduction, the following was used: automated exposure control, adjustment of mA and/or kV according to patient size. COMPARISON: [facility], CR, XR ACUTE ABDOMEN SERIES, 10/13/2023, 12:19. [facility], CT, CT IVP A/P W/WO, 09/25/2023, 11:31. FINDINGS: Image quality: Diagnostic. Lower Chest: No significant findings. ABDOMEN: Liver: Liver measures 17.2 cm with steatosis. Gallbladder: No radiopaque gallstones or wall thickening. Biliary ducts: No biliary dilation. Pancreas: No ductal dilation. Spleen: Size is within normal limits. Adrenal Glands: No adrenal nodules. Kidneys and Ureters: No hydronephrosis. No solid mass. No complex renal cystic lesion which requires follow up. Simple bilateral renal cysts. Stomach and Bowel: Nonobstructive gas pattern. There is diffuse colonic thickening most severe in the distal transverse colon extending through the sigmoid colon. There is surrounding inflammatory change. No/minimal appreciable diverticula. Hiatal hernia. Peritoneum: No abnormal intraperitoneal fluid. No free air. Ventral Wall: No hernia. Abdominal Nodes: No retroperitoneal or mesenteric adenopathy by size criteria. Vessels: Aorta and inferior vena cava are normal in size. PELVIS: Pelvic Organs: Unremarkable. Bladder: There is diffusely thickened bladder wall and it is incompletely distended. Pelvic Nodes: No enlarged lymph nodes. Miscellaneous: No inguinal hernias are seen. Bones: No aggressive osseous abnormality. IMPRESSION: Diffuse colonic thickening with inflammatory change most severe in the left colon as described above. Overall appearance is most suggestive of colitis secondary to infection or inflammatory causes. Ischemic colitis cannot be definitively excluded. Diffuse persistent bladder wall thickening with incomplete distention. This could be secondary to infection/inflammation. However, thickening may be secondary to history of bladder malignancy and continued interval follow-up is recommended. Dictated by: Connie Chavez M.D. on 10/13/2023 at 13:43 Approved by: Connie Chavez M.D. on 10/13/2023 at 13:47 MDM Narrative Medical decision making narrative: Patient is an 87-year-old male presenting for evaluation after noticing bright red blood in toilet today after bowel movement as well as abdominal discomfort. He reported 4 days of constipation previous. He reports a history of colon polyp removal within the last 2 years and current evaluation of presence of cancer cells within his bladder with uncertain source. He is undergoing follow up with urologist. Studies today included CBC, CMP, lactate, LDH, lipase and abdominal series. Hemoccult shows positive evidence of blood. Differentials considered but not limited to include: GI bleed, hemorrhoid, diverticulitis, colitis, abdominal aneurysm, hernia, bowel obstruction Prior Charts reviewed: 09/25/2023 CT abd/pelvis: showed bladder wall thickening. Imaging reviewed: X-ray acute abdomen series: Showed nonobstructive bowel gas pattern nor other acute abnormalities. Lab: White blood cell count elevated at 15.5 with increased neutrophils, PT INR and PTT are within normal limits, sodium is slightly low at 129, LDH is slightly elevated at 283 with the upper limit of normal being 246, this may be explained by his suspected current malignancy of bladder, lipase within normal limits, lactate is 1.7. Patient's vital signs have been stable throughout his stay. CT abdomen pelvis shows colonic wall thickening indicating colitis. Consultations: Discussed case with Dr. Hood, he recommends CT abdomen with contrast to rule out concerning causes. Since vital signs are stable, he may simply have a leukocytosis and need counseling regarding laxatives. Discussed results with Dr. Hood. CT shows evidence of colitis. As vital signs are stable, and patient does not have pain out of proportion, recommend he returned home, continue bland diet and stay well hydrated and follow up with primary care provider if symptoms are not improving. Findings and discharge diagnosis discussed with patient/family followed by verbalization of understanding Return precautions discussed with patient/family whom verbalize understanding of diagnosis and plan Differential diagnoses: GI bleed, Abdominal aortic aneurysm, diverticulitis, hernia, bowel obstruction, <Shade Hood, DO - Last Filed: 10/13/23 14:17> Lab Data Labs: Lab Results 10/13/23 Range/Units 12:07 WBC 15.5 H (4.5-11.0) X10^3/uL RBC 5.04 (4.5-5.9) X10^6/uL Hgb 16.1 (13.5-17.5) g/dL Hct 47.0 (41-53) % MCV 93.2 (80-100) fL MCH 32.0 (26-34) PG MCHC 34.3 (30-36) % RDW 13.1 (11.6-14.8) % Plt Count 222 (150-400) X10^3/uL Neut % (Auto) 93.4 H (50-75) % Lymph % (Auto) 2.1 L (25-40) % [place] % (Auto) 3.8 (3-14) % Eos % (Auto) 0.3 L (2-4) % Baso % (Auto) 0.4 (0-2) % Neut # (Auto) 09669 H (4892-8235) /uL Lymph # (Auto) 300 L (9857-6992) /uL [place] # (Auto) 600 (0-900) /uL Eos # (Auto) 100 (0-450) /uL Baso # (Auto) 100 (0-100) /uL PT 12.1 (9.4-12.5) SECONDS INR 1.1 (0.9-1.3) APTT 28 (25.1-36.5) SECONDS Sodium 129 L (137-145) mmol/L Potassium 4.0 (3.4-5.1) mmol/L Chloride 99 (98-107) mmol/L Carbon Dioxide 22 (22-32) mmol/L BUN 18 (9-20) mg/dL Creatinine 0.68 (0.66-1.25) mg/dL Estimated GFR > 60 (>60) mL/min BUN/Creatinine Ratio 26.5 H (6-22) Glucose 124 H (80-110) mg/dL Lactate 1.7 (0.7-2.1) mmol/L Calcium 9.8 (8.4-10.2) mg/dL Total Bilirubin 1.2 (0.2-1.3) mg/dL AST 37 (17-59) IU/L ALT 25 (<50) IU/L Alkaline Phosphatase 66 (38-126) U/L Lactate Dehydrogenase 283 H (120-246) U/L Total Protein 6.9 (6.3-8.2) g/dL Albumin 3.8 (3.5-5.0) g/dL Globulin 3.1 (1.7-4.1) g/dL Albumin/Globulin Ratio 1.2 (1.0-2.8) Lipase 62 (23-300) U/L Point of care testing: Point of Care Testing Stool Occult Blood Positive Discharge Plan Departure Patient Disposition: Home Clinical Impression: Colitis Instructions: DI for Colitis Activity Restrictions/Additional Instructions: Thank you for coming in today for your care. You were diagnosed today with colitis. The CT scan of your abdomen showed thickening of your colon wall with inflammatory changes indicating colitis. Recommend treatment with bland diet and emphasis on good hydration and continue follow up with primary care provider this week. Your other lab work did not show any evidence of internal bleeding or system wide infection. If abdominal pain worsens or you develop any fever chills or other concerning signs or symptoms or dark tarry stools will return in worsening of blood in stool, recommend you return to the emergency department for further evaluation. It was a pleasure meeting you today. Prescriptions: No Action latanoprost [Xalatan] 0.005 % drops 1 drp OPHTH HS Qty: 0 alfuzosin [Uroxatral] 10 MG tablet extended release 24 hr 10 mg PO BEDTIME Qty: 0 rabeprazole 20 mg tablet,delayed release (DR/EC) 20 mg PO DAILY Qty: 90 3RF lisinopril 40 mg tablet 40 mg PO BEDTIME Qty: 90 3RF aspirin 81 mg capsule 81 mg PO DAILY melatonin 5 mg tablet 2.5 mg PO BEDTIME PRN ibuprofen 200 mg tablet 400 mg PO Q8H PRN (Reason: fever or pain) hydralazine 100 mg tablet 100 mg PO 3XD amlodipine 10 mg tablet 10 mg PO DAILY cholecalciferol (vitamin D3) 25 mcg (1,000 unit) capsule 25 mcg PO BID rosuvastatin 5 mg tablet 5 mg PO DAILY docusate sodium [Colace] 100 mg capsule 100 mg PO DAILY Qty: 30 0RF Rx Instructions: Take while taking oxycodone for pain to prevent constipation. [employer] Sinus Rinse Complete Packet With Rinse Device DAILY Rx Instructions: . Metamucil 3.4 gram/5.4 gram powder 1 tbsp PO DAILY Rx Instructions: mix into at least 8 oz of water or juice before administering fluticasone propionate 50 mcg/actuation spray,suspension 2 spray NASAL DAILY loratadine 10 mg tablet 10 mg PO DAILY (DME) Respironics Dreamstation CPAP Qty: 1 Dose Instruction: As directed Patient Comments: Pressure: 8-14 cmH2O DME: Medicare [place] Rx Instructions: As directed Referrals: Sanford Kramer MD [Primary Care Provider] - Stand Alone Forms: Patient Portal/API ED Sign-out <Shade Hood, - Last Filed: 10/13/23 14:17> Cosign ED Attending Cosignature Attestation: Dr Hood Co-Sign Statement: I was available for consultation during this patient's emergency department visit. This chart is signed by myself for administrative purposes only. I did not have direct contact with this patient during this visit. They were seen independently by the APC.
[2023-10-13 11:50] VITALS: BP 122/64; PULSE 83; RESP 18; TEMP 36.8; O2SAT 98; BMI 27.7
--- NOTE | 2023-10-13 12:07 | DI.RAD.S_ITS ---
PROCEDURE: XR ACUTE ABDOMEN SERIES INDICATIONS: Abdominal pain, blood in stool TECHNIQUE: One view chest and two views of the abdomen were acquired. COMPARISON: [facility], CT, CT IVP A/P W/WO, 09/25/2023, 11:31. FINDINGS: Surgical changes and devices: Mild dextroconvex scoliotic curvature is seen. Age-appropriate bony degenerative changes are seen. Chest: Lungs are clear. Heart size is normal. No pleural effusions. No pneumoperitoneum. Abdomen: Bowel gas pattern is normal. No suspicious calcifications. Visualized solid organ contours appear normal. Bones: No suspicious bony lesions. IMPRESSION: No acute abnormality. The bowel gas pattern is nonobstructive. Dictated by: Steve Dennis M.D. on 10/13/2023 at 12:02 Approved by: Steve Dennis M.D. on 10/13/2023 at 12:03
[2023-10-13 12:16] LABS: Add Manual Diff / Slide Review NO; Basophils Absolute Auto 100 /uL (0-100); Basophils Percent Auto 0.4 % (0-2); Eosinophils Absolute Auto 100 /uL (0-450); Eosinophils Percent Auto 0.3 % (2-4); Hemoglobin 16.1 g/dL (13.5-17.5); Lymphocytes Absolute Auto 300 /uL (1100-4500); Lymphocytes Percent Auto 2.1 % (25-40); Mean Corpuscular HGB Conc 34.3 % (30-36); Mean Corpuscular Volume 93.2 fL (80-100); Monocytes Absolute Auto 600 /uL (0-900); Monocytes Percent Auto 3.8 % (3-14); Neutrophils Absolute Auto 14400 /uL (1500-7000); Neutrophils Percent Auto 93.4 % (50-75); Platelet Count 222 X10^3/uL (150-400); Red Blood Cell Count 5.04 X10^6/uL (4.5-5.9); Red Cell Distribution Width 13.1 % (11.6-14.8); White Blood Cell Count 15.5 X10^3/uL (4.5-11.0)
[2023-10-13 12:30] LABS: Alanine Aminotransferase 25 IU/L (<50); Albumin 3.8 g/dL (3.5-5.0); Albumin Globulin Ratio 1.2 (1.0-2.8); Alkaline Phosphatase 66 U/L (38-126); Aspartate Aminotransferase 37 IU/L (17-59); BUN Creatinine Ratio 26.5 (6-22); Bilirubin Total 1.2 mg/dL (0.2-1.3); Blood Urea Nitrogen 18 mg/dL (9-20); Calcium 9.8 mg/dL (8.4-10.2); Carbon Dioxide 22 mmol/L (22-32); Chloride 99 mmol/L (98-107); Estimated Glomerular Filt Rate > 60 mL/min (>60); Globulin 3.1 g/dL (1.7-4.1); Glucose 124 mg/dL (80-110); HEMOLYSIS 26 (0-50); Sodium 129 mmol/L (137-145); Total Protein 6.9 g/dL (6.3-8.2)
[2023-10-13 12:43] LABS: INR 1.1 (0.9-1.3); Prothrombin Time 12.1 SECONDS (9.4-12.5)
[2023-10-13 12:46] LABS: PTT Partial Thromboplastin Tim 28 SECONDS (25.1-36.5)
[2023-10-13 12:47] LABS: Lactate (Lactic Acid) 1.7 mmol/L (0.7-2.1); Lactate Dehydrogenase 283 U/L (120-246); Lipase 62 U/L (23-300)
[2023-10-13 12:48] VITALS: BP 120/61; PULSE 78; RESP 20; O2SAT 96
--- NOTE | 2023-10-13 12:53 | DI.CT.S_ITS ---
PROCEDURE: CT ABDOMEN PELVIS W CON INDICATIONS: Abdominal pain, blood in stool TECHNIQUE: After the administration of intravenous contrast, axial sections acquired from the lung bases to the pubic symphysis. Coronal and sagittal reformats were performed. For radiation dose reduction, the following was used: automated exposure control, adjustment of mA and/or kV according to patient size. COMPARISON: [facility], CR, XR ACUTE ABDOMEN SERIES, 10/13/2023, 12:19. [facility], CT, CT IVP A/P W/WO, 09/25/2023, 11:31. FINDINGS: Image quality: Diagnostic. Lower Chest: No significant findings. ABDOMEN: Liver: Liver measures 17.2 cm with steatosis. Gallbladder: No radiopaque gallstones or wall thickening. Biliary ducts: No biliary dilation. Pancreas: No ductal dilation. Spleen: Size is within normal limits. Adrenal Glands: No adrenal nodules. Kidneys and Ureters: No hydronephrosis. No solid mass. No complex renal cystic lesion which requires follow up. Simple bilateral renal cysts. Stomach and Bowel: Nonobstructive gas pattern. There is diffuse colonic thickening most severe in the distal transverse colon extending through the sigmoid colon. There is surrounding inflammatory change. No/minimal appreciable diverticula. Hiatal hernia. Peritoneum: No abnormal intraperitoneal fluid. No free air. Ventral Wall: No hernia. Abdominal Nodes: No retroperitoneal or mesenteric adenopathy by size criteria. Vessels: Aorta and inferior vena cava are normal in size. PELVIS: Pelvic Organs: Unremarkable. Bladder: There is diffusely thickened bladder wall and it is incompletely distended. Pelvic Nodes: No enlarged lymph nodes. Miscellaneous: No inguinal hernias are seen. Bones: No aggressive osseous abnormality. IMPRESSION: Diffuse colonic thickening with inflammatory change most severe in the left colon as described above. Overall appearance is most suggestive of colitis secondary to infection or inflammatory causes. Ischemic colitis cannot be definitively excluded. Diffuse persistent bladder wall thickening with incomplete distention. This could be secondary to infection/inflammation. However, thickening may be secondary to history of bladder malignancy and continued interval follow-up is recommended. Dictated by: Connie Chavez M.D. on 10/13/2023 at 13:43 Approved by: Connie Chavez M.D. on 10/13/2023 at 13:47
--- NOTE | 2023-10-13 12:53 | PC.NURSE ---
provider at bedside
[2023-10-13 14:09] VITALS: BP 125/68; PULSE 76; RESP 18; O2SAT 97
== END 2023-10-13 14:19 | disposition home or self-care (01) ==
PROVIDERS: Emergency Provider Physician Assistant; Family Provider Internal Medicine; PCP Internal Medicine
DX: K52.9 Noninfective gastroenteritis and colitis, unspecified (principal); R10.9 Unspecified abdominal pain
CPT/HCPCS: 36415; 74022; 74177; 80053; 82272; 83605; 83615; 83690; 85025; 85610; 85730; 99284; Q9967

== ENCOUNTER → 2024-03-23 12:14 | Outpatient (CLI) | payer MEDICARE, OTHER, SELFPAY ==
[2023-01-21 15:54] VITALS: PULSE 51; RESP 18; O2SAT 100
[2024-03-23 13:49] LABS: Add Manual Diff / Slide Review NO; Basophils Absolute Auto 0 /uL (0-100); Basophils Percent Auto 0.6 % (0-2); Eosinophils Absolute Auto 200 /uL (0-450); Eosinophils Percent Auto 3.4 % (2-4); Hematocrit 42.3 % (41-53); Hemoglobin 14.5 g/dL (13.5-17.5); Lymphocytes Absolute Auto 1100 /uL (1100-4500); Lymphocytes Percent Auto 19.1 % (25-40); Mean Corpuscular HGB Conc 34.2 % (30-36); Mean Corpuscular Hemoglobin 32.3 PG (26-34); Mean Corpuscular Volume 94.6 fL (80-100); Monocytes Absolute Auto 800 /uL (0-900); Monocytes Percent Auto 13.2 % (3-14); Neutrophils Absolute Auto 3700 /uL (1500-7000); Neutrophils Percent Auto 63.7 % (50-75); Platelet Count 200 X10^3/uL (150-400); Red Blood Cell Count 4.47 X10^6/uL (4.5-5.9); Red Cell Distribution Width 12.9 % (11.6-14.8); White Blood Cell Count 5.9 X10^3/uL (4.5-11.0)
[2024-03-23 14:25] LABS: Alanine Aminotransferase 22 IU/L (<50); Albumin 3.8 g/dL (3.5-5.0); Albumin Globulin Ratio 1.4 (1.0-2.8); Alkaline Phosphatase 73 U/L (38-126); Aspartate Aminotransferase 33 IU/L (17-59); BUN Creatinine Ratio 26.3 (6-22); Bilirubin Total 0.8 mg/dL (0.2-1.3); Blood Urea Nitrogen 15 mg/dL (9-20); Calcium 9.1 mg/dL (8.4-10.2); Carbon Dioxide 25 mmol/L (22-32); Chloride 102 mmol/L (98-107); Estimated Glomerular Filt Rate > 60 mL/min (>60); Globulin 2.8 g/dL (1.7-4.1); Glucose 100 mg/dL (80-110); HEMOLYSIS < 15 (0-50); Potassium 4.4 mmol/L (3.4-5.1); Sodium 132 mmol/L (137-145); Total Protein 6.6 g/dL (6.3-8.2)
== END ==
PROVIDERS: Family Provider Internal Medicine; PCP Internal Medicine; Referring Provider Urology; Visit Provider Urology
DX: C67.9 Malignant neoplasm of bladder, unspecified (principal)
CPT/HCPCS: 36415; 80053; 85025

== ENCOUNTER → 2024-03-26 10:45 | Outpatient (CLI) | payer MEDICARE, OTHER, SELFPAY ==
[2023-01-21 15:54] VITALS: PULSE 51; RESP 18; O2SAT 100
--- NOTE | 2024-03-26 10:46 | DI.CT.S_ITS ---
PROCEDURE: CT CHEST WO CON INDICATIONS: Malignant neoplasm of bladder, unspecified TECHNIQUE: Noncontrast 5 mm thick sections acquired from the pulmonary apices to the posterior costophrenic angles. 1 mm lung window, 5 mm thick coronal and sagittal and 7 mm axial MIP reformats were then acquired. For radiation dose reduction, the following was used: automated exposure control, adjustment of mA and/or kV according to patient size. COMPARISON: None. FINDINGS: Image quality: Diagnostic. Lower Neck: No enlarged lymph nodes. Thyroid: No thyroid nodules which require sonographic follow up, per consensus guidelines. Axillae: No enlarged lymph nodes. Chest Wall: Unremarkable. Bones: Unremarkable. Lungs and Pleura: No pneumothorax or pleural effusions. Salve Vladimir bilateral pulmonary nodules, several of which are calcified, many of which are pleural or fissural based, occasional parenchymal solid nodules, all of which appear stable. A 0.6 cm left lower lobe nodule, 3/204 is one of the largest parenchymal nodules. Juxta fissural nodule measuring 0.8 cm associated with the right minor fissure, 3/161, is largest right lung nodule. Heart: Heart size is normal. No pericardial effusion. Moderate coronary artery calcification. Thoracic Vessels: The aorta and pulmonary arteries demonstrate normal size. Moderate aortic arch calcification. Mediastinum and Shu: No enlarged lymph nodes. Esophagus: No wall thickening. No hiatal hernia. Upper Abdomen: Atherosclerotic calcification of the abdominal aorta, renal artery origin, right greater than left, and proximal SMA. Partially imaged bilateral renal cysts. Visible portions of upper abdominal organs are otherwise normal. IMPRESSION: No suspicious lung nodules to suggest metastatic disease in the chest. No adenopathy. Stable and probably benign bilateral pleural and parenchymal nodules, many likely granulomas. Dictated by: Akiko Lopez M.D. on 03/27/2024 at 0:00 Approved by: Akiko Lopez M.D. on 03/27/2024 at 0:20
--- NOTE | 2024-03-26 10:46 | DI.CT.S_ITS ---
PROCEDURE: CT IVP A/P W/WO INDICATIONS: Malignant neoplasm of bladder, unspecified TECHNIQUE: Optional 5 mm thick noncontrast images acquired from the diaphragm to the symphysis pubis. After the administration of intravenous contrast, 5 mm thick images acquired from the diaphragm to the symphysis pubis after a 10-minute delay. 2 mm thick coronal and sagittal reformats were then performed of the kidneys and ureters. For radiation dose reduction, the following was used: automated exposure control, adjustment of mA and/or kV according to patient size. COMPARISON: [facility], CT, CT IVP A/P W/WO, 09/25/2023, 11:31. FINDINGS: Image quality: Diagnostic. Kidneys and Ureters: Both kidneys are normal size. No nephrolithiasis or hydronephrosis. A few cysts are present in each kidney, the largest in the right arises exophytically from the anterior inferior pole and measures about 9.5 cm in diameter. The largest in the left kidney is corticomedullary without an exophytic component and measures 4 cm. No solid enhancing masses. The opacified collecting systems are normal without filling defects. The right ureter is normal caliber. The left mid to distal ureter is mildly prominent. No ureteral calcifications or suspicious wall thickening. Bladder: Partially filled urinary bladder demonstrates mild anterior wall thickening and fat stranding along the anterior serosal surface. Postcontrast, the bladder wall normalizes once the bladder is more filled. No visible intraluminal filling defects. Tiny left posterior bladder diverticulum. OTHER: Lower chest: Dictated separately Liver: No solid mass. Gallbladder: No wall thickening or calcified stones. Biliary ducts: No biliary dilation. Pancreas: No ductal dilation. Spleen: Size is within normal limits. Adrenal Glands: A few thin benign calcifications associated with each adrenal gland. No discrete mass. Stomach and Bowel: Stomach and small bowel loops are normal caliber. Chronic anastomosis in the right upper quadrant. Surgically absent appendix. Normal colon. Peritoneum: No abnormal intraperitoneal fluid. No free air. Ventral Wall: There is been ventral epigastric midline hernia repair with mesh. Just below the mesh are a few tiny ventral hernias, one appears to contain a nonobstructing knuckle of small bowel. Abdominal Nodes: No retroperitoneal or mesenteric adenopathy by size criteria. Vessels: The abdominal aorta, IVC, and portal vein are of normal caliber. Moderate aortic atherosclerosis with calcification at renal artery origins, proximal SMA and proximal common iliac arteries. PELVIS: Pelvic Organs: Diminutive prostate gland with a central defect of prior TURP. Pelvic Nodes: No enlarged lymph nodes. Miscellaneous: No inguinal hernias are seen. Bones: No aggressive osseous abnormality. Multilevel disc and endplate degeneration in the spine. Grade 1 anterolisthesis L5 on S1. IMPRESSION: Decreasing overall urinary bladder wall thickening with mild residual perivesicular fat stranding, possibly treatment changes. There is no developing neoplasm. The upper urinary tracts are negative for suspicious cyst, solid mass, stone, or other soft tissue lesion. Moderate abdominal aortic calcification. Dictated by: Akiko Lopez M.D. on 03/27/2024 at 0:23 Approved by: Akiko Lopez M.D. on 03/27/2024 at 0:37
== END ==
LOC: CT 10:46
PROVIDERS: Family Provider Internal Medicine; PCP Internal Medicine; Referring Provider Urology; Visit Provider Urology
DX: C67.9 Malignant neoplasm of bladder, unspecified (principal); C66.1 Malignant neoplasm of right ureter; I70.0 Atherosclerosis of aorta; N28.1 Cyst of kidney, acquired; I25.10 Atherosclerotic heart disease of native coronary artery without angina pectoris; R91.8 Other nonspecific abnormal finding of lung field; M43.17 Spondylolisthesis, lumbosacral region
CPT/HCPCS: 71250; 74178; Q9967

== ENCOUNTER → 2024-05-19 09:45 | Outpatient (CLI) | payer MEDICARE, OTHER, SELFPAY ==
[2023-01-21 15:54] VITALS: PULSE 51; RESP 18; O2SAT 100
--- NOTE | 2024-05-19 09:47 | DI.US.S_ITS ---
PROCEDURE: US PERIPH VENOUS LOW EXTREM RT INDICATIONS: EDEMA POST TORN ACHILIES TECHNIQUE: Real-time imaging, as well as color and pulse Doppler interrogation, were performed of the lower extremity deep veins from the inguinal ligament to the popliteal fossa, with documentation of the visualized calf veins. COMPARISON: None. FINDINGS: The common femoral, femoral, popliteal, and the visualized calf veins are normally compressible, and free of intraluminal thrombus. Color and pulse Doppler demonstrate normal phasic intraluminal flow. There is normal augmentation response to distal compression maneuver. IMPRESSION: No findings of lower extremity deep venous thrombosis. Dictated by: Steve Dennis M.D. on 05/19/2024 at 10:01 Approved by: Steve Dennis M.D. on 05/19/2024 at 10:02
== END ==
PROVIDERS: Family Provider Internal Medicine; PCP Internal Medicine; Referring Provider Orthopaedic Surgery Foot and Ankle Surgery; Visit Provider Orthopaedic Surgery Foot and Ankle Surgery
DX: S86.011D Strain of right Achilles tendon, subsequent encounter (principal)
CPT/HCPCS: 93971

== ENCOUNTER → 2024-05-29 15:53 | Outpatient (CLI) | payer MEDICARE, OTHER, SELFPAY ==
[2023-01-21 15:54] VITALS: PULSE 51; RESP 18; O2SAT 100
--- NOTE | 2024-05-29 15:55 | DI.MRI.S_ITS ---
PROCEDURE: MR ANKLE RT WO CON INDICATIONS: ACUTE RIGHT ANKLE PAIN TECHNIQUE: Noncontrast sagittal T1 spin echo and T2 fast spin echo with fat saturation, axial proton density fast spin echo and T2 fast spin echo with fat saturation, coronal T1 spin echo and T2 fast spin echo with fat saturation through the ankle/hindfoot. COMPARISON: [facility], CR, XR ANKLE 3 VIEWS WEIGHT BEARING RIGHT, 05/26/2024, 13:57. [facility], MR, MR ANKLE RT WO CON, 12/12/2020, 17:01. FINDINGS: Image quality: Excellent Tendons: Mild tenosynovitis of the posterior tibialis and the flexor digitorum longus. The flexor hallucis longus is unremarkable. Moderate tenosynovitis of the extensor digitorum longus. The anterior tibialis and the extensor hallucis longus are unremarkable. Longitudinal split tear of the peroneal brevis. The peroneal longus is unremarkable. Severe tendinosis of the Achilles tendon with low grade interstitial tear at the mid Achilles tendon. Susceptibility artifact posterior to the mid Achilles tendon, postprocedural. No high-grade tear of the Achilles tendon. Ligaments: The anterior and the posterior tibiofibular ligament is intact. The anterior and the posterior talofibular ligament are intact. The calcaneofibular ligament is intact. The deep portion of the deltoid ligament is intact. Sinus tarsi: No fibrosis Plantar fascia: Unremarkable Muscle: Diffuse mild muscle edema in the midfoot without significant fatty atrophy, nonspecific. Bones: Mild degenerative changes of the 2nd tarsometatarsal joint with mild subchondral marrow edema. No acute fracture. No significant tibiotalar effusion. Moderate effusion within the posterior subtalar joint. Diffuse subcutaneous edema of the ankle. IMPRESSION: 1. Moderate tenosynovitis of the extensor digitorum longus. 2. Longitudinal split tear of the peroneal brevis. 3. Severe tendinosis of the Achilles tendon with low grade interstitial tear at the mid tendon. Postprocedure changes about the mid Achilles tendon. 4. Diffuse muscle edema in the midfoot and diffuse subcutaneous edema in the ankle, nonspecific. 5. Mild degenerative change of the 2nd tarsometatarsal joint. Dictated by: Michelle Chi M.D. on 05/29/2024 at 18:03 Approved by: Michelle Chi M.D. on 05/29/2024 at 18:14
== END ==
LOC: MRI 15:54
PROVIDERS: Family Provider Internal Medicine; PCP Internal Medicine; Referring Provider Orthopaedic Surgery Foot and Ankle Surgery; Visit Provider Orthopaedic Surgery Foot and Ankle Surgery
DX: S96.811A Strain of other specified muscles and tendons at ankle and foot level, right foot, initial encounter (principal); S86.011A Strain of right Achilles tendon, initial encounter; M65.871 Other synovitis and tenosynovitis, right ankle and foot; M25.474 Effusion, right foot; M25.471 Effusion, right ankle; M25.571 Pain in right ankle and joints of right foot
CPT/HCPCS: 73721

== ENCOUNTER → 2024-07-17 13:15 | Outpatient (CLI) | payer MEDICARE, OTHER, SELFPAY ==
[2023-01-21 15:54] VITALS: PULSE 51; RESP 18; O2SAT 100
[2024-07-17 15:17] LABS: Appearance Urine UA CLEAR; Bilirubin Urine UA NEGATIVE (NEGATIVE); Color Urine UA YELLOW; Glucose Urine UA NEGATIVE (Negative); Ketones Urine UA NEGATIVE (NEGATIVE); Nitrite Urine UA NEGATIVE (Negative); Protein Urine UA 1+ (Negative); Specific Gravity Urine UA 1.015 (1.000-1.035); Urobilinogen Urine UA 0.2 E.U./dL (0.2); pH Urine UA 5.5 (4.5-8.0)
[2024-07-17 15:40] LABS: Bacteria Urine Few (2-10); Leukocyte Esterase Urine UA 1+ (NEGATIVE); Occult Blood Urine UA TRACE-INTACT (Negative); RBC Urine 1-5/HPF (0-5/HPF); Squamous Epithelial Cell Urine 0-1 /HPF (0-5/HPF); Urine Volume 10mL (spun); WBC Urine 1-5/HPF (0-5/HPF)
[2024-07-17 15:41] LABS: Culture Indicated Urine Specimen Cultured; Mucus Urine 1+ (Negative)
[2024-07-17 17:07] LABS: Alanine Aminotransferase 21 IU/L (<50); Albumin 3.8 g/dL (3.5-5.0); Albumin Globulin Ratio 1.5 (1.0-2.8); Alkaline Phosphatase 72 U/L (38-126); Aspartate Aminotransferase 28 IU/L (17-59); BUN Creatinine Ratio 22.4 (6-22); Bilirubin Total 0.7 mg/dL (0.2-1.3); Blood Urea Nitrogen 13 mg/dL (9-20); Calcium 9.5 mg/dL (8.4-10.2); Carbon Dioxide 27 mmol/L (22-32); Chloride 96 mmol/L (98-107); Estimated Glomerular Filt Rate > 60 mL/min (>60); Globulin 2.5 g/dL (1.7-4.1); Glucose 130 mg/dL (80-110); HEMOLYSIS < 15 (0-50); Potassium 4.3 mmol/L (3.4-5.1); Sodium 130 mmol/L (137-145); Total Protein 6.3 g/dL (6.3-8.2)
[2024-07-17 18:23] LABS: Add Manual Diff / Slide Review NO; Basophils Absolute Auto 100 /uL (0-100); Basophils Percent Auto 0.8 % (0-2); Eosinophils Absolute Auto 300 /uL (0-450); Eosinophils Percent Auto 3.8 % (2-4); Hematocrit 41.6 % (41-53); Hemoglobin 14.4 g/dL (13.5-17.5); Lymphocytes Absolute Auto 1200 /uL (1100-4500); Lymphocytes Percent Auto 17.3 % (25-40); Mean Corpuscular HGB Conc 34.6 % (30-36); Mean Corpuscular Hemoglobin 32.6 PG (26-34); Mean Corpuscular Volume 94.3 fL (80-100); Monocytes Absolute Auto 1000 /uL (0-900); Monocytes Percent Auto 14.2 % (3-14); Neutrophils Absolute Auto 4400 /uL (1500-7000); Neutrophils Percent Auto 63.9 % (50-75); Platelet Count 238 X10^3/uL (150-400); Red Blood Cell Count 4.41 X10^6/uL (4.5-5.9); Red Cell Distribution Width 12.7 % (11.6-14.8); White Blood Cell Count 6.9 X10^3/uL (4.5-11.0)
== END ==
PROVIDERS: Family Provider Internal Medicine; PCP Internal Medicine; Referring Provider Internal Medicine; Visit Provider Urology
DX: C67.8 Malignant neoplasm of overlapping sites of bladder (principal); C67.9 Malignant neoplasm of bladder, unspecified; Z85.46 Personal history of malignant neoplasm of prostate; N40.1 Benign prostatic hyperplasia with lower urinary tract symptoms; N13.8 Other obstructive and reflux uropathy
CPT/HCPCS: 36415; 80053; 81001; 85025; 87086

== ENCOUNTER → 2024-07-28 08:19 | Outpatient (CLI) | payer MEDICARE, OTHER, SELFPAY ==
[2023-01-21 15:54] VITALS: PULSE 51; RESP 18; O2SAT 100
[2024-07-28 10:20] LABS: Blood Urea Nitrogen 13 mg/dL (9-20); Calcium 9.5 mg/dL (8.4-10.2); Carbon Dioxide 25 mmol/L (22-32); Chloride 98 mmol/L (98-107); Cholesterol 144 mg/dL (140-199); Estimated Glomerular Filt Rate > 60 mL/min (>60); Glucose 94 mg/dL (80-110); HDL Cholesterol 52 mg/dL (40-60); HEMOLYSIS < 15 (0-50); LDL Cholesterol Calculated 83 mg/dL (<100); Potassium 4.3 mmol/L (3.4-5.1); Sodium 130 mmol/L (137-145); Triglycerides 47 mg/dL (35-150)
== END ==
PROVIDERS: Family Provider Internal Medicine; PCP Internal Medicine; Referring Provider Internal Medicine Cardiovascular Disease; Visit Provider Internal Medicine Cardiovascular Disease
DX: I10 Essential (primary) hypertension (principal); E78.5 Hyperlipidemia, unspecified
CPT/HCPCS: 36415; 80048; 80061

== ENCOUNTER → 2024-08-10 12:03 | Outpatient (CLI) | payer MEDICARE, OTHER, SELFPAY ==
[2023-01-21 15:54] VITALS: PULSE 51; RESP 18; O2SAT 100
[2024-08-10 14:51] LABS: Appearance Urine UA CLEAR; Bilirubin Urine UA NEGATIVE (NEGATIVE); Color Urine UA YELLOW; Glucose Urine UA NEGATIVE (Negative); Ketones Urine UA NEGATIVE (NEGATIVE); Leukocyte Esterase Urine UA NEGATIVE (NEGATIVE); Nitrite Urine UA NEGATIVE (Negative); Occult Blood Urine UA NEGATIVE (Negative); Protein Urine UA 1+ (Negative); Urobilinogen Urine UA 0.2 E.U./dL (0.2); pH Urine UA 5.5 (4.5-8.0)
[2024-08-10 14:52] LABS: Urine Volume 10mL (spun)
[2024-08-10 14:53] LABS: Bacteria Urine None Seen; Culture Indicated Urine Cult Not Indicated; RBC Urine None Seen (0-5/HPF); Squamous Epithelial Cell Urine None Seen (0-5/HPF); WBC Urine None Seen (0-5/HPF)
== END ==
LOC: LAB 12:08
PROVIDERS: Family Provider Internal Medicine; PCP Internal Medicine; Referring Provider Urology; Visit Provider Urology
DX: C68.9 Malignant neoplasm of urinary organ, unspecified (principal)
CPT/HCPCS: 81001

== ENCOUNTER → 2025-03-30 13:27 | Outpatient (CLI) | payer MEDICARE, OTHER, SELFPAY ==
[2023-01-21 15:54] VITALS: PULSE 51; RESP 18; O2SAT 100
--- NOTE | 2025-03-30 | DI.CT.S_ITS ---
PROCEDURE: CT CHEST WO CON INDICATIONS: A surveillance for bladder cancer TECHNIQUE: Noncontrast 5 mm thick sections acquired from the pulmonary apices to the posterior costophrenic angles. 1 mm lung window, 5 mm thick coronal and sagittal and 7 mm axial MIP reformats were then acquired. For radiation dose reduction, the following was used: automated exposure control, adjustment of mA and/or kV according to patient size. COMPARISON: [facility], CT, CT CHEST WO CON, 03/26/2024, 11:14. FINDINGS: Image quality: Diagnostic. Lower Neck: No enlarged lymph nodes. Thyroid: Normal CT appearance. Axillae: No enlarged lymph nodes. Chest Wall: Unremarkable. Bones: Multilevel degenerative disc disease in the thoracic spine. No suspicious bone lesions. Lungs and Pleura: Atelectatic change at the right lung base due to asymmetrically elevated hemidiaphragm. Small calcified nodules in the right lung. 0.6 cm left lower lobe nodule, 3/175 and several other smaller left lower lobe noncalcified solid nodules are stable. No new suspicious nodule or mass. No ground-glass opacity, acute consolidation, pleural effusion, or pneumothorax. Central and peripheral airways are normal without bronchial wall thickening or bronchiectasis. Heart: Heart size is normal. No pericardial effusion. Moderate coronary artery calcification. Moderate aortic valvular calcification. Thoracic Vessels: The aorta and pulmonary arteries demonstrate normal size. Moderate aortic arch calcification. Mediastinum and Shu: No enlarged lymph nodes. Esophagus: No wall thickening. No hiatal hernia. Upper Abdomen: Dictated separately. IMPRESSION: Stable bilateral lung nodules, likely benign. No evidence of new nodule, mass, or adenopathy to suggest metastatic disease in the chest. Dictated by: Akiko Lopez M.D. on 03/31/2025 at 17:08 Approved by: Akiko Lopez M.D. on 03/31/2025 at 17:20
--- NOTE | 2025-03-30 13:33 | DI.CT.S_ITS ---
PROCEDURE: CT IVP A/P W/WO INDICATIONS: UROTHELIAL CARC,PROSTATE CANCER,URETERAL CANCER TECHNIQUE: Optional 5 mm thick noncontrast images acquired from the diaphragm to the symphysis pubis. After the administration of intravenous contrast, 5 mm thick images acquired from the diaphragm to the symphysis pubis after a 10-minute delay. 2 mm thick coronal and sagittal reformats were then performed of the kidneys and ureters. For radiation dose reduction, the following was used: automated exposure control, adjustment of mA and/or kV according to patient size. COMPARISON: [facility], CT, CT IVP A/P W/WO, 03/26/2024, 11:14. FINDINGS: Image quality: Diagnostic. Kidneys and Ureters: Kidneys are normal size. 10.1 cm cyst arises from the lower right lower pole and 4.1 cm cortical medullary cyst arises from the left upper pole. Tiny cortical cysts bilaterally. No nephrolithiasis or hydronephrosis. Opacified calices appear normal. Nondilated ureters without calcifications. No hydroureter. Bladder: Partially filled urinary bladder with mild anterior bladder wall thickening. No bladder calculi. Tiny posterior bladder diverticula. Mild urothelial thickening at the left ureterovesicular junction. No visible intraluminal filling defects. OTHER: Lower chest: Right base atelectasis. Mild cardiomegaly and heavy coronary artery calcification. Liver: No solid mass. Gallbladder: No wall thickening or calcified stones. Biliary ducts: No biliary dilation. Pancreas: No ductal dilation. Spleen: Size is within normal limits. Adrenal Glands: No adrenal nodules. Stomach and Bowel: Stomach and small bowel are not obstructed. Partial colectomy and anastomosis in the right upper quadrant. No suspicious colon wall thickening or pericolonic inflammation. Peritoneum: No abnormal intraperitoneal fluid. No free air. Ventral Wall: Narrow necked, small bowel containing ventral hernia to the left of midline neck measures about 1.5 cm maximally. Small nodule just medial along the anterior abdominal wall, possibly another tiny hernia. Abdominal Nodes: No retroperitoneal or mesenteric adenopathy by size criteria. Vessels: The abdominal aorta, IVC, and portal vein are of normal caliber. Moderate coronary artery calcification. Heavy calcification at the right renal artery origin. PELVIS: Pelvic Organs: Normal size prostate gland. Normal contour. Pelvic Nodes: No enlarged lymph nodes. Miscellaneous: No inguinal hernias are seen. Bones: No aggressive osseous abnormality. Grade 1 L5-S1 anterolisthesis. Multilevel moderate to severe disc degeneration throughout the lumbar spine. IMPRESSION: Kidneys and proximal collecting systems are normal without stones, abnormal soft tissue masses, or obstruction. There is trace urothelial thickening at the left UVJ without significant proximal hydroureter. This appears stable compared to prior exam 03/26/24. Mild anterior urinary bladder wall thickening. Ventral, narrow necked hernias containing bowel. No underlying small bowel obstruction. Correlate with focal symptoms. Coronary artery calcification. Dictated by: Akiko Lopez M.D. on 03/31/2025 at 16:54 Approved by: Akiko Lopez M.D. on 03/31/2025 at 17:07
[2025-03-30 14:06] LABS: Estimated Glomerular Filt Rate > 60 mL/min (>60)
== END ==
PROVIDERS: Family Provider Internal Medicine; PCP Internal Medicine; Referring Provider Urology; Visit Provider Urology
DX: C67.8 Malignant neoplasm of overlapping sites of bladder (principal); C68.9 Malignant neoplasm of urinary organ, unspecified; C61 Malignant neoplasm of prostate; C66.1 Malignant neoplasm of right ureter; C64.1 Malignant neoplasm of right kidney, except renal pelvis; N13.8 Other obstructive and reflux uropathy; I25.10 Atherosclerotic heart disease of native coronary artery without angina pectoris; I51.7 Cardiomegaly; K43.9 Ventral hernia without obstruction or gangrene; M51.34 Other intervertebral disc degeneration, thoracic region; R91.8 Other nonspecific abnormal finding of lung field; Z90.49 Acquired absence of other specified parts of digestive tract
CPT/HCPCS: 36415; 71250; 74178; 82565; Q9967

== ENCOUNTER → 2025-07-30 08:52 | Outpatient (CLI) | payer MEDICARE, OTHER, SELFPAY ==
[2023-01-21 15:54] VITALS: PULSE 51; RESP 18; O2SAT 100
[2025-07-30 09:37] LABS: Hematocrit 44.4 % (41-53); Hemoglobin 15.3 g/dL (13.5-17.5); Mean Corpuscular HGB Conc 34.6 % (30-36); Mean Corpuscular Hemoglobin 32.3 PG (26-34); Mean Corpuscular Volume 93.6 fL (80-100); Platelet Count 241 X10^3/uL (150-400)
[2025-07-30 10:06] LABS: Blood Urea Nitrogen 9 mg/dL (9-20); Calcium 9.8 mg/dL (8.4-10.2); Carbon Dioxide 27 mmol/L (22-32); Chloride 96 mmol/L (98-107); Cholesterol 129 mg/dL (140-199); Estimated Glomerular Filt Rate > 60 mL/min (>60); Glucose 94 mg/dL (70-99); HDL Cholesterol 46 mg/dL (40-60); HEMOLYSIS < 15 (0-50); Potassium 4.5 mmol/L (3.4-5.1); Sodium 131 mmol/L (137-145); Triglycerides 78 mg/dL (35-150)
== END ==
PROVIDERS: PCP Family Medicine; Referring Provider Internal Medicine Cardiovascular Disease; Visit Provider Internal Medicine Cardiovascular Disease
DX: E78.5 Hyperlipidemia, unspecified (principal); I10 Essential (primary) hypertension
CPT/HCPCS: 36415; 80048; 80061; 85027